=== PATIENT | female | born 1945 | race Caucasian/White ===

== ENCOUNTER 2016-09-03 15:02 | Inpatient (IN) | payer OTHER, MEDICARE ==
[~2016-09-03 15:02] MED LIST: ASCO10003 PO; ATOR1TAB18 PO; ATOR20TA15 PO; BUME1TAB PO; CEFT2INJ2 IV; DOCU100C PO; GABA600T PO; GLUC1CHW PO; GNP5TAB6 PO; IPRASOL NEB; LANTUS2P SQ; LISI2.5T3 PO; LUTE20CA PO; MAGN400T PO; METF1000 PO; METO25TA3 PO; MORP1TAB24 PO; MULT1TAB84 PO; NOVOLOGP2 SQ; NOVOLOGSS SQ; OXYC-392 PO; PANT40P IV PUSH; PANT40TA3 PO; RIFA300C2 PO; SPIR25 PO; VITA10002 SL
[2016-09-03] MEDS: PANTOPRAZOLE 80 MG/100 ML NS IV SCH ×2 (15:59)
[2016-09-03 16:00] VITALS: BP 150/66; PULSE 96; RESP 23; TEMP 98.8; O2SAT 95
[2016-09-03] MEDS: SODIUM BICARBONATE 8.4% INJ 150 MEQ in DEXTROSE 5% IN WATE 1000ML INJ 1,000 ML IV SCH ×2 (16:00)
[2016-09-03 16:05] LABS: ALT (GPT) 12 U/L (10-53); ANION GAP 15 MEQ/L (5-15); AST (GOT) 25 U/L (15-37); BICARBONATE 14.8 MEQ/L (21.0-32.0); BLOOD UREA NITROGEN 30 MG/DL (7-18); CHLORIDE 103 MEQ/L (98-107); GLOMERULAR FILTRATION RATE 54 ML/MIN (>89); POTASSIUM 5.3 MEQ/L (3.5-5.1); SODIUM (NA) 133 MEQ/L (136-145)
[2016-09-03 16:08] LABS: ALKALINE PHOSPHATASE 247 U/L (45-117); TOTAL BILIRUBIN ADULT 1.1 MG/DL (0.2-1.0)
[2016-09-03] MEDS: cefTRIAXone INJ 2,000 MG in SODIUM CHLORIDE 0.9% INJ 100 ML IV SCH (16:09)
[2016-09-03] MEDS: RIFAMPIN INJ 300 MG in SODIUM CHLORIDE 0.9% INJ 100 ML IV SCH (16:10)
--- NOTE | 2016-09-03 17:10 | PD.CONS ---
[facility] Service Critical Care Medicine Consult Requested By Primary Care Physician Unknown History of Present Illness 70 year old female with past medical history of PAFIB, HTN, CHF, S/P AVR 2006, Breast cancer s/p mastectomy, colon cancer s/p partial ascending colon resection with resultant chronic diarrhea who was admitted to [facility] on 07/28/16 with GI bleeding from rectum and was found to be supratherapeutic with INR 5.8 (was on Coumadin). Her hemoglobin dropped and she underwent an EGD and colonoscopy for further evaluation but no clear source of bleeding was identified. She was started on PPI. On 08/06/16, she complained of diplopia and CT of the brain showed a right frontal ischemic CVA . She was anticoagulated with heparin and became supratherapeutic with PTT > 100. She again developed neurological changes and CT showed conversion to hemorrhagic CVA. CTA suspicious for mycotic aneurysm. She became septic with temp 104 and required intubation and shakila drip. She was transferred to [place] on 08/12/16 and underwent coiling. 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 However, RADHA did not show this. She developed respiratory failure/ HCAP and required intubation and mechanical ventilation. ID started her on ceftriaxone 2 gm IV q12 and rifampin 300 mg po bid through 09/29/16. Patient was admitted to [facility] for comprehensive rehabilitation evaluation and treatment 08/27/16. Review of Systems Except as stated in HPI Past Family Social History Allergies: Coded Allergies: Codeine (Verified Allergy, Unknown, 08/27/16) Haldol (Verified Allergy, Unknown, 08/27/16) Past Medical History Recent GI bleed status post EGD and colonoscopy without a clear source of bleeding Right frontal ischemic CVA with conversion to hemorrhagic CVA following anticoagulation with Heparin MSSA bacteremia thought to be related to late onset prosthetic valve endocarditis but with negative RADHA H/O Septic shock during recent hospitalization HCAP requiring intubation Mycotic Aneurysm s/p coiling Paroxysmal atrial fibrillation CHF Hypertension Dyslipidemia Status post MAVR 2006 Breast cancer status post mastectomy Colon cancer status post partial ascending colon resection with subsequent chronic diarrhea Recent fall with resultant L1 compression fracture Past Surgical History s/p AVR 2006 Appendectomy Breast cancer s/p mastectomy colon cancer s/p partial ascending colon resection Reported Medications Acetaminophen (Tylenol) 650 mg Q4H PRN PO; Start 08/27/16 at 16:15 Ascorbic Acid (Vitamin C) 1,000 mg DAILY PO; Start 08/28/16 at 09:00 Atorvastatin Calcium (Lipitor) 80 mg HS PO; Start 08/27/16 at 21:00 Ceftriaxone Sodium/Sodium Chloride (Rocephin Inj/NS Inj) 100 ml @ 200 mls/hr Q12H IV; Start 08/27/16 at 20:00; Stop 09/29/16 at 23:55 Cyanocobalamin (Vitamin B12) 1,000 mcg DAILY PO; Start 08/28/16 at 09:00 Dextrose (D50w (Vial) Inj) 50 ml UNSCH PRN IV; Start 08/27/16 at 16:15 Docusate Sodium (Colace) 100 mg BID PO; Start 08/27/16 at 21:00 Gabapentin (Neurontin) 600 mg HS PO; Start 08/27/16 at 21:00 Glucagon (Glucagon Inj) 1 mg UNSCH PRN OTHER; Start 08/27/16 at 16:15 Heparin Sodium (Porcine) (Heparin Central Flush) DAILY IV FLUSH; Start at 09:00 Heparin Sodium (Porcine) (Heparin Central Flush) UNSCH PRN IV FLUSH; Start at 16:15 Insulin Detemir (Levemir Inj) 10 units HS SQ; Start 08/27/16 at 21:00 Lisinopril (Prinivil) 2.5 mg HS PO; Start 08/27/16 at 21:00 Magnesium Hydroxide (Milk Of Magnesia Liq) 30 ml DAILY PRN PO; Start 08/27/16 at 16:15 Magnesium Oxide (Mag-Ox) 400 mg DAILY PO; Start 08/28/16 at 09:00 Metformin HCl (Glucophage) 1,000 mg BIDPC PO; Start 08/27/16 at 18:00 Miscellaneous (Pill Splitter) 1 ea UNSCH PRN OTHER; Start 08/27/16 at 16:30 Multivitamins (Theragran) 1 tab DAILY PO; Start 08/28/16 at 09:00 Oxycodone HCl (Roxicodone) 5 mg Q4H PRN PO; Start 08/27/16 at 16:15 Oxycodone HCl 10 mg 10 mg Q4H PRN PO; Start 08/27/16 at 16:15 Pantoprazole Sodium (Protonix) 40 mg Q12HR PO; Start 08/27/16 at 21:00 Rifampin (Rifampin) 300 mg Q12HR PO; Start 08/27/16 at 21:00; Stop 09/29/16 at 23:55 Physical Exam Vital Signs Afebrile HR 115/min RR 20s O2sat 94% on 2 lit NC Laboratory Laboratory Tests Test 09/03/16 15:19 Sodium Level 133 Potassium Level 5.3 Chloride Level 103 Carbon Dioxide Level 14.8 Anion Gap 15 Blood Urea Nitrogen 30 Creatinine 1.01 Estimat Glomerular Filtration 54 Rate Random Glucose 152 Calcium Level 7.7 Total Bilirubin 1.1 Aspartate Amino Transf 25 (AST/SGOT) Alanine Aminotransferase 12 (ALT/SGPT) Alkaline Phosphatase 247 Total Protein 5.5 Albumin 1.9 Result Diagram: 09/03/[address] abdomen and pelvis with oral and IV contrast 09/03: Distended stomach and segments of small bowel. Status post partial colectomy. No obvious pattern to suggest mechanical obstruction. Probable ileus. Moderate bilateral pleural effusions, small amount of free fluid in the peritoneal cavity. Assessment and Plan Assessment and Plan 70-year-old female with: Hematemesis Metabolic acidosis Bilateral pleural effusions PAFIB HTN CHF DM S/P Mechanical AVR 13 yrs ago, h/o Breast cancer s/p mastectomy H/o colon cancer s/p partial ascending colon resection h/o Rectal bleeding but negative EGD and colonoscopy 07/28/16 H/o Right frontal ischemic CVA with conversion to hemorrhagic CVA following heparin anticoagulation and supratherapeutic INR H/o Mycotic aneurysm s/p coiling H/o sepsis with MSSA bacteremia (suspected prosthetic valve endocarditis) and respiratory failure/HCAP Plan: Neuro: Follow neuro status. Avoid sedatives. Cardiovascular: Diurese with Bumex. Watch for hypotension. Will schedule for right sided therapeutic thoracentesis by IR for tomorrow. Obtain 2-D echo to further assess prosthetic aortic valve and LV EF. Cardiology consult as patient appears to be in CHF and has a mechanical aortic valve.. Check BNP. Pulm: Maintaining sats on NC. Bumex 1 mg IV every 12 hourly to mobilize fluid in view of bilateral pleural effusions. GI/liver: Nothing by mouth for now. GI consult requested by hospitalist service. CT abdomen and pelvis suggestive of ileus, did not suggest ischemic bowel. Further recommendations per GI. EGD planned for a.m. Protonix gtt Renal/: Strict intake output, monitor and replete elect lites, follow BUN/ creatinine. Bicarbonate drip being initiated for metabolic acidosis which may possibly be related to metformin. Lactic acid normal. Check UA, urine for ketones. ID: Continue ceftriaxone and rifampin Endocrine: SSI for glycemic control. Recommend holding metformin and other oral hypoglycemic agents at this time. Prophylaxis: PPI/SCDs. No heparin or Lovenox in view of hematemesis till cleared by GI. Further medical management per hospitalist service. Discussed with Dr. Luna. Critical care will be available as needed. Patient will remain on hospitalist service at this time. Rajendra Ellsworth MD September 03, 2016 17:10
--- NOTE | 2016-09-03 17:44 | HHI.HP ---
HPI Service [facility] Hospitalists Primary Care Physician Unknown Admission Diagnosis Diagnoses: Chief Complaint: Hematemesis Travel History International Travel<30 Days: No Contact w/Intl Traveler <30 Da: No Traveled to Known Affected Are: No History of Present Illness This is a 70-year-old female with past medical history of paroxysmal atrial fibrillation not on anti-correlation secondary to GI bleed, hypertension, CHF, status post aVR 2005, breast cancer status post mastectomy, colon cancer status post partial ascending colon resection with resultant chronic diarrhea who is being admitted to the intensive care unit as to being transferred from [facility]. The patient was admitted to [facility] on July 28 with GI bleeding from the rectum and he was found to have a supratherapeutic INR 5.8, at that time he was, at that time she was on Coumadin. The patient underwent an EGD and colonoscopy for further evaluation after her hemoglobin dropped however no clear source of bleeding was identified. She was started then on a PPI. On 08/06/16, she complained of diplopia and CT of the brain showed right frontal ischemic CVA. She was anticoagulated with heparin and had a hemorrhagic conversion. Patient had a CTA which was suspicious for mycotic aneurysm. The patient then became septic with a temperature of 104 and at the time requiring intubation and Henrry-Synephrine drip. The patient was transferred to [facility] on 08/12/16 and underwent coiling. As per review of medical records her stay was complicated by sepsis and MSSA bacteremia thought to be related to prosthetic valve endocarditis. However a RADHA was done and it failed to show this. The patient then developed respiratory failure/H And required intubation and mechanical ventilation after which the patient was treated on Rocephin 2 g IV every 12 verified then 300 mg by mouth twice a day with an end date on 09/29/16. The patient was admitted to [facility] for comprehensive rehabilitation evaluation and treatment on 08/27/16. Today the patient had an episode of coffee-ground emesis. The patient is currently complaining of abdominal pain. Has been noted that the patient desats into the high 70s when off oxygen. As per the report of the Leopoldo Means the patient complained of chest pain. The patient states that she does not remember what happened, or vomiting earlier. The patient however does state that she was feeling very nauseous yesterday. Currently denies any shortness of breath, chest pain, fevers, chills, denies any nausea. CT of the abdomen and pelvis was ordered and this showed a relatively diffuse intention of the small bowel and colon, possible representing ileus. There are a few decompressed segments of small bowel. Pattern is present to indicate small bowel obstruction. There is a small amount free fluid in the abdomen and pelvis. Moderate size bilateral pleural effusions with atelectasis and consolidation in the lower lobes as well as anasarca. Review of Systems As per history of present illness, other systems reviewed by me and negative Past Family Social History Past Medical History Recent fall with resultant L1 compression fracture Colon cancer status post partial ascending colon resection with subsequent chronic diarrhea Breast cancer status post mastectomy Status post MVR in 2005 Hypertension Dyslipidemia CHF Paroxysmal insufflation Mycotic aneurysm status post coiling HCAP requiring intubation History of septic shock during recent hospitalization MSSA bacteremia thought to be related to late onset prostatic valve endocarditis but with negative RADHA 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 Past Surgical History Status post aVR in 2005 Appendectomy Breast cancer status post mastectomy Colon cancer status post partial colon resection Reported Medications Reported Meds & Active Scripts Active Aldactone (Spironolactone) 25 Mg Tab 25 Mg PO DAILY Gnp Melatonin Maximum Str (Melatonin) 5 Mg Tab 5 Mg PO HS PRN Novolog Inj (Insulin Aspart) 100 Unit/Ml Inj 1 Unit SQ ACHS SLIDING SCALE PRN 30 Days Duoneb (Ipratropium-Albuterol Neb) 0.5-2.5 Mg/3 Ml Neb 1 Ampule NEB TID NEB 30 Days Bumetanide 1 Mg Tab 2 Mg PO BID@09,18 Protonix Inj (Pantoprazole Sodium) 40 Mg Inj 40 Mg IV PUSH Q12H Metoprolol Tartrate 25 Mg Tab 12.5 Mg PO Q12HR Morphine ER (Morphine Sulfate) 15 Mg Tab 15 Mg PO Q12HR Oxycodone (Oxycodone HCl) 5 Mg Tab 7.5 Mg PO Q4H PRN Atorvastatin (Atorvastatin Calcium) 20 Mg Tab 20 Mg PO DAILY Reported Rifampin 300 Mg Cap 300 Mg PO BID NEB end date 09/29/2016 Ceftriaxone Inj (Ceftriaxone Sodium/Dextrose) 2 Gm/50 Ml Bagp 2 Gm IV Q12H end date 09/29/2016 Multivitamin Adults (Multiple Vitamins W/ Minerals) 1 Tab 1 Tab PO DAILY Magnesium Oxide 400 Mg Tab 400 Mg PO DAILY Lisinopril 2.5 Mg Tab 2.5 Mg PO DAILY Gabapentin 600 Mg Tab 600 Mg PO HS Docusate Sodium 100 Mg Cap 100 Mg PO DAILY Vitamin B-12 (Cyanocobalamin) 1,000 Mcg Tab 1,000 Mcg SL DAILY Ascorbic Acid 1,000 Mg Tab 1,000 Mg PO DAILY Allergies: Coded Allergies: Codeine (Verified Allergy, Unknown, 08/27/16) Haldol (Verified Allergy, Unknown, 08/27/16) Active Ordered Medications Current Medications Medications (Trade) Dose Ordered Sig/Randy Route Start Time Stop Time Status Last Admin Pantoprazole Sodium 80 mg/ Sodium Chloride 100 ml @ 10 mls/hr Q10H IV 09/03/16 16:00 09/03/16 15:59 Sodium Bicarbonate 150 meq/Dextrose 1,150 ml @ 42 mls/hr Q24H IV 09/03/16 17:00 09/03/16 16:00 Ceftriaxone Sodium 2000 mg/ Sodium Chloride 100 ml @ 200 mls/hr Q12H IV 09/03/16 16:00 09/03/16 16:09 (Rifampin Inj/NS Inj) 100 ml @ 100 mls/hr Q12H IV 09/03/16 18:00 09/03/16 16:10 (Bumex Inj) 1 mg BID@,18 IV PUSH 09/03/16 18:00 Family History Father, [place]/CVA Mother, CVA Social History Patient admits to previous history of tobacco use. Denies any alcohol consumption or illicit drug use. Physical Exam Vital Signs Vital Signs Date Time Temp Pulse Resp B/P Pulse Ox O2 Delivery O2 Flow Rate FiO2 09/03/16 16:00 98.8 96 23 150/66 95 Physical Exam GENERAL: This is a well-nourished, well-developed patient, in moderate respiratory distress. SKIN: No rashes, ecchymoses or lesions. Cool and dry. HEAD: Atraumatic. Normocephalic. No temporal or scalp tenderness. EYES: Pupils equal round and reactive. Extraocular motions intact. No scleral icterus. No injection or drainage. ENT: Nose without bleeding, purulent drainage or septal hematoma. Throat without erythema, tonsillar hypertrophy or exudate. Uvula midline. Airway patent. NECK: Trachea midline. No JVD or lymphadenopathy. Supple, nontender, no meningeal signs. CARDIOVASCULAR: Regular rate and rhythm without murmurs, gallops, or rubs. RESPIRATORY: Clear to auscultation. Breath sounds equal bilaterally but decreased at the bases. No wheezes, rales, or rhonchi. GASTROINTESTINAL: Abdomen soft, non-tender, nondistended. No hepato-splenomegaly , or palpable masses. No guarding. MUSCULOSKELETAL: Extremities without clubbing, cyanosis, or edema. No joint tenderness, effusion, or edema noted. No calf tenderness. Negative Homans sign bilaterally. NEUROLOGICAL: Awake and alert. Cranial nerves II through XII intact. Motor and sensory grossly within normal limits. moves all extremities Normal speech. Laboratory Laboratory Tests Test 09/03/16 15:19 Sodium Level 133 Potassium Level 5.3 Chloride Level 103 Carbon Dioxide Level 14.8 Anion Gap 15 Blood Urea Nitrogen 30 Creatinine 1.01 Estimat Glomerular Filtration 54 Rate Random Glucose 152 Calcium Level 7.7 Total Bilirubin 1.1 Aspartate Amino Transf 25 (AST/SGOT) Alanine Aminotransferase 12 (ALT/SGPT) Alkaline Phosphatase 247 Total Protein 5.5 Albumin 1.9 Result Diagram: 09/03/16 1519 Imaging Chest x-ray obtained on 09/03/16 shows bibasilar opacities likely representing airspace consolidation with possible pleural effusions. Abdomen x-ray obtained on 09/03/16 shows a normal bowel gas pattern with mild diffuse distention of the small bowel and colon. No transition point is appreciated suggesting ileus as potential cause. CT abdomen and pelvis shows relatively diffuse distention of the small bowel and colon, possibly representing ileus. Moderate sized bilateral pleural effusions with atelectasis and consolidation in the lower lobes. Anasarca. Assessment and Plan Problem List: (1) Hematemesis ICD Code: K92.0 Status: Acute Plan: Admit the patient to the intensive care unit. CT abdomen and pelvis is suggestive of ileus, GI consulted. EGD planned in a.m. (2) Metabolic acidosis ICD Code: E87.2 Status: Acute Plan: Present on bicarbonate drip. Monitor BMP. (3) Bilateral pleural effusion ICD Code: J90 Status: Acute Plan: IR consulted for right-sided the therapeutic thoracentesis. 2-D echocardiogram to assess pleural effusions. Diuresis with Bumex 1 mg IV twice a day (4) Paroxysmal a-fib ICD Code: I48.0 Status: Chronic Plan: Continue metoprolol 12.5 mg by mouth twice a day for rate control. (5) Mycotic aneurysm ICD Code: I72.9 Status: Resolved Plan: Sp coiling (6) HTN (hypertension) ICD Code: I10 Status: Chronic Plan: I will hold lisinopril given acute worsening creatinine. We'll continue metoprolol. (7) HLD (hyperlipidemia) ICD Code: E78.5 Status: Chronic Plan: not currently on a statin. Check lipid profile. (8) MSSA (methicillin susceptible Staphylococcus aureus) septicemia ICD Code: A41.01 Status: Chronic Plan: Will continue IV Rocephin and IV rifampin. (9) NANCY (acute kidney injury) ICD Code: N17.9 Status: Acute Plan: Patient's creatinine seems to be worsening. Creatinine today 1.01, baseline seems to be 0.8-0.9. Monitor BUN/creatinine, strict I's and O's (10) HCAP (healthcare-associated pneumonia) ICD Code: J18.9 Status: Acute Plan: Antibiotics as above. (11) S/P AVR ICD Code: Z95.2 Status: Chronic Plan: Check 2-D echocardiogram. Mechanical aVR 13 years ago. (12) Anasarca ICD Code: R60.1 Status: Acute Plan: Monitor on telemetry, diurese IV Bumex 1 mg 2 times a day. Follow-up strict input and output. Insert Ruiz catheter to follow up strict I's and O's. (13) Acute hypoxemic respiratory failure ICD Code: J96.01 Status: Acute Plan: Patient currently on 50% Ventimask, descending into the high 70s when off oxygen. Patient is at risk for DVT and pulmonary emboli. Will order a CTA of the chest to rule out PE. (14) Lower extremity pain, bilateral ICD Code: M79.604 Status: Acute Plan: Bilateral lower extremity pain on exam. Check venous Dopplers to rule out DVT. (15) Diabetes ICD Code: E11.9 Status: Acute Plan: Hold metformin. We'll place on SSI with insulin NovoLog and monitor Accu -Cheks. Assessment and Plan GI prophylaxis: Patient on Protonix drip. DVT Prophylaxis: SCDs, chemoprophylaxis contraindicated secondary to recent hematemesis. 45 minutes of critical care time spent with patient. Code Status Full code Discussed Condition With Patient, manager rn case, Dr. Mayfield, [employer] Physician Certification 2 Midnight Certification Type: Admission for Inpatient Services Order for Inpatient Services The services are ordered in accordance with Medicare regulations or non- Medicare payer requirements, as applicable. In the case of services not specified as inpatient-only, they are appropriately provided as inpatient services in accordance with the 2-midnight benchmark. Estimated LOS (days): 2 days is the estimated time the patient will need to remain in the hospital, assuming treatment plan goals are met and no additional complications. Post-Hospital Plan: Home Problem Qualifiers (1) Hematemesis: Qualified Code: K92.0 - Hematemesis without nausea (2) HTN (hypertension): Qualified Code: I10 - Essential hypertension (3) Diabetes: Qualified Code: E11.9 - Type 2 diabetes mellitus without complication, unspecified termination clerk insulin use status Raleigh Casas MD September 03, 2016 17:44
[2016-09-03 18:00] VITALS: PULSE 90
[2016-09-03] MEDS: BUMETANIDE INJ 1 MG/4 ML VIAL IV PUSH SCH (18:37)
[2016-09-03] MEDS ORDERED: PILL SPLITTER OTHER PRN (19:00)
[2016-09-03] MEDS ORDERED: GLUCAGON 1 MG/ML VIAL OTHER PRN (19:30)
[2016-09-03] MEDS ORDERED: DEXTROSE 50% IN WATER 50 ML VIAL(D50) IV PRN (19:30)
[2016-09-03 19:37] VITALS: O2SAT 94
[2016-09-03 20:00] VITALS: BP 136/63; PULSE 90; RESP 17; TEMP 99; O2SAT 98
[2016-09-03] MEDS: INSULIN ASPART SUPPLEMENTAL SCALE SQ SCH (20:17)
[2016-09-03] MEDS: METOPROLOL TARTRATE 25 MG TAB PO SCH (20:17)
[2016-09-03] MEDS ORDERED: MORPHINE SULFATE 4 MG/ML INJ IV PUSH ONE (21:15)
[2016-09-03 22:00] VITALS: PULSE 88
--- NOTE | 2016-09-03 22:31 | RADRPT ---
EXAM DATE/TIME: 09/03/2016 22:02 [facility] COMPARISON: No previous studies available for comparison. INDICATIONS : Chest pain and elevated d-dimer. DOSE: 8.1 mCi Tc99m MAA IV 0.6 mCi Tc99m DTPA aerosol MEDICAL HISTORY : Carcinoma, breast. Carcinoma, colon. Myocardial infarction. SURGICAL HISTORY : Mastectomy, right. Appendectomy. Colon resection. ENCOUNTER: Initial ACUITY: 1 day PAIN SCALE: 3/10 LOCATION: Bilateral chest TECHNIQUE: Following five minutes of tidal breathing of DTPA aerosol, planar images of the lungs were performed in eight projections. The patient was then injected with MAA, and eight-view perfusion scan was perf ormed. FINDINGS: There is a homogeneous pattern of aerosol delivery to the periphery of both lungs. No focal ventilat ory defects are seen. Bilateral air trapping is noted. The perfusion lung scan demonstrates a homogenous pattern of uptake in both lungs. No segmental or s ubsegmental defects are seen. CONCLUSION: Low probability for pulmonary embolism. Mikel Ross MD on September 03, 2016 at 22:28 Board Certified Radiologist. This report was verified electronically.
[2016-09-03 22:55] LABS: BACTERIA, URINE MOD /hpf; BLOOD, URINE NEG (NEG); GLUCOSE,URINE NEG (NEG); KETONE, URINE TRACE mg/dL (NEG); MUCUS URINE FEW /lpf (OCC); NITRITE,URINE NEG (NEG); SQUAMOUS EPITHELIAL CELL URINE <1 /hpf (0-5); URINE COLOR DARK-YELLOW (YELLW/STRAW)
[2016-09-03 22:58] LABS: COMMENT (UR) CATH-CULTURE IND; CULTURE IF INDICATED CATH CULTURE IND
[2016-09-04] VITALS (21 sets, daily range): BP systolic 89–124; BP diastolic 46–61; PULSE 79–86; RESP 15–36; TEMP 98.5–100.3; O2SAT 95–100
[2016-09-04] MEDS: PANTOPRAZOLE 80 MG/100 ML NS IV SCH ×6 (01:31→20:29)
[2016-09-04 04:50] LABS: AUTOMATED NEUTROPHIL # 7.4 TH/MM3 (1.8-7.7); BASOPHIL # 0.1 TH/MM3 (0-0.2); BASOPHIL % 0.6 % (0.0-2.0); EOSINOPHIL # 0.2 TH/MM3 (0-0.4); EOSINOPHIL % 1.9 % (0.0-4.0); HEMATOCRIT 25.6 % (35.0-46.0); HEMO FLAGS DIFF FINAL; MEAN CELL VOLUME 90.7 FL (80.0-100.0); MEAN CORPUSCULAR HEMOGLOBIN 29.9 PG (27.0-34.0); MONO % 8.2 % (0.0-8.0); NEUT % 78.3 % (16.0-70.0); PLATELET COUNT 166 TH/MM3 (150-450); RED BLOOD COUNT 2.83 MIL/MM3 (4.00-5.30); RED CELL DISTRIBUTION WIDTH 21.2 % (11.6-17.2); WHITE BLOOD COUNT 9.4 TH/MM3 (4.0-11.0)
[2016-09-04] MEDS: cefTRIAXone INJ 2,000 MG in SODIUM CHLORIDE 0.9% INJ 100 ML IV SCH (06:11)
[2016-09-04] MEDS: RIFAMPIN INJ 300 MG in SODIUM CHLORIDE 0.9% INJ 100 ML IV SCH ×2 (06:11→18:10)
[2016-09-04] MEDS: INSULIN ASPART SUPPLEMENTAL SCALE SQ SCH ×4 (06:11→20:30)
--- NOTE | 2016-09-04 08:14 | EKG ---
Date Performed: 09/03/2016 Time Performed: 21:16:34 PTAGE: 70 years EKG: ATRIAL FIBRILLATION LOW QRS VOLTAGE IN EXTREMITY LEADS NONSPECIFIC T-WAVE ABNORMALITY ABNOR MAL ECG NO PREVIOUS TRACING DOCTOR: [place] Daniel Interpretating Date/Time 09/04/2016 08:13:15
[2016-09-04] MEDS: METOPROLOL TARTRATE 25 MG TAB PO SCH ×2 (08:22→20:30)
[2016-09-04] MEDS: BUMETANIDE INJ 1 MG/4 ML VIAL IV PUSH SCH (08:22)
--- NOTE | 2016-09-04 08:35 | EKG ---
Date Performed: 09/04/2016 Time Performed: 08:13:42 PTAGE: 70 years EKG: ATRIAL FIBRILLATION LOW QRS VOLTAGE IN EXTREMITY LEADS NONSPECIFIC T-WAVE ABNORMALITY ABNOR MAL ECG PREVIOUS TRACING : 09/03/2016 21.16 No significant change from previous tracing noted. DOCTOR: Cuba Daniel Interpretating Date/Time 09/04/2016 08:33:33
--- NOTE | 2016-09-04 11:07 | RADRPT ---
EXAM DATE/TIME: 09/04/2016 09:34 [facility] COMPARISON: No previous studies available for comparison. INDICATIONS : Bilateral leg pain. MEDICAL HISTORY : Myocardial infarction. Headache. Hypertension. Dyspnea. Diabetes. Breast cancer. Chemotherapy. Radi ation therapy. A.FIB. GI bleed. CVA. Mycotic aneurysm. MRSA. SURGICAL HISTORY : Appendectomy. Mastecotomy. Colon resection. EGD. Colonscopy. Mycotic aneurysm coiling. [place] valve re placment. Intabation. ENCOUNTER: Initial ACUITY: 1 day PAIN SCORE: Non-responsive LOCATION: Bilateral legs. TECHNOLOGIST IMPRESSION: DVT: NO DVT SUPERFICIAL THROMBUS: NO SUPERFICIAL THROMBUS TECHNIQUE: Venous ultrasound of the left and right leg was performed from the inguinal ligament to the proximal calf. Real-time, color Doppler and spectral tracing, compression and augmentation techniques were us ed. FINDINGS: RIGHT LEG: There is normal compressibility of the deep venous system from the inguinal region to the proximal ca lf. No echogenic clot is seen in the lumen of the common femoral, femoral, popliteal, and posterior tibial veins. There is a normal response of the venous system to proximal and distal augmentation an d respiration. LEFT LEG: There is normal compressibility of the deep venous system from the inguinal region to the proximal ca lf. No echogenic clot is seen in the lumen of the common femoral, femoral, popliteal, and posterior tibial veins. There is a normal response of the venous system to proximal and distal augmentation an d respiration. CONCLUSION: No evidence of DVT. Rohith Gibson MD on September 04, 2016 at 11:05 Board Certified Radiologist. This report was verified electronically.
[2016-09-04] MEDS ORDERED: Vancomycin Consult Pharmacy 1 EA OTHER SCH (11:15)
[2016-09-04] MEDS ORDERED: VANCOMYCIN INJ 1,000 MG in SODIUM CHLOR 0.9% 250 ML INJ 250 ML IV SCH (11:15)
--- NOTE | 2016-09-04 12:00 | MB ---
cc: JACKY BLACK DO DATE OF CONSULTATION: 09/04/2016 REASON FOR CONSULTATION: Congestive heart failure. HISTORY OF PRESENT ILLNESS 70-year-old female who originally presented to a rehab at [place] on August 27, 2016. The patient has had a long complicated course of multiple hospitals and appears that she was originally admitted to [facility] on July 28, 2016 with a GI bleed and was found have a super therapeutic INR 5.8. At that time she was on Coumadin for her atrial fibrillation with a history of atrial fibrillation with a history of AVR. She will underwent EGD and colonoscopy, however no clear source of bleeding was identified. On August 06, 2016 she complained of diplopia and CT the brain showed a right frontal ischemic CVA. She was anticoagulated with heparin and then had a hemorrhagic conversion of her CVA. The patient had a CTA which would showed suspicion for a mycotic aneurysm. At the time the patient was septic and had a temperature of 104 degrees Fahrenheit and was intubated and started on a Henrry-Synephrine drip. The patient was transferred to [facility] and on August 12, 2016 underwent coiling of her mycotic aneurysm. During her stay she had other complications including sepsis and MSSA bacteremia. A transesophageal echocardiogram was done and failed to show prosthetic valve endocarditis. While there the patient developed respiratory failure and required intubation. The patient was then he eventually transferred to [place] rehab on August 27, 2016. On September 03, 2016 the patient had an episode of coffee-ground emesis. The patient was also complaining of abdominal pain at that time. She was also noted to desaturate into the high 70s when off oxygen. Hemoglobin was checked this morning and she had a drop of 3 grams. She was also noted to have moderate size bilateral pleural effusions with atelectasis. In seeing her today she is currently lethargic and unable to answer questions. PAST MEDICAL HISTORY 1. Recent GI bleed. 2. 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 Following anticoagulation with heparin. 3. MSSA bacteremia. 4. History of septic shock. 5. HCAP requiring intubation. 6. Mycotic aneurysm. 7. Paroxysmal atrial fibrillation previously on anticoagulation which has since been stopped due to due to hemorrhagic CVA. 8. History of congestive heart failure. 9. Dyslipidemia. 10. Hypertension 11. Breast cancer 12. Colon cancer PAST SURGICAL HISTORY 1. AVR (2005) no true documentation of bioprosthetic vs metal 2. Esophagogastroduodenoscopy and colonoscopy (July 2016) with unclear source of bleeding. 3. Coiling of mycotic aneurysm (August 2016) 4. Mastectomy due to breast cancer. 5. Partial ascending colon resection secondary to colon cancer. 6. Appendectomy. ALLERGIES 1. CODEINE 2. HALDOL MEDICATIONS: 1. Lisinopril 2.5 mg daily 2. Magnesium oxide 400 mg daily. 3. Gabapentin 600 mg every bedtime 4. DuoNeb t.i.d. 5. Rifampin 300 mg b.i.d. 6. Metoprolol tartrate 12.5 mg q 12. 7. Dolacet 100 mg daily 8. Rocephin 2 grams every 12 hours. 9. Lipitor 20 mg daily 10. Insulin sliding scale. 11. T-max 2 mg b.i.d. 12. Aldactone 25 mg daily 13. Morphine ER 15 mg q. 12. 14. Oxycodone 7.5 mg every 4 hours needed. 15. Protonix 40 mg IV q. 12. FAMILY HISTORY Father had a history of MT and CVA. Mother had a history of CVA. SOCIAL HISTORY The patient had a previous history of tobacco abuse. Denies alcohol or drug abuse. REVIEW OF SYSTEMS Unable to obtain at this time secondary to the patient's current state. PHYSICAL EXAMINATION VITAL SIGNS: Temperature 99.8, heart rate 80, blood pressure 122/58, respirations 22, pulse ox 96% on 4 liters. IN GENERAL: The patient is currently lethargic, per previous records. She was oriented x3. Pupils are equal and round bilaterally. Mucous membranes moist. NECK: Supple. No JVD at 45 degrees. No carotid bruits heard bilaterally. Carotid upstroke is brisk in nature. It is irregularly irregular. Positive first and second heart sounds with a 1/6 crescendo-decrescendo murmur to the right sternal border. LUNGS: Lungs have decreased breath sounds at bilateral bases but no overt wheezes, rales or rhonchi. ABDOMEN: The abdomen is soft, nontender, nondistended, no organomegaly noted. EXTREMITIES: Show trace edema bilaterally but no erythema clubbing or cyanosis. NEUROLOGICALLY: Unable to assess due to the patient's current lethargic state. LABORATORY FINDINGS Hemoglobin 8.5, hematocrit 25.6, platelets 166. Potassium 5.3, BUN 30, creatinine 1.01. Troponin 0.06 x3. BNP 958, albumin 1.9. Gastric occult blood positive. Electrocardiogram (September 04, 2016 at 0813) atrial fibrillation with controlled ventricular response, low QRS voltage in extremity leads, nonspecific ST-T wave changes. IMPRESSION 1. Hematemesis. 2. Metabolic acidosis. 3. Bilateral pleural effusions with a history of congestive heart failure. 4. Paroxysmal atrial fibrillation not currently on anticoagulation due to hemorrhagic CVA. 5. Myocardial aneurysm status post coiling (August 2016) 6. History of hypertension 7. History of hyperlipidemia 8. Recent MSSA bacteremia with sepsis. 9. Acute kidney injury. 10. Healthcare associated pneumonia. 11. History of aortic valve replacement, unsure at this time if bioprosthetic or metal 12. Acute hypoxemic respiratory failure. 13. Right frontal ischemic cerebrovascular accident (August 06, 2016) with hemorrhagic conversion after receiving heparin. RECOMMENDATIONS 1. The patient currently has bilateral pleural effusions which may be due to congestive heart failure. We will get an echocardiogram to assess her overall left ventricular function and to evaluate her aortic valve replacement. She had a Transesophageal echocardiogram done recently which showed no endocarditis but this may need to be repeated if there is concern for a subacute endocarditis. This will depend on her clinical course. 2. Agree with thoracentesis by interventional radiology. 3. She does have a minimally elevated troponin and there is question of chest pain yesterday but she does not currently appear to be in acute coronary syndrome. Overall she would not be a candidate for cardiac catheterization, so would not go through with an ischemic evaluation. 4. As far as her atrial fibrillation goes, it is currently controlled. She does not appear to be an anticoagulation candidate secondary to her recent hemorrhagic cerebrovascular accident. 5. We will attempt to diurese her, but we will have to watch her for overall renal function. 6. She may have bilateral pleural effusions as well as anasarca due to hypoalbuminemia. 7. Final concern would be if her valve is metallic, as she does not appear to be an anticoagulation candidate due to her recent hemorrhagic CVA and possible GI Bleed off anticoagulation. 8. Further recommendations will be made based on the hospital course. Thank you for allowing me to see Pamella Patel, if there are any questions please do not hesitate to call. Jacky Dan /10:12 AM /11:16 AM [facility]ERSepide[facility]
[2016-09-04] MEDS: SODIUM CHLOR 0.9% 1000 ML INJ 1,000 ML IV SCH ×2 (12:11→20:30)
[2016-09-04] MEDS: PIPERACIL-TAZO 4.5 GM PREMIX 100 ML IV SCH ×2 (12:11→20:30)
[2016-09-04 12:17] LABS: ALT (GPT) 11 U/L (10-53); ANION GAP 10 MEQ/L (5-15); AST (GOT) 23 U/L (15-37); BICARBONATE 19.8 MEQ/L (21.0-32.0); BLOOD UREA NITROGEN 32 MG/DL (7-18); CHLORIDE 104 MEQ/L (98-107); GLOMERULAR FILTRATION RATE 36 ML/MIN (>89); POTASSIUM 5.3 MEQ/L (3.5-5.1); SODIUM (NA) 134 MEQ/L (136-145)
[2016-09-04 12:19] LABS: ALKALINE PHOSPHATASE 202 U/L (45-117)
[2016-09-04 12:37] LABS: BLOOD GAS BASE EXCESS -8.8 mmol/L (-2-2); BLOOD GAS CARBOXYHEMOGLOBIN 2.9 % (0-4); BLOOD GAS HCO3 17 mmol/L (22-26); BLOOD GAS METHEMOGLOBIN 1.1 % (0-2); BLOOD GAS O2 HGB SATURATION 91 % (90-100); BLOOD GAS PCO2 37 mmHg (38-42); BLOOD GAS PO2 74 mmHg (61-120); BLOOD GAS TOTAL HGB 8.5 G/DL (12.0-16.0); TEMP CORR TO 98.6
[2016-09-04 12:42] LABS: CRITICAL VALUE YES; DRAW SITE LT RADIAL; LITER FLOW 4 L/M; NUMBER OF ARTERIAL PUNCTURES 2; OXYGEN DEVICE NASAL CANNULA; STAT YES; ULNAR PULSE Y
[2016-09-04] MEDS: VANCOMYCIN INJ 1,750 MG in SODIUM CHLORID 0.9% 500 ML INJ 500 ML IV SCH (14:27)
[2016-09-04] MEDS ORDERED: SODIUM CHLORID 0.9% 500 ML INJ 500 ML IV ONE ×2 (15:00→20:00)
--- NOTE | 2016-09-04 15:31 | HHI.PR ---
Subjective Remarks Deferred entry - patient seen at 11:30 am As per RN patient very lethargic Patient wakes up for a few seconds and then goes back to sleep Patient had a low grade fever with a Tmax of 100.3 tachypneic Objective Vitals Vital Signs Date Time Temp Pulse Resp B/P Pulse Ox O2 Delivery O2 Flow Rate FiO2 09/04/16 13:05 Nasal Cannula 4.00 09/04/16 13:00 81 09/04/16 13:00 81 19 96/46 98 09/04/16 12:00 83 09/04/16 12:00 99.7 83 17 98/48 96 09/04/16 11:01 84 09/04/16 11:01 84 17 104/47 96 09/04/16 11:00 83 09/04/16 11:00 83 17 95 09/04/16 10:00 84 09/04/16 10:00 84 18 122/58 95 09/04/16 09:00 81 09/04/16 09:00 81 32 122/58 97 09/04/16 08:00 79 09/04/16 08:00 100.3 79 18 117/52 97 09/04/16 06:00 81 09/04/16 04:00 84 09/04/16 04:00 99.8 84 36 96/49 96 09/04/16 02:00 84 09/04/16 00:00 84 09/04/16 00:00 99.3 84 17 106/51 97 09/03/16 22:00 88 09/03/16 20:00 90 09/03/16 20:00 99.0 90 17 136/63 98 09/03/16 19:37 94 Nasal Cannula 5.00 09/03/16 18:00 90 09/03/16 16:00 98.8 96 23 150/66 95 09/03/16 16:00 96 I/O 09/03/16 09/03/16 09/03/16 09/04/16 09/04/16 09/04/16 07:00 15:00 23:00 07:00 15:00 23:00 Intake Total 644 ml 284 ml Output Total 225 ml 75 ml Balance 419 ml 209 ml Intake Oral 0 ml 0 ml IV Total 644 ml 284 ml Output Urine Total 225 ml 75 ml # Bowel Movements 0 0 Result Diagram: 09/04/16 0400 09/04/16 1130 Imaging Last Impressions Lower Extremity Ultrasound 09/04/16 0000 Signed Impressions: Service Date/Time: Sunday, September 04, 2016 09:34 - CONCLUSION: No evidence of DVT. Rohith Gibson MD Lung Scan-VQ Nuclear Medicine 09/03/16 0000 Signed Impressions: Service Date/Time: Saturday, September 03, 2016 22:02 - CONCLUSION: Low probability for pulmonary embolism. Mikel Ross MD Objective Remarks GENERAL: This is a well-nourished, well-developed patient, nad. SKIN: No rashes, ecchymoses or lesions. Cool and dry. HEAD: Atraumatic. Normocephalic. No temporal or scalp tenderness. EYES: Pupils equal round and reactive. Extraocular motions intact. No scleral icterus. No injection or drainage. ENT: Nose without bleeding, purulent drainage or septal hematoma. Throat without erythema, tonsillar hypertrophy or exudate. Uvula midline. Airway patent. NECK: Trachea midline. No JVD or lymphadenopathy. Supple, nontender, no meningeal signs. CARDIOVASCULAR: Regular rate and rhythm without murmurs, gallops, or rubs. RESPIRATORY: Clear to auscultation. Breath sounds equal bilaterally but decreased at the bases. No wheezes, rales, or rhonchi. GASTROINTESTINAL: Abdomen soft, non-tender, nondistended. No hepato-splenomegaly , or palpable masses. No guarding. MUSCULOSKELETAL: Extremities without clubbing, cyanosis, or edema. No joint tenderness, effusion, or edema noted. No calf tenderness. Negative Homans sign bilaterally. NEUROLOGICAL: Lethargic. Difficult to asses rest of neurologic exam at this time. moves all extremities. Medications and IVs Current Medications Medications (Trade) Dose Ordered Sig/Randy Route Start Time Stop Time Status Last Admin Pantoprazole Sodium 80 mg/ Sodium Chloride 100 ml @ 10 mls/hr Q10H IV 09/03/16 16:00 09/04/16 12:15 Sodium Bicarbonate 150 meq/Dextrose 1,150 ml @ 42 mls/hr Q24H IV 09/03/16 17:00 09/03/16 16:00 Ceftriaxone Sodium 2000 mg/ Sodium Chloride 100 ml @ 200 mls/hr Q12H IV 09/03/16 16:00 Hold 09/04/16 06:11 (Rifampin Inj/NS Inj) 100 ml @ 100 mls/hr Q12H IV 09/03/16 18:00 09/04/16 06:11 (Bumex Inj) 1 mg BID@09,18 IV PUSH 09/03/16 18:00 Hold 09/04/16 08:22 (Lopressor) 12.5 mg Q12HR PO 09/03/16 21:00 09/04/16 08:22 (Pill Splitter) 1 ea UNSCH PRN OTHER 09/03/16 19:00 (D50w (Vial) Inj) 50 ml UNSCH PRN IV 09/03/16 19:30 Glucagon 1 mg 1 mg UNSCH PRN OTHER 09/03/16 19:30 Pharmacy Profile Note 0 ml @ 0 mls/hr UNSCH OTHER 09/04/16 11:15 Piperacillin Sod/ Tazobactam Sod 100 ml @ 200 mls/hr Q8H IV 09/04/16 12:00 09/04/16 12:11 Sodium Chloride 1,000 ml @ 100 mls/hr Q10H IV 09/04/16 12:00 09/04/16 12:11 (Vancomycin Inj/ NS 500 ml Inj) 517.5 ml @ 250 mls/hr Q18H IV 09/04/16 14:00 09/04/16 14:27 Miscellaneous Information SPECIFIC LAB TO BE DRAWN:VANCOMYCIN TROUGH DATE TO... ONCE ONCE .XX 09/06/16 19:45 09/06/16 19:46 (NS 500 ml Inj) 500 ml @ 500 mls/hr BOLUS ONCE IV 09/04/16 15:00 09/04/16 15:59 UNV Urinary Catheter: Yes Assessment to: Continue Ruiz insert reason: Measure Accurate Output Vascular Central Line Catheter: No A/P Problem List: (1) Sepsis ICD Code: A41.9 Status: Acute Plan: Present on admission - patient with hr > 93 and RR > 20, now has elevated temp 100.3 F Patient previously on Rocephin and Azithromycin for treatment of HCAP. Will broaden antibiotic therapy and DC previous antibiotics and start IV vancomycin and Zosyn. Consult infectious disease. (2) Encephalopathy ICD Code: G93.40 Status: Acute Plan: Likely metabolic encephalopathy from sepsis. Will check CT brain due to recent history of MCV. (3) Hematemesis ICD Code: K92.0 Status: Acute Plan: Admit the patient to the intensive care unit. CT abdomen and pelvis is suggestive of ileus, GI consulted. EGD planned today fu Gi recommendations Hemoglobin dropped down to 8.5. Continue to monitor H&H. Transfuse for hemoglobin less than 7, or less than 8 if the patient is actively bleeding. Goal hemoglobin more than 9. (4) Metabolic acidosis ICD Code: E87.2 Status: Acute Plan: Metacarpal BMP is trending up. Continue bicarbonate drip. (5) Bilateral pleural effusion ICD Code: J90 Status: Acute Plan: IR consulted for right-sided the therapeutic thoracentesis. 2-D echocardiogram to assess pleural effusions. Diuresis with Bumex 1 mg IV twice a day (6) Paroxysmal a-fib ICD Code: I48.0 Status: Chronic Plan: Continue metoprolol 12.5 mg by mouth twice a day for rate control. Will add holding parameters since patient slightly hypotensive. (7) Mycotic aneurysm ICD Code: I72.9 Status: Resolved Plan: Sp coiling (8) HTN (hypertension) ICD Code: I10 Status: Chronic Plan: Patient hypotensive. will hold beta monse for now due to hypotension. (9) HLD (hyperlipidemia) ICD Code: E78.5 Status: Chronic Plan: not currently on a statin. Check lipid profile. (10) MSSA (methicillin susceptible Staphylococcus aureus) septicemia ICD Code: A41.01 Status: Chronic Plan: Will place on Iv Vancomycin and zosym, Previously on Rocephin and Azithromycin. check blood cultures consult infectious disease. (11) NANCY (acute kidney injury) ICD Code: N17.9 Status: Acute Plan: Patient's creatinine seems to be worsening. Creatinine today 1.4, baseline seems to be 0.8-0.9. Will hols diuretics and start on Iv fluids. Monitor BUN/creatinine, strict I's and O's (12) HCAP (healthcare-associated pneumonia) ICD Code: J18.9 Status: Acute Plan: Antibiotics as above. CTA chest ordered and pending. (13) S/P AVR ICD Code: Z95.2 Status: Chronic Plan: Check 2-D echocardiogram. Mechanical aVR 13 years ago. (14) Anasarca ICD Code: R60.1 Status: Acute Plan: Follow-up strict input and output. Patient is oliguric today - will hold diuretics. (15) Acute hypoxemic respiratory failure ICD Code: J96.01 Status: Acute Plan: Likely due to PNA and HCAP. Patient on ventimask 09/03 down to 4 liters nasal canula. VQ scan low probability for PE. (16) Lower extremity pain, bilateral ICD Code: M79.604 Status: Acute Plan: Bilateral lower extremity pain on exam. DVT ruled out with bilat venous doppler. (17) Diabetes ICD Code: E11.9 Status: Acute Plan: Continue to hold metformin. Blood sugars seem to be stable. Continue SSI with insulin novolog, continue to monitor accuchecks. Assessment and Plan GI prophylaxis - continue protonix drip dvt prophylaxis - SCD's Discharge Planning Continue to monitor in the intensive care unit. 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
--- NOTE | 2016-09-04 16:10 | RADRPT ---
EXAM DATE/TIME: 09/04/2016 15:22 [facility] COMPARISON: No previous studies available for comparison. INDICATIONS : Altered mental status. RADIATION DOSE: 65.23 CTDIvol (mGy) MEDICAL HISTORY : Hypertension. Carcinoma, breast. SURGICAL HISTORY : Appendectomy. ENCOUNTER: Initial ACUITY: 1 day PAIN SCALE: Non-responsive LOCATION: cranial TECHNIQUE: Multiple contiguous axial images were obtained of the head. Using automated exposure control and adj ustment of the mA and/or kV according to patient size, radiation dose was kept as low as reasonably a chievable to obtain optimal diagnostic quality images. FINDINGS: CEREBRUM: The ventricles are normal for age. There is bilateral cortical atrophy. There appears to be a possibl e mass high along the right posterior cerebral vertex measuring 1.3 cm round by edema. There are some calcifications also seen high along the right cerebral vertex. No significant mass effect or midline shift is demonstrated.. POSTERIOR FOSSA: The cerebellum and brainstem are intact. The 4th ventricle is midline. The cerebellopontine angle i s unremarkable. EXTRACRANIAL: The visualized portion of the orbits is intact. Chronic sinus disease in the sphenoid sinuses. SKULL: The calvaria is intact. No evidence of skull fracture. CONCLUSION: 1. There appears to be an intracranial mass measuring 1.3 cm surrounded by vasogenic edema high along the right cerebral vertex. In a patient with a previous history of breast cancer, metastatic disease is the primary consideration. Recommend MRI of the brain with and without contrast further evaluatio naty Gibson MD on September 04, 2016 at 16:04 Board Certified Radiologist. This report was verified electronically.
--- NOTE | 2016-09-04 16:43 | PD.CONS ---
History of Present Illness Service Infectious disease Consult Requested By Dr Luna Reason for Consult Evaluate patient with UTI, sepsis, HCAP, mental status change Primary Care Physician Unknown Diagnoses: History of Present Illness Patient seen and examined. Records reviewed. Patient is a 70-year-old female, [facility] after she had coffee ground emesis, and hypoxemia. Patient was initially at [facility] with an acute GI bleed back in July 2016. She had a very high pro-time, and she had been on Coumadin for her atrial fibrillation and aVR. GI workup at that time did not reveal any active source of bleeding. 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 She was started on anticoagulation, and had hemorrhagic conversion of her stroke. She underwent CTA and finding showed suggestion of mycotic aneurysm. She apparently developed sepsis at that time and required pressors for shock, she was intubated. She was subsequently transferred to the [facility] on August 12, and underwent coiling. 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 RADHA however did not show any vegetation in any of her valves. She subsequently improved and got extubated. She was transferred to [facility] for comprehensive rehabilitation on August 28, 2016. Infectious disease recommendation at that time is for her to complete Rocephin and rifampin September. While at [place], she was doing rehabilitation. She's had some problem with lethargy. On the day of admission she apparently had nausea and vomiting and had some abdominal pain and some chest pain. She had coffee ground emesis. Her O2 saturation at that time was in the 70s, and she appeared dyspneic. She was therefore admitted to the [facility] for closer monitoring and further evaluation and treatment. While at [place] she had 2 units of packed RBC that was transfused. Her hemoglobin was staying around 10, and on the day of admission it was down to 8. She's had some low-grade temps. According to the nurse she's been very lethargic this morning. Patient just came back from the radiology department for she had thoracenteses as well as CT of the head. Patient currently is on nasal O2. She is not on any pressors. Monitor shows atrial fibrillation. CT of the abdomen and pelvis showed possible ileus, and she had evidence of bilateral pleural effusion and consolidation. She also had a urinalysis which showed some pyuria. Patient's urine output has been low, and her creatinine had gone up to 1.44. It was 0.8 previously. Infectious disease consultation has been requested to evaluate patient with multiple problems including sepsis, UTI, possible pneumonia. Review of Systems ROS Limitations: Clinical Condition, Altered Mental Status Past Family Social History Allergies: Coded Allergies: Codeine (Verified Allergy, Unknown, 08/27/16) Haldol (Verified Allergy, Unknown, 08/27/16) Past Medical History Recent fall with resultant L1 compression fracture Colon cancer status post partial ascending colon resection with subsequent chronic diarrhea Breast cancer status post mastectomy Status post MVR in 2005 Hypertension Dyslipidemia CHF Paroxysmal insufflation Mycotic aneurysm status post coiling HCAP requiring intubation History of septic shock during recent hospitalization MSSA bacteremia thought to be related to late onset prostatic valve endocarditis but with negative RADHA 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 Past Surgical History Status post aVR in 2005 Appendectomy Breast cancer status post mastectomy Colon cancer status post partial colon resection Active Ordered Medications Insulin Protonix Zosyn Rifampin Sodium bicarbonate Vanco Social History Patient admits to previous history of tobacco use. Denies any alcohol consumption or illicit drug use. Physical Exam Vital Signs Vital Signs Date Time Temp Pulse Resp B/P Pulse Ox O2 Delivery O2 Flow Rate FiO2 09/04/16 14:00 83 09/04/16 13:05 Nasal Cannula 4.00 09/04/16 13:00 81 09/04/16 13:00 81 19 96/46 98 09/04/16 12:00 83 09/04/16 12:00 99.7 83 17 98/48 96 09/04/16 11:01 84 09/04/16 11:01 84 17 104/47 96 09/04/16 11:00 83 09/04/16 11:00 83 17 95 09/04/16 10:00 84 09/04/16 10:00 84 18 122/58 95 09/04/16 09:00 81 09/04/16 09:00 81 32 122/58 97 09/04/16 08:00 79 09/04/16 08:00 100.3 79 18 117/52 97 09/04/16 06:00 81 09/04/16 04:00 84 09/04/16 04:00 99.8 84 36 96/49 96 09/04/16 02:00 84 09/04/16 00:00 84 09/04/16 00:00 99.3 84 17 106/51 97 09/03/16 22:00 88 09/03/16 20:00 90 09/03/16 20:00 99.0 90 17 136/63 98 09/03/16 19:37 94 Nasal Cannula 5.00 09/03/16 18:00 90 Physical Exam GENERAL: Patient is an obese, well-developed patient, awake and alert, not in respiratory distress. SKIN: Warm and dry. No generalized rash, no ecchymoses and no evidence of embolic lesions. HEAD: Atraumatic. Normocephalic. No temporal wasting, or tenderness. EYES: [place] conjunctiva. Has scleral hemorrhage on R, and has scleral edema. Pupils equal, round and reactive to light. Extraocular movements full and intact. EARS, NOSE AND THROAT: Nose without bleeding or purulent nasal discharge. No sinus tenderness. Very dry oral mucosa. NECK: Trachea midline. Supple and not tender, no meningeal signs CARDIOVASCULAR: Irregular rate and rhythm. No rubs heard. Harsh systolic murmur at base of the heart RESPIRATORY: Coarse breath sounds bilaterally. No rales, wheezing or rhonchi. Decreased at bases ABDOMEN: Globular and distended, has a large incisional/ventral hernia, has diffuse tenderness, no guarding or rebound, bowel sounds present and hypoactive. EXTREMITIES: No clubbing, cyanosis. Both feet cool to touch, no mottling. , Skin tight both LE. No calf tenderness. NEUROLOGICAL: Answered my questions, no facial asymmetry. Equal hand surveillance agent, moves toes, no Babinski. PSYCHIATRIC: Awakens and answered my questions and cooperative. LINE: No evidence of infection : Ruiz in place, mow UO, clear yellow urine Laboratory Laboratory Tests Test 09/03/16 09/03/16 09/03/16 09/04/16 19:55 20:40 21:20 04:00 B-Type Natriuretic Peptide 958 Urine Color DARK-YELLOW Urine Turbidity HAZY Urine pH 5.0 Urine Specific [place] 1.024 Urine Protein 30 Urine Glucose (UA) NEG Urine Ketones TRACE Urine Occult Blood NEG Urine Nitrite NEG Urine Bilirubin NEG Urine Urobilinogen LESS THAN 2.0 Urine Leukocyte Esterase SMALL Urine RBC 10 Urine WBC 22 Urine Squamous Epithelial <1 Cells Urine Bacteria MOD Urine Mucus FEW Urine Yeast (Budding) MOD Microscopic Urinalysis Comment CATH-CULTURE IND Troponin I 0.06 White Blood Count 9.4 Red Blood Count 2.83 Hemoglobin 8.5 Hematocrit 25.6 Mean Corpuscular Volume 90.7 Mean Corpuscular Hemoglobin 29.9 Mean Corpuscular Hemoglobin 33.0 Concent Red Cell Distribution Width 21.2 Platelet Count 166 Mean Platelet Volume 8.1 Neutrophils (%) (Auto) 78.3 Lymphocytes (%) (Auto) 11.0 Monocytes (%) (Auto) 8.2 Eosinophils (%) (Auto) 1.9 Basophils (%) (Auto) 0.6 Neutrophils # (Auto) 7.4 Lymphocytes # (Auto) 1.0 Monocytes # (Auto) 0.8 Eosinophils # (Auto) 0.2 Basophils # (Auto) 0.1 CBC Comment DIFF FINAL Differential Comment Test 09/04/16 09/04/16 09/04/16 05:50 11:30 12:33 Troponin I 0.06 Sodium Level 134 Potassium Level 5.3 Chloride Level 104 Carbon Dioxide Level 19.8 Anion Gap 10 Blood Urea Nitrogen 32 Creatinine 1.44 Estimat Glomerular Filtration 36 Rate Random Glucose 123 Lactic Acid Level 1.2 Calcium Level 7.6 Total Bilirubin 1.0 Aspartate Amino Transf 23 (AST/SGOT) Alanine Aminotransferase 11 (ALT/SGPT) Alkaline Phosphatase 202 Total Protein 5.2 Albumin 1.7 Blood Gas Puncture Site LT RADIAL Blood Gas Patient Temperature 98.6 Blood Gas HCO3 17 Blood Gas Base Excess -8.8 Blood Gas Oxygen Saturation 91 Arterial Blood pH 7.28 Arterial Blood Partial 37 Pressure CO2 Arterial Blood Partial 74 Pressure O2 Arterial Blood Oxygen Content 11.0 Arterial Blood 2.9 Carboxyhemoglobin Arterial Blood Methemoglobin 1.1 Blood Gas Hemoglobin 8.5 Oxygen Delivery Device NASAL CANNULA Blood Gas Liter Flow 4 Date/Time Procedure Status Source Growth 09/04/16 11:57 Aerobic Blood Culture Received Blood Peripheral Pending 09/04/16 11:57 Anaerobic Blood Culture Received Blood Peripheral Pending 09/04/16 05:50 MRSA Surveillance Culture Received Nasopharyngeal Pending 09/03/16 20:40 Urine Culture - Preliminary Resulted Urine Catheterized Urine IMMATURE GROWTH - REINCUBATE Result Diagram: 09/04/16 0400 09/04/16 1130 Imaging RADIOLOGY STUDIES/FILMS REVIEWED Lower Extremity Ultrasound 09/04/16 0000 Signed Impressions: Service Date/Time: Sunday, September 04, 2016 09:34 - CONCLUSION: No evidence of DVT. Rohith Gibson MD Lung Scan-VQ Nuclear Medicine 09/03/16 0000 Signed Impressions: Service Date/Time: Saturday, September 03, 2016 22:02 - CONCLUSION: Low probability for pulmonary embolism. Mikel Ross MD Assessment and Plan Assessment and Plan IMPRESSION Sepsis, source? - has UTI - ?new PNA, ?aspiration - on Rx for MSSA sepsis, and presumed PVE, AVR, RADHA negative - has ileus Recurrent GIB CVA, S/P coiling of aneurysm Chronic atrial fib S/P AVR 2006 Renal insufficiency, ?due to sepsis RECOMMENDATION Continue Vanco Contnue Zosyn Add Diflucan Follow C/S Monitor progress I will determine course of Rx once work-up completed I will follow along with you Thank you for this consultation Discussed Condition With D/W Mary Kelley MD September 04, 2016 16:43
--- NOTE | 2016-09-04 16:54 | HHI.GIFU ---
Subjective Remarks Pt not alert today. Per RN no hematemesis. Pt has been disoriented and lethargic all day. No BM, no urine output all day. From Consult 09-03-16 This is a 70 year old [lady] who began having coffeeground emesis 3 days ago and pos hemoccult. She says she has had this before but "not this bad". she is unable to elaborate further. She admits abdominal pain, cannot qualify further. Her last BM was 2 d ago and it is not known if it was tarry or had red blood. She says she had EGD/colonoscopy last week, per EMR that was done at [place] [facility] 07/28 and no source of bleeding was found, pt was also found to have supratherapeutic INR. Denies frequent NSAID use. Denies heavy drinking. pt is poor historian. (Shanthi Mckoy) Objective Vitals I&O Vital Signs Date Time Temp Pulse Resp B/P Pulse Ox O2 Delivery O2 Flow Rate FiO2 09/04/16 14:00 83 09/04/16 13:05 Nasal Cannula 4.00 09/04/16 13:00 81 09/04/16 13:00 81 19 96/46 98 09/04/16 12:00 83 09/04/16 12:00 99.7 83 17 98/48 96 09/04/16 11:01 84 09/04/16 11:01 84 17 104/47 96 09/04/16 11:00 83 09/04/16 11:00 83 17 95 09/04/16 10:00 84 09/04/16 10:00 84 18 122/58 95 09/04/16 09:00 81 09/04/16 09:00 81 32 122/58 97 09/04/16 08:00 79 09/04/16 08:00 100.3 79 18 117/52 97 09/04/16 06:00 81 09/04/16 04:00 84 09/04/16 04:00 99.8 84 36 96/49 96 09/04/16 02:00 84 09/04/16 00:00 84 09/04/16 00:00 99.3 84 17 106/51 97 09/03/16 22:00 88 09/03/16 20:00 90 09/03/16 20:00 99.0 90 17 136/63 98 09/03/16 19:37 94 Nasal Cannula 5.00 09/03/16 18:00 90 I/O 09/03/16 09/03/16 09/03/16 09/04/16 09/04/16 09/04/16 07:00 15:00 23:00 07:00 15:00 23:00 Intake Total 644 ml 284 ml 902 ml Output Total 225 ml 75 ml 10 ml Balance 419 ml 209 ml 892 ml Intake Oral 0 ml 0 ml 0 ml IV Total 644 ml 284 ml 902 ml Output Urine Total 225 ml 75 ml 10 ml # Bowel Movements 0 0 0 Laboratory Laboratory Tests Test 09/03/16 09/03/16 09/03/16 09/04/16 19:55 20:40 21:20 04:00 B-Type Natriuretic Peptide 958 Urine Color DARK-YELLOW Urine Turbidity HAZY Urine pH 5.0 Urine Specific [place] 1.024 Urine Protein 30 Urine Glucose (UA) NEG Urine Ketones TRACE Urine Occult Blood NEG Urine Nitrite NEG Urine Bilirubin NEG Urine Urobilinogen LESS THAN 2.0 Urine Leukocyte Esterase SMALL Urine RBC 10 Urine WBC 22 Urine Squamous Epithelial <1 Cells Urine Bacteria MOD Urine Mucus FEW Urine Yeast (Budding) MOD Microscopic Urinalysis Comment CATH-CULTURE IND Troponin I 0.06 White Blood Count 9.4 Red Blood Count 2.83 Hemoglobin 8.5 Hematocrit 25.6 Mean Corpuscular Volume 90.7 Mean Corpuscular Hemoglobin 29.9 Mean Corpuscular Hemoglobin 33.0 Concent Red Cell Distribution Width 21.2 Platelet Count 166 Mean Platelet Volume 8.1 Neutrophils (%) (Auto) 78.3 Lymphocytes (%) (Auto) 11.0 Monocytes (%) (Auto) 8.2 Eosinophils (%) (Auto) 1.9 Basophils (%) (Auto) 0.6 Neutrophils # (Auto) 7.4 Lymphocytes # (Auto) 1.0 Monocytes # (Auto) 0.8 Eosinophils # (Auto) 0.2 Basophils # (Auto) 0.1 CBC Comment DIFF FINAL Differential Comment Test 09/04/16 09/04/16 09/04/16 05:50 11:30 12:33 Troponin I 0.06 Sodium Level 134 Potassium Level 5.3 Chloride Level 104 Carbon Dioxide Level 19.8 Anion Gap 10 Blood Urea Nitrogen 32 Creatinine 1.44 Estimat Glomerular Filtration 36 Rate Random Glucose 123 Lactic Acid Level 1.2 Calcium Level 7.6 Total Bilirubin 1.0 Aspartate Amino Transf 23 (AST/SGOT) Alanine Aminotransferase 11 (ALT/SGPT) Alkaline Phosphatase 202 Total Protein 5.2 Albumin 1.7 Blood Gas Puncture Site LT RADIAL Blood Gas Patient Temperature 98.6 Blood Gas HCO3 17 Blood Gas Base Excess -8.8 Blood Gas Oxygen Saturation 91 Arterial Blood pH 7.28 Arterial Blood Partial 37 Pressure CO2 Arterial Blood Partial 74 Pressure O2 Arterial Blood Oxygen Content 11.0 Arterial Blood 2.9 Carboxyhemoglobin Arterial Blood Methemoglobin 1.1 Blood Gas Hemoglobin 8.5 Oxygen Delivery Device NASAL CANNULA Blood Gas Liter Flow 4 Date/Time Procedure Status Source Growth 09/04/16 16:00 Gram Stain Received Fluid Pleural Fluid Pending 09/04/16 16:00 Body Fluid Culture Received Fluid Pleural Fluid Pending 09/04/16 11:57 Aerobic Blood Culture Received Blood Peripheral Pending 09/04/16 11:57 Anaerobic Blood Culture Received Blood Peripheral Pending 09/04/16 05:50 MRSA Surveillance Culture Received Nasopharyngeal Pending 09/03/16 20:40 Urine Culture - Preliminary Resulted Urine Catheterized Urine IMMATURE GROWTH - REINCUBATE Imaging Last Impressions Lower Extremity Ultrasound 09/04/16 0000 Signed Impressions: Service Date/Time: Sunday, September 04, 2016 09:34 - CONCLUSION: No evidence of DVT. Rohith Gibson MD Head CT 09/04/16 0000 Signed Impressions: Service Date/Time: Sunday, September 04, 2016 15:22 - CONCLUSION: 1. There appears to be an intracranial mass measuring 1.3 cm surrounded by vasogenic edema high along the right cerebral vertex. In a patient with a previous history of breast cancer, metastatic disease is the primary consideration. Recommend MRI of the brain with and without contrast further evaluation. Rohith Gibson MD Lung Scan- Nuclear Medicine 09/03/16 0000 Signed Impressions: Service Date/Time: Saturday, September 03, 2016 22:02 - CONCLUSION: Low probability for pulmonary embolism. Mikel Ross MD Physical Exam HEENT: right eye with blood in sclera; normocephalic; atraumatic; no jaundice. CHEST: rhonchi CARDIAC: Regular rate and rhythm with click ABDOMEN: Soft, distended, extreme TTP diffusely; no hepatosplenomegaly; bowel sounds hypoactive in all four quadrants. EXTREMITIES: No clubbing, cyanosis, + pitting edema BUE BLE. SKIN: Normal; no rash; no jaundice. PROJECT MANAGER/DESIGN MANAGER: lethargic. (Shanthi Mckoy) Assessment and Plan Plan ASSESSMENT - abdominal pain - on exam, pt unable to contribute history ? ileus CT 09-03-16 --> relatively diffuse distention small bowel and colon, poss representing ileus. there are few decompressed segments of small bowel but no clear pattern is present to indicate small bowel obstruction, small volume free fluid abd and pelvis KUB 09-03-16 --> abnormal bowel gas pattern with mild diffuse distentio of small bowel and colon, no transition point appreciated suggesting ileus as potential cause - hematemesis - none currently. Started 3 days ago for 2d, with coffee ground appearance. pos hemoccult. HH 8.5, 25.6 Has hx GIB and had EGD/colonoscopy last month? and no source bleeding found per EMR. - abnormal CT head- intracranial mass PLAN - SSE x 2 - EGD when stable - continue protonix - monitor HH - transfuse if necessary - supportive care - further recommendations to follow results above This pt seen by myself and Dr Eduardo and this note is written on his behalf. ( Shanthi Mckoy) Physician Comments Seen and examined with brenda Maki as above. (Ingrid Eduardo MD) Shanthi Mckoy September 04, 2016 16:54 Ingrid Eduardo MD September 05, 2016 06:56
[2016-09-04 16:57] LABS: HDL CHOLESTEROL 15.9 MG/DL (40.0-60.0)
--- NOTE | 2016-09-04 17:15 | RADRPT ---
EXAM DATE/TIME: 09/04/2016 15:34 INDICATIONS : Pleural effusion. DEVICE(S): 1.) 6 Fr [id number] FLUID: Total volume of 600 cc of clear, yellow fluid was removed. Fluid was sent for laboratory ordered studies. MEDICAL HISTORY : Carcinoma, breast. Hypertension. SURGICAL HISTORY : Appendectomy. ENCOUNTER: Initial ACUITY: 1 day PAIN SCORE: Non-responsive LOCATION: chest PROCEDURE: 1. CT guided right thoracentesis. The site was prepped in sterile fashion. Full sterile technique was used, including cap, mask, steri le gloves and gown and a large sterile sheet. Hand hygiene and 2% chlorhexidine and/or betadine/alco hol prep was utilized per protocol for cutaneous antisepsis. The skin and subcutaneous tissues were infiltrated with local anesthetic solution. Using automated exposure control and adjustment of the mA and/or kV according to patient size, radiation dose was kept as low as reasonably achievable to obta in optimal diagnostic quality images. With the patient oblique on the CT table, steam finisher images were obtained through the chest demonstrating the right sided pleural effusion. Dermatotomy was made and the prescribed catheter was advanced into the pleural fluid. The pleural fluid as above was removed from the hemithorax. Post procedural sca n demonstrated near complete resolution of the right pleural fluid with no pneumothorax. There is res piratory motion artifact on the post procedure imaging but there is some mild patchy consolidation bi laterally as well as mild atelectasis in both lower lobes. No pneumothorax is present. There is a lef t upper extremity PICC present. Patient is post median sternotomy and aortic valve replacement. [facility] aorta is aneurysmal measuring up to 4.8 cm. There is a small left pleural effusion. The patient tolerated the procedure well and there were no complications. EKG and oximetry remained s table throughout the procedure. The patient was sent to recovery in stable condition. CONCLUSION: 1. Uncomplicated right thoracentesis with removal of 600 mL of clear yellow fluid. There is only a mi nimal amount of right pleural fluid remaining. 2. Small left pleural effusion. There is also bilateral lower lobe atelectasis and patchy consolidati on in the lungs bilaterally. Julian Lua MD on September 04, 2016 at 17:09 Board Certified Radiologist. This report was verified electronically.
--- NOTE | 2016-09-04 17:57 | EC ---
Study Study Date:09/04/2016 STUDY CONCLUSIONS SUMMARY - Left ventricle: The cavity size was normal. Wall thickness was increased in a pattern of mild LVH. There was concentric hypertrophy. Systolic function was normal. The estimated ejection fraction was in the range of 55% to 60%. Although no diagnostic regional wall motion abnormality was identified, this possibility cannot be completely excluded on the basis of this study. - Aortic valve: A bileaflet prosthesis was present. Overall no real aortic regurgitation is noted. Gradient is mildly elevated, which depending on the size of the overall valve placed may be mild aortic stenosis at the most. Valve area: 1.4cm^2(VTI). Valve area: 1.39cm^2 (Vmax). - Right ventricle: The cavity size was mildly dilated. - Tricuspid valve: Moderate regurgitation. - Pulmonary arteries: PA peak pressure: 64mm Hg (S). If LV function is below 40, please consider prescribing an ACEI or ARB or document rationale for non-use. PROCEDURE DATA STUDY STATUS: Elective. Procedure: Transthoracic echocardiography. Image quality was good. Scanning was performed from the parasternal, apical, and subcostal acoustic windows. Study completion: The patient tolerated the procedure well. Transthoracic echocardiography. M-mode, complete 2D, complete spectral Doppler, and color Doppler. Patient status: Inpatient. CARDIAC ANATOMY LEFT VENTRICLE: The cavity size was normal. Wall thickness was increased in a pattern of mild LVH. There was concentric hypertrophy. Systolic function was normal. The estimated ejection fraction was in the range of 55% to 60%. Although no diagnostic regional wall motion abnormality was identified, this possibility cannot be completely excluded on the basis of this study. AORTIC VALVE: A bileaflet prosthesis was present. Overall no real aortic regurgitation is noted. Gradient is mildly elevated, which depending on the size of the overall valve placed may be mild aortic stenosis at the most. Doppler: Valve area: 1.4cm^2(VTI). Valve area: 1.39cm^2 (Vmax). Mean gradient: 17mm Hg (S). Peak gradient: 30mm Hg (S). MITRAL VALVE: The valve appears to be grossly normal. No evidence of vegetation. Doppler: There was no evidence for stenosis. Trace regurgitation. LEFT ATRIUM: The atrium was normal in size. RIGHT VENTRICLE: The cavity size was mildly dilated. PULMONIC VALVE: Not visualized. Doppler: There was no evidence for stenosis. No significant regurgitation. TRICUSPID VALVE: The valve appears to be grossly normal. Doppler: There was no evidence for stenosis. Moderate regurgitation. PERICARDIUM: There was no pericardial effusion. BASIC MEASUREMENTS ADULT Normal Left ventricle LV internal dimension, ED, chordal level, *55.3 mm 43-52 PLAX LV internal dimension, ES, chordal level, *43 mm 23-38 PLAX Fractional shortening, chordal level, PLAX *22 % >29 LV posterior wall thickness, ED 12 mm IVS/LVPW ratio, ED *1.33 <1.3 Ventricular septum Septal thickness, ED 16 mm Right ventricle RV internal dimension, ED, PLAX 30.9 mm 19-38 BASIC MEASUREMENTS ADULT Normal Aorta Root diameter, ED *38 mm 20-37 Left atrium Anterior-posterior dimension, ES 34 mm 19-40 LA/aortic root ratio 0.89 DOPPLER MEASUREMENTS ADULT Normal Main pulmonary artery Pressure, S *64 mm Hg =30 Aortic valve Peak velocity, S 274 cm/s Mean velocity, S 192 cm/s VTI, S 52.3 cm Mean gradient, S 17 mm Hg Peak gradient, S 30 mm Hg Valve area, VTI 1.4 cm^2 Valve area, Vmax 1.39 cm^2 Tricuspid valve Regurgitant peak velocity 354 cm/s Peak RV-RA gradient, S 50 mm Hg Maximal regurgitant velocity 354 cm/s Systemic veins Estimated CVP 10 mm Hg Right ventricle RV pressure, S *64 mm Hg <30 LEGEND: Mean values are shown as u=mean value. Asterisk (*) farmer values outside specified normal range. Prepared and signed by Jacky Reyes [id number]
[2016-09-04] MEDS: DEXAMETHASONE SOD PHOS 4 MG/ML VIAL IV PUSH SCH (18:13)
[2016-09-04 18:19] LABS: PLEURAL FLUID LYMPHS 6 %
[2016-09-04] MEDS: SODIUM BICARBONATE 8.4% INJ 150 MEQ in DEXTROSE 5% IN WATE 1000ML INJ 1,000 ML IV SCH ×2 (18:41)
--- NOTE | 2016-09-04 18:52 | PD.CONS ---
[facility] Service Neurosurgery Consult Requested By Dr Ellsworth Reason for Consult Intracranial mass Primary Care Physician Unknown History of Present Illness This is a 70 year old female with past medical history of PAFIB, HTN, CHF, S/P AVR 2006, Breast cancer s/p mastectomy, colon cancer s/p partial ascending colon resection with resultant chronic diarrhea who was admitted to [facility] on 07/28/16 with GI bleeding from rectum and was found to be supratherapeutic with INR 5.8 (was on Coumadin). Her hemoglobin dropped and she underwent an EGD and colonoscopy for further evaluation but no clear source of bleeding was identified. She was started on PPI. On 08/06/16, she complained of diplopia and CT of the brain showed a right frontal ischemic CVA . She was anticoagulated with heparin and became supratherapeutic with PTT > 100. She again developed neurological changes and CT showed conversion to hemorrhagic CVA. CTA suspicious for mycotic aneurysm. She became septic with temp 104 and required intubation and shakila drip. She was transferred to [facility] on 08/12/16 and underwent coiling of the aneurysm. 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 However, RADHA did not show this. She developed respiratory failure and required intubation and mechanical ventilation. She has history of metastatic breast CA and has undergone a mastectomy. CT showed a reported mass. Neurosurgical consultation was requested Review of Systems Constitutional: DENIES: Diaphoretic episodes, Fatigue, Fever, Weight gain, Weight loss, Chills, Dizziness, Change in appetite, Night Sweats Endocrine: DENIES: Abnorml menstrual pattern, Heat/cold intolerance, Polydipsia , Polyuria, Polyphagia Eyes: COMPLAINS OF: Blurred vision, DENIES: Diplopia, Eye inflammation, Eye pain, Vision loss, Photosensitivity, Double Vision Ears, nose, mouth, throat: DENIES: Tinnitus, Hearing loss, Vertigo, Nasal discharge, Oral lesions, Throat pain, Hoarseness, Ear Pain, Running Nose, Epistaxis, Sinus Pain, Toothache, Odynophagia Respiratory: DENIES: Apneas, Cough, Snoring, Wheezing, Hemoptysis, Sputum production, Shortness of breath Cardiovascular: DENIES: Chest pain, Palpitations, Syncope, Dyspnea on Exertion , PND, Lower Extremity Edema, Orthopnea, Claudication Gastrointestinal: DENIES: Abdominal pain, Black stools, Bloody stools, Constipation, Diarrhea, Nausea, Vomiting, Difficulty Swallowing, Anorexia Genitourinary: DENIES: Abnormal vaginal bleeding, Dysmenorrhea, Dyspareunia, Sexual dysfunction, Urinary frequency, Urinary incontinence, Urgency, Hematuria , Dysuria, Nocturia, Vaginal discharge Musculoskeletal: DENIES: Joint pain, Muscle aches, Stiffness, Joint Swelling, Back pain, Neck pain Integumentary: DENIES: Abnormal pigmentation, Pruritus, Rash, Nail changes, Breast masses, Breast skin changes, Nipple discharge Hematologic/lymphatic: DENIES: Bruising, Lymphadenopathy Immunologic/allergic: DENIES: Eczema, Urticaria Past Family Social History Allergies: Coded Allergies: Codeine (Verified Allergy, Unknown, 08/27/16) Haldol (Verified Allergy, Unknown, 08/27/16) Past Medical History Recent GI bleed status post EGD and colonoscopy without a clear source of bleeding Right frontal ischemic CVA with conversion to hemorrhagic CVA following anticoagulation with Heparin MSSA bacteremia thought to be related to late onset prosthetic valve endocarditis but with negative RADHA H/O Septic shock during recent hospitalization HCAP requiring intubation Mycotic Aneurysm s/p coiling Paroxysmal atrial fibrillation CHF Hypertension Dyslipidemia Status post MAVR 2006 Breast cancer status post mastectomy Colon cancer status post partial ascending colon resection with subsequent chronic diarrhea L1 compression fracture Past Surgical History s/p AVR 2006 Appendectomy Breast cancer s/p mastectomy colon cancer s/p partial ascending colon resection Reported Medications Acetaminophen (Tylenol) 650 mg Q4H PRN PO; Start 08/27/16 at 16:15 Ascorbic Acid (Vitamin C) 1,000 mg DAILY PO; Start 08/28/16 at 09:00 Atorvastatin Calcium (Lipitor) 80 mg HS PO; Start 08/27/16 at 21:00 Ceftriaxone Sodium/Sodium Chloride (Rocephin Inj/NS Inj) 100 ml @ 200 mls/hr Q12H IV; Start 08/27/16 at 20:00; Stop 09/29/16 at 23:55 Cyanocobalamin (Vitamin B12) 1,000 mcg DAILY PO; Start 08/28/16 at 09:00 Dextrose (D50w (Vial) Inj) 50 ml UNSCH PRN IV; Start 08/27/16 at 16:15 Docusate Sodium (Colace) 100 mg BID PO; Start 08/27/16 at 21:00 Gabapentin (Neurontin) 600 mg HS PO; Start 08/27/16 at 21:00 Glucagon (Glucagon Inj) 1 mg UNSCH PRN OTHER; Start 08/27/16 at 16:15 Heparin Sodium (Porcine) (Heparin Central Flush) DAILY IV FLUSH; Start at 09:00 Heparin Sodium (Porcine) (Heparin Central Flush) UNSCH PRN IV FLUSH; Start at 16:15 Insulin Detemir (Levemir Inj) 10 units HS SQ; Start 08/27/16 at 21:00 Lisinopril (Prinivil) 2.5 mg HS PO; Start 08/27/16 at 21:00 Magnesium Hydroxide (Milk Of Magnesia Liq) 30 ml DAILY PRN PO; Start 08/27/16 at 16:15 Magnesium Oxide (Mag-Ox) 400 mg DAILY PO; Start 08/28/16 at 09:00 Metformin HCl (Glucophage) 1,000 mg BIDPC PO; Start 08/27/16 at 18:00 Miscellaneous (Pill Splitter) 1 ea UNSCH PRN OTHER; Start 08/27/16 at 16:30 Multivitamins (Theragran) 1 tab DAILY PO; Start 08/28/16 at 09:00 Oxycodone HCl (Roxicodone) 5 mg Q4H PRN PO; Start 08/27/16 at 16:15 Oxycodone HCl 10 mg 10 mg Q4H PRN PO; Start 08/27/16 at 16:15 Pantoprazole Sodium (Protonix) 40 mg Q12HR PO; Start 08/27/16 at 21:00 Rifampin (Rifampin) 300 mg Q12HR PO; Start 08/27/16 at 21:00; Stop 09/29/16 at 23:55 Active Ordered Medications Current Medications Pantoprazole Sodium 80 mg/ Sodium Chloride 100 ml @ 10 mls/hr Q10H IV Last administered on 09/04/16t 12:15; Start 09/03/16 at 16:00 Sodium Bicarbonate 150 meq/Dextrose 1,150 ml @ 42 mls/hr Q24H IV Last administered on 09/04/16 18:41; Start 09/03/16 at 17:00 Ceftriaxone Sodium 2000 mg/ Sodium Chloride 100 ml @ 200 mls/hr Q12H IV Last administered on 09/04/16 06:11; Start 09/03/16 at 16:00; Status Hold Rifampin/Sodium Chloride (Rifampin Inj/NS Inj) 100 ml @ 100 mls/hr Q12H IV Last administered on 09/04/16 18:10; Start 09/03/16 at 18:00 Bumetanide (Bumex Inj) 1 mg BID@09,18 IV PUSH Last administered on 09/04/16 08 :22; Start 09/03/16 at 18:00; Status Hold Metoprolol Tartrate (Lopressor) 12.5 mg Q12HR PO Last administered on 08:22; Start 09/03/16 at 21:00 Miscellaneous (Pill Splitter) 1 ea UNSCH PRN OTHER SEE LABEL COMMENTS; Start at 19:00 Dextrose (D50w (Vial) Inj) 50 ml UNSCH PRN IV HYPOGLYCEMIA-SEE COMMENTS; Start 09/03/16 at 19:30 Glucagon (Glucagon Inj) 1 mg UNSCH PRN OTHER HYPOGLYCEMIA-SEE COMMENTS; Start 09/03/16 at 19:30 Insulin Aspart (NovoLOG SUPPLEMENTAL SCALE) 1 ACHS SLIDING SCALE SQ ; Start at 21:00 Morphine Sulfate 2 mg 2 mg ONCE ONCE IV PUSH Last administered on 09/03/16 21 :19; Start 09/03/16 at 21:15; Stop 09/03/16 at 21:16; Status DC Vancomycin HCl 1000 mg/Sodium Chloride 250 ml @ 250 mls/hr Q12H IV ; Start at 11:15; Status UNV Pharmacy Profile Note 0 ml @ 0 mls/hr UNSCH OTHER ; Start 09/04/16 at 11:15 Piperacillin Sod/ Tazobactam Sod 100 ml @ 200 mls/hr Q8H IV Last administered on 09/04/16 12:11; Start 09/04/16 at 12:00 Sodium Chloride 1,000 ml @ 100 mls/hr Q10H IV Last administered on 09/04/16 12:11; Start 09/04/16 at 12:00 Vancomycin HCl/ Sodium Chloride (Vancomycin Inj/ NS 500 ml Inj) 517.5 ml @ 250 mls/hr Q18H IV Last administered on 09/04/16 14:27; Start 09/04/16 at 14:00 Miscellaneous Information SPECIFIC LAB TO BE DRAWN:VANCOMYCIN TROUGH DATE TO... ONCE ONCE .XX ; Start 09/06/16 at 19:45; Stop 09/06/16 at 19:46 Sodium Chloride (NS 500 ml Inj) 500 ml @ 500 mls/hr BOLUS ONCE IV Last administered on 09/04/16 15:00; Start 09/04/16 at 15:00; Stop 09/04/16 at 15:59 ; Status DC Dexamethasone Sodium Phosphate (Decadron Inj) 4 mg Q6HR IV PUSH Last administered on 09/04/16 18:13; Start 09/04/16 at 18:00 Family History Father, HI/CVA Mother, CVA Social History Previous history of tobacco use. Denies any alcohol consumption or illicit drug use. Physical Exam Vital Signs Vital Signs Date Time Temp Pulse Resp B/P Pulse Ox O2 Delivery O2 Flow Rate FiO2 09/04/16 18:00 85 15 89/54 99 09/04/16 18:00 85 09/04/16 17:00 85 16 110/53 96 09/04/16 17:00 85 09/04/16 16:18 83 19 108/54 97 09/04/16 16:18 83 09/04/16 16:00 86 09/04/16 16:00 98.9 86 26 124/60 95 09/04/16 15:00 84 30 106/61 100 09/04/16 14:56 83 33 100/55 99 09/04/16 14:00 83 09/04/16 14:00 83 16 107/50 99 09/04/16 13:05 Nasal Cannula 4.00 09/04/16 13:00 81 09/04/16 13:00 81 19 96/46 98 09/04/16 12:00 83 09/04/16 12:00 99.7 83 17 98/48 96 09/04/16 11:01 84 09/04/16 11:01 84 17 104/47 96 09/04/16 11:00 83 09/04/16 11:00 83 17 95 09/04/16 10:00 84 09/04/16 10:00 84 18 122/58 95 09/04/16 09:00 81 09/04/16 09:00 81 32 122/58 97 09/04/16 08:00 79 09/04/16 08:00 100.3 79 18 117/52 97 09/04/16 06:00 81 09/04/16 04:00 84 09/04/16 04:00 99.8 84 36 96/49 96 09/04/16 02:00 84 09/04/16 00:00 84 09/04/16 00:00 99.3 84 17 106/51 97 09/03/16 22:00 88 09/03/16 20:00 90 09/03/16 20:00 99.0 90 17 136/63 98 09/03/16 19:37 94 Nasal Cannula 5.00 Physical Exam Ms. Patel is awake and oriented to time, place and person. Speech is fluent. Follows commands. Cranial nerve examination: pupils equal, round, and reactive to light. Extra- ocular movements are intact. Facial motor and sensory function are normal and symmetrical. Neck is soft and supple. Motor: moves all four extremities Sensory examination is intact to light touch in both the upper and lower extremities, symmetrically. Bilateral plantar flexion response. Laboratory Laboratory Tests Test 09/03/16 09/03/16 09/03/16 09/04/16 19:55 20:40 21:20 04:00 B-Type Natriuretic Peptide 958 Urine Color DARK-YELLOW Urine Turbidity HAZY Urine pH 5.0 Urine Specific [place] 1.024 Urine Protein 30 Urine Glucose (UA) NEG Urine Ketones TRACE Urine Occult Blood NEG Urine Nitrite NEG Urine Bilirubin NEG Urine Urobilinogen LESS THAN 2.0 Urine Leukocyte Esterase SMALL Urine RBC 10 Urine WBC 22 Urine Squamous Epithelial <1 Cells Urine Bacteria MOD Urine Mucus FEW Urine Yeast (Budding) MOD Microscopic Urinalysis Comment CATH-CULTURE IND Troponin I 0.06 White Blood Count 9.4 Red Blood Count 2.83 Hemoglobin 8.5 Hematocrit 25.6 Mean Corpuscular Volume 90.7 Mean Corpuscular Hemoglobin 29.9 Mean Corpuscular Hemoglobin 33.0 Concent Red Cell Distribution Width 21.2 Platelet Count 166 Mean Platelet Volume 8.1 Neutrophils (%) (Auto) 78.3 Lymphocytes (%) (Auto) 11.0 Monocytes (%) (Auto) 8.2 Eosinophils (%) (Auto) 1.9 Basophils (%) (Auto) 0.6 Neutrophils # (Auto) 7.4 Lymphocytes # (Auto) 1.0 Monocytes # (Auto) 0.8 Eosinophils # (Auto) 0.2 Basophils # (Auto) 0.1 CBC Comment DIFF FINAL Differential Comment Test 09/04/16 09/04/16 09/04/16 09/04/16 05:50 11:30 12:33 16:00 Troponin I 0.06 Sodium Level 134 Potassium Level 5.3 Chloride Level 104 Carbon Dioxide Level 19.8 Anion Gap 10 Blood Urea Nitrogen 32 Creatinine 1.44 Estimat Glomerular Filtration 36 Rate Random Glucose 123 Lactic Acid Level 1.2 Calcium Level 7.6 Total Bilirubin 1.0 Aspartate Amino Transf 23 (AST/SGOT) Alanine Aminotransferase 11 (ALT/SGPT) Alkaline Phosphatase 202 Total Protein 5.2 Albumin 1.7 Triglycerides Level 130 Cholesterol Level 68 LDL Cholesterol 26 HDL Cholesterol 15.9 Cholesterol/HDL Ratio 4.27 Blood Gas Puncture Site LT RADIAL Blood Gas Patient Temperature 98.6 Blood Gas HCO3 17 Blood Gas Base Excess -8.8 Blood Gas Oxygen Saturation 91 Arterial Blood pH 7.28 Arterial Blood Partial 37 Pressure CO2 Arterial Blood Partial 74 Pressure O2 Arterial Blood Oxygen Content 11.0 Arterial Blood 2.9 Carboxyhemoglobin Arterial Blood Methemoglobin 1.1 Blood Gas Hemoglobin 8.5 Oxygen Delivery Device NASAL CANNULA Blood Gas Liter Flow 4 Pleural Fluid pH 8.0 Pleural Fluid WBC 1265 Pleural Fluid RBC 0 Pleural Fluid Neutrophils 71 Pleural Fluid Lymphocytes 6 Pleural Fluid Monocytes 13 Pleural Fluid Histiocytes 5 Pleural Fluid Mesothelial 5 Cells Date/Time Procedure Status Source Growth 09/04/16 16:00 Gram Stain Received Fluid Pleural Fluid Pending 09/04/16 16:00 Body Fluid Culture Received Fluid Pleural Fluid Pending 09/04/16 11:57 Aerobic Blood Culture Received Blood Peripheral Pending 09/04/16 11:57 Anaerobic Blood Culture Received Blood Peripheral Pending 09/04/16 05:50 MRSA Surveillance Culture Received Nasopharyngeal Pending 09/03/16 20:40 Urine Culture - Preliminary Resulted Urine Catheterized Urine IMMATURE GROWTH - REINCUBATE Result Diagram: 09/04/16 0400 09/04/16 1130 Imaging Last Impressions Thoracentesis 09/04/16 1540 Signed Impressions: Service Date/Time: Sunday, September 04, 2016 15:34 - CONCLUSION: 1. Uncomplicated right thoracentesis with removal of 600 mL of clear yellow fluid. There is only a minimal amount of right pleural fluid remaining. 2. Small left pleural effusion. There is also bilateral lower lobe atelectasis and patchy consolidation in the lungs bilaterally. Julian Lua MD Lower Extremity Ultrasound 09/04/16 0000 Signed Impressions: Service Date/Time: Sunday, September 04, 2016 09:34 - CONCLUSION: No evidence of DVT. Rohith Gibson MD Head CT 09/04/16 0000 Signed Impressions: Service Date/Time: Sunday, September 04, 2016 15:22 - CONCLUSION: 1. There appears to be an intracranial mass measuring 1.3 cm surrounded by vasogenic edema high along the right cerebral vertex. In a patient with a previous history of breast cancer, metastatic disease is the primary consideration. Recommend MRI of the brain with and without contrast further evaluation. Rohith Gibson MD Lung Scan-V Nuclear Medicine 09/03/16 0000 Signed Impressions: Service Date/Time: Saturday, September 03, 2016 22:02 - CONCLUSION: Low probability for pulmonary embolism. Mikel Ross MD Assessment and Plan Assessment and Plan 70-year-old female with: Hematemesis Metabolic acidosis Bilateral pleural effusions PAFIB HTN CHF DM H/o Right frontal ischemic CVA with conversion to hemorrhagic CVA following heparin anticoagulation and supratherapeutic INR H/o Mycotic aneurysm s/p coiling H/o sepsis with MSSA bacteremia Attending Statement neuro checks in a serial fashion. Recommend MRI of the brain to rule out mets , She has history of metastatic breast Ca. . She is a very high risk surgical for any type of operation.. Cardiovascular: Diurese with Bumex. Right sided therapeutic S/P thoracentesis. 2 -D echo to further assess prosthetic aortic valve and LV EF. Cardiology consult as patient appears to be in CHF and has a mechanical aortic valve.. ID: Continue ceftriaxone and rifampin PT and OT evaluation Nutrition. diet Renal. monitor closely urine output, BUN and creatinine Endocrine. Monitor serial Acu checks and SSI as needed in detail ID monitor for signs of infection Protonix for stress ulcer prophylaxis Jai hose and SCD's for DVT prophylaxis Her family request transfer to [facility] to her neurosurgeon, which I agree Isaias Briceno MD September 04, 2016 18:51
[2016-09-04 19:49] LABS: HEMATOCRIT 25.6 % (35.0-46.0); MEAN CELL VOLUME 91.5 FL (80.0-100.0); MEAN CORPUSCULAR HEMOGLOBIN 29.4 PG (27.0-34.0); MEAN CORPUSCULAR HGB CONC 32.1 % (32.0-36.0); PLATELET COUNT 149 TH/MM3 (150-450); REVIEW FLAG FINAL; WHITE BLOOD COUNT 7.6 TH/MM3 (4.0-11.0)
[2016-09-04 20:16] LABS: BICARBONATE 18.4 MEQ/L (21.0-32.0); CALCIUM-PROTEIN CORRECTED 8.5 MG/DL (8.5-10.1); POTASSIUM 5.1 MEQ/L (3.5-5.1); TOTAL BILIRUBIN ADULT 1.1 MG/DL (0.2-1.0)
[2016-09-05] VITALS (12 sets, daily range): BP systolic 86–106; BP diastolic 45–52; PULSE 80–88; RESP 7–22; TEMP 97.3–98.9; O2SAT 95–100
[2016-09-05] MEDS: DEXAMETHASONE SOD PHOS 4 MG/ML VIAL IV PUSH SCH ×5 (00:25→23:13)
[2016-09-05] MEDS: PIPERACIL-TAZO 4.5 GM PREMIX 100 ML IV SCH ×3 (04:51→21:51)
[2016-09-05 04:57] LABS: AUTOMATED NEUTROPHIL # 4.8 TH/MM3 (1.8-7.7); BASOPHIL % 0.6 % (0.0-2.0); EOSINOPHIL % 0.1 % (0.0-4.0); HEMO FLAGS DIFF FINAL; LYMPH % 12.4 % (9.0-44.0); LYMPHOCYTE # 0.7 TH/MM3 (1.0-4.8); MEAN CELL VOLUME 92.8 FL (80.0-100.0); MEAN CORPUSCULAR HEMOGLOBIN 28.8 PG (27.0-34.0); MONO % 2.4 % (0.0-8.0); NEUT % 84.5 % (16.0-70.0); PLATELET COUNT 133 TH/MM3 (150-450); RED CELL DISTRIBUTION WIDTH 21.4 % (11.6-17.2); WHITE BLOOD COUNT 5.7 TH/MM3 (4.0-11.0)
[2016-09-05 05:37] LABS: CALCIUM-PROTEIN CORRECTED 8.6 MG/DL (8.5-10.1); MAGNESIUM 1.6 MG/DL (1.5-2.5); POTASSIUM 5.4 MEQ/L (3.5-5.1); TOTAL BILIRUBIN ADULT 0.9 MG/DL (0.2-1.0)
[2016-09-05] MEDS: RIFAMPIN INJ 300 MG in SODIUM CHLORIDE 0.9% INJ 100 ML IV SCH ×2 (06:00→19:38)
[2016-09-05] MEDS: INSULIN ASPART SUPPLEMENTAL SCALE SQ SCH ×4 (06:04→21:50)
[2016-09-05] MEDS: METOPROLOL TARTRATE 25 MG TAB PO SCH (08:20)
[2016-09-05] MEDS: VANCOMYCIN INJ 1,750 MG in SODIUM CHLORID 0.9% 500 ML INJ 500 ML IV SCH (08:20)
[2016-09-05] MEDS: PANTOPRAZOLE 80 MG/100 ML NS IV SCH ×4 (08:20→19:38)
[2016-09-05] MEDS: SODIUM CHLOR 0.9% 1000 ML INJ 1,000 ML IV SCH (08:20)
--- NOTE | 2016-09-05 09:25 | PD.CARD.PN ---
Subjective Subjective Remarks More awake today but confused, unwilling to answer questions Objective Medications Current Medications Medications (Trade) Dose Ordered Sig/Randy Route Start Time Stop Time Status Last Admin Pantoprazole Sodium 80 mg/ Sodium Chloride 100 ml @ 10 mls/hr Q10H IV 09/03/16 16:00 09/05/16 08:20 Sodium Bicarbonate 150 meq/Dextrose 1,150 ml @ 42 mls/hr Q24H IV 09/03/16 17:00 09/04/16 18:41 Ceftriaxone Sodium 2000 mg/ Sodium Chloride 100 ml @ 200 mls/hr Q12H IV 09/03/16 16:00 Hold 09/04/16 06:11 (Rifampin Inj/NS Inj) 100 ml @ 100 mls/hr Q12H IV 09/03/16 18:00 09/05/16 06:00 (Bumex Inj) 1 mg BID@09,18 IV PUSH 09/03/16 18:00 Hold 09/04/16 08:22 (Lopressor) 12.5 mg Q12HR PO 09/03/16 21:00 09/04/16 08:22 (Pill Splitter) 1 ea UNSCH PRN OTHER 09/03/16 19:00 (D50w (Vial) Inj) 50 ml UNSCH PRN IV 09/03/16 19:30 Glucagon 1 mg 1 mg UNSCH PRN OTHER 09/03/16 19:30 Pharmacy Profile Note 0 ml @ 0 mls/hr UNSCH OTHER 09/04/16 11:15 Piperacillin Sod/ Tazobactam Sod 100 ml @ 200 mls/hr Q8H IV 09/04/16 12:00 09/05/16 04:51 Sodium Chloride 1,000 ml @ 100 mls/hr Q10H IV 09/04/16 12:00 09/05/16 08:20 (Vancomycin Inj/ NS 500 ml Inj) 517.5 ml @ 250 mls/hr Q18H IV 09/04/16 14:00 09/05/16 08:20 Miscellaneous Information SPECIFIC LAB TO BE DRAWN:VANCOMYCIN TROUGH DATE TO... ONCE ONCE .XX 09/06/16 19:45 09/06/16 19:46 (Decadron Inj) 4 mg Q6HR IV PUSH 09/04/16 18:00 09/05/16 06:04 Vital Signs / I&O Vital Signs Date Time Temp Pulse Resp B/P Pulse Ox O2 Delivery O2 Flow Rate FiO2 09/05/16 06:00 80 09/05/16 04:00 87 09/05/16 04:00 98.9 87 22 104/49 96 09/05/16 02:00 80 09/05/16 00:00 80 09/05/16 00:00 98.7 80 17 97/45 100 09/04/16 22:00 82 09/04/16 20:00 98.5 82 15 107/50 98 09/04/16 20:00 82 09/04/16 19:56 97 Nasal Cannula 4.00 09/04/16 18:00 85 15 89/54 99 09/04/16 18:00 85 09/04/16 17:00 85 16 110/53 96 09/04/16 17:00 85 09/04/16 16:18 83 19 108/54 97 09/04/16 16:18 83 09/04/16 16:00 86 09/04/16 16:00 98.9 86 26 124/60 95 09/04/16 15:00 84 30 106/61 100 09/04/16 14:56 83 33 100/55 99 09/04/16 14:00 83 09/04/16 14:00 83 16 107/50 99 09/04/16 13:05 Nasal Cannula 4.00 09/04/16 13:00 81 09/04/16 13:00 81 19 96/46 98 09/04/16 12:00 83 09/04/16 12:00 99.7 83 17 98/48 96 09/04/16 11:01 84 09/04/16 11:01 84 17 104/47 96 09/04/16 11:00 83 09/04/16 11:00 83 17 95 09/04/16 10:00 84 09/04/16 10:00 84 18 122/58 95 I/O 09/04/16 09/04/16 09/04/16 09/05/16 09/05/16 09/05/16 07:00 15:00 23:00 07:00 15:00 23:00 Intake Total 284 ml 902 ml 2423 ml 1105 ml Output Total 75 ml 10 ml 25 ml 50 ml Balance 209 ml 892 ml 2398 ml 1055 ml Intake Oral 0 ml 0 ml IV Total 284 ml 902 ml 2423 ml 1105 ml Output Urine Total 75 ml 10 ml 25 ml 50 ml # Bowel Movements 0 0 0 0 Physical Exam GENERAL: NAD, confused SKIN: Warm and dry. HEAD: Atraumatic. Normocephalic. EYES: Pupils equal and round. No scleral icterus. No injection or drainage. ENT: No nasal bleeding or discharge. Mucous membranes pink and moist. NECK: Trachea midline. No JVD. CARDIOVASCULAR: Irregularly irregular RESPIRATORY: No accessory muscle use. Decreased breath sounds bilaterally GASTROINTESTINAL: Abdomen soft, non-tender, nondistended. Hepatic and splenic margins not palpable. MUSCULOSKELETAL: Extremities without clubbing, cyanosis, or edema. No obvious deformities. NEUROLOGICAL: Awake and alert, confused. Appears to move extremities Laboratory Laboratory Tests Test 09/04/16 09/04/16 09/04/16 09/04/16 11:30 12:33 16:00 19:10 Sodium Level 134 MEQ/L 133 MEQ/L Potassium Level 5.3 MEQ/L 5.1 MEQ/L Chloride Level 104 MEQ/L 104 MEQ/L Carbon Dioxide Level 19.8 MEQ/L 18.4 MEQ/L Anion Gap 10 MEQ/L 11 MEQ/L Blood Urea Nitrogen 32 MG/DL 34 MG/DL Creatinine 1.44 MG/DL 1.53 MG/DL Estimat Glomerular Filtration 36 ML/MIN 33 ML/MIN Rate Random Glucose 123 MG/DL 113 MG/DL Lactic Acid Level 1.2 mmol/L Calcium Level 7.6 MG/DL 7.2 MG/DL Total Bilirubin 1.0 MG/DL 1.1 MG/DL Aspartate Amino Transf 23 U/L 18 U/L (AST/SGOT) Alanine Aminotransferase 11 U/L 10 U/L (ALT/SGPT) Alkaline Phosphatase 202 U/L 187 U/L Total Protein 5.2 GM/DL 4.8 GM/DL Albumin 1.7 GM/DL 1.6 GM/DL Triglycerides Level 130 MG/DL Cholesterol Level 68 MG/DL LDL Cholesterol 26 MG/DL HDL Cholesterol 15.9 MG/DL Cholesterol/HDL Ratio 4.27 RATIO Blood Gas Puncture Site LT RADIAL Blood Gas Patient Temperature 98.6 Blood Gas HCO3 17 mmol/L Blood Gas Base Excess -8.8 mmol/L Blood Gas Oxygen Saturation 91 % Arterial Blood pH 7.28 Arterial Blood Partial 37 mmHg Pressure CO2 Arterial Blood Partial 74 mmHg Pressure O2 Arterial Blood Oxygen Content 11.0 Vol % Arterial Blood 2.9 % Carboxyhemoglobin Arterial Blood Methemoglobin 1.1 % Blood Gas Hemoglobin 8.5 G/DL Oxygen Delivery Device NASAL CANNULA Blood Gas Liter Flow 4 L/M Pleural Fluid pH 8.0 Pleural Fluid WBC 1265 /MM3 Pleural Fluid RBC 0 /MM3 Pleural Fluid Neutrophils 71 % Pleural Fluid Lymphocytes 6 % Pleural Fluid Monocytes 13 % Pleural Fluid Histiocytes 5 % Pleural Fluid Mesothelial 5 % Cells Pleural Fluid Total Protein 2.0 GM/DL Pleural Fluid LDH 185 U/L Pleural Fluid Glucose 117 MG/DL White Blood Count 7.6 TH/MM3 Red Blood Count 2.80 MIL/MM3 Hemoglobin 8.2 GM/DL Hematocrit 25.6 % Mean Corpuscular Volume 91.5 FL Mean Corpuscular Hemoglobin 29.4 PG Mean Corpuscular Hemoglobin 32.1 % Concent Red Cell Distribution Width 21.0 % Platelet Count 149 TH/MM3 Mean Platelet Volume 7.9 FL Protein Corrected Calcium 8.5 MG/DL Troponin I 0.05 NG/ML Test 09/05/16 04:30 White Blood Count 5.7 TH/MM3 Red Blood Count 2.70 MIL/MM3 Hemoglobin 7.8 GM/DL Hematocrit 25.0 % Mean Corpuscular Volume 92.8 FL Mean Corpuscular Hemoglobin 28.8 PG Mean Corpuscular Hemoglobin 31.0 % Concent Red Cell Distribution Width 21.4 % Platelet Count 133 TH/MM3 Mean Platelet Volume 8.1 FL Neutrophils (%) (Auto) 84.5 % Lymphocytes (%) (Auto) 12.4 % Monocytes (%) (Auto) 2.4 % Eosinophils (%) (Auto) 0.1 % Basophils (%) (Auto) 0.6 % Neutrophils # (Auto) 4.8 TH/MM3 Lymphocytes # (Auto) 0.7 TH/MM3 Monocytes # (Auto) 0.1 TH/MM3 Eosinophils # (Auto) 0.0 TH/MM3 Basophils # (Auto) 0.0 TH/MM3 CBC Comment DIFF FINAL Differential Comment Sodium Level 135 MEQ/L Potassium Level 5.4 MEQ/L Chloride Level 104 MEQ/L Carbon Dioxide Level 19.0 MEQ/L Anion Gap 12 MEQ/L Blood Urea Nitrogen 35 MG/DL Creatinine 1.66 MG/DL Estimat Glomerular Filtration 30 ML/MIN Rate Random Glucose 133 MG/DL Calcium Level 7.3 MG/DL Protein Corrected Calcium 8.6 MG/DL Phosphorus Level 4.0 MG/DL Magnesium Level 1.6 MG/DL Total Bilirubin 0.9 MG/DL Aspartate Amino Transf 18 U/L (AST/SGOT) Alanine Aminotransferase 10 U/L (ALT/SGPT) Alkaline Phosphatase 177 U/L Total Protein 4.8 GM/DL Albumin 1.6 GM/DL Assessment and Plan Problem List: (1) Sepsis (2) Encephalopathy (3) Metabolic acidosis (4) Mycotic aneurysm (5) Hemorrhagic cerebrovascular accident (CVA) (6) Ischemic stroke of frontal lobe (7) S/P AVR (8) Diabetes (9) Acute hypoxemic respiratory failure (10) HCAP (healthcare-associated pneumonia) (11) Paroxysmal a-fib (12) NANCY (acute kidney injury) (13) Bilateral pleural effusion (14) MSSA (methicillin susceptible Staphylococcus aureus) septicemia (15) HLD (hyperlipidemia) (16) HTN (hypertension) (17) Anasarca (18) Hematemesis Assessment and Plan 1) History of mechanical aortic valve replacement, previously on Coumadin Had GI bleed with INR 5.8 CVA off Coumadin with hemorrhagic conversion once placed on heparin Hematemesis off anticoagulation with drop in Hgb of 3g Not an anticoagulation candidate, would consider ASA 81mg once ok with neurosurgery/GI 2) Acute confusion, discussed with primary team 3) CHF, will continue diuresis s/p right sided thoracentesis 4) Not a cardiac catheterization candidate, so would not plan on ischemic evaluation 5) Discussed with the family (2 sons and daughter) extensively about not being an anticoagulation candidate and my overall concern for her health with long hospitalization. They understand and agree. 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
[2016-09-05] MEDS ORDERED: INSULIN HUMAN REGULAR 1,000 UNITS/10 ML VIAL IV PUSH ONE (09:30)
[2016-09-05] MEDS ORDERED: DEXTROSE 50% IN WATER 50 ML VIAL(D50) IV PUSH ONE (09:30)
--- NOTE | 2016-09-05 10:07 | HHI.PR ---
Subjective Remarks As per RN patient this am very confused, however she states this has resolved Patient denies cp/sob Patient seem to be awake and alert BP borderline hypotensive no fevers sp thoracentesis 09/04 Objective Vitals Vital Signs Date Time Temp Pulse Resp B/P Pulse Ox O2 Delivery O2 Flow Rate FiO2 09/05/16 08:00 81 09/05/16 08:00 97.3 81 7 88/52 99 09/05/16 06:00 80 09/05/16 04:00 87 09/05/16 04:00 98.9 87 22 104/49 96 09/05/16 02:00 80 09/05/16 00:00 80 09/05/16 00:00 98.7 80 17 97/45 100 09/04/16 22:00 82 09/04/16 20:00 98.5 82 15 107/50 98 09/04/16 20:00 82 09/04/16 19:56 97 Nasal Cannula 4.00 09/04/16 18:00 85 15 89/54 99 09/04/16 18:00 85 09/04/16 17:00 85 16 110/53 96 09/04/16 17:00 85 09/04/16 16:18 83 19 108/54 97 09/04/16 16:18 83 09/04/16 16:00 86 09/04/16 16:00 98.9 86 26 124/60 95 09/04/16 15:00 84 30 106/61 100 09/04/16 14:56 83 33 100/55 99 09/04/16 14:00 83 09/04/16 14:00 83 16 107/50 99 09/04/16 13:05 Nasal Cannula 4.00 09/04/16 13:00 81 09/04/16 13:00 81 19 96/46 98 09/04/16 12:00 83 09/04/16 12:00 99.7 83 17 98/48 96 09/04/16 11:01 84 09/04/16 11:01 84 17 104/47 96 09/04/16 11:00 83 09/04/16 11:00 83 17 95 I/O 09/04/16 09/04/16 09/04/16 09/05/16 09/05/16 09/05/16 07:00 15:00 23:00 07:00 15:00 23:00 Intake Total 284 ml 902 ml 2423 ml 1105 ml Output Total 75 ml 10 ml 25 ml 50 ml Balance 209 ml 892 ml 2398 ml 1055 ml Intake Oral 0 ml 0 ml IV Total 284 ml 902 ml 2423 ml 1105 ml Output Urine Total 75 ml 10 ml 25 ml 50 ml # Bowel Movements 0 0 0 0 Result Diagram: 09/05/16 0430 09/05/16 0430 Imaging Last Impressions Thoracentesis 09/04/16 1540 Signed Impressions: Service Date/Time: Sunday, September 04, 2016 15:34 - CONCLUSION: 1. Uncomplicated right thoracentesis with removal of 600 mL of clear yellow fluid. There is only a minimal amount of right pleural fluid remaining. 2. Small left pleural effusion. There is also bilateral lower lobe atelectasis and patchy consolidation in the lungs bilaterally. Julian Lua MD Lower Extremity Ultrasound 09/04/16 0000 Signed Impressions: Service Date/Time: Sunday, September 04, 2016 09:34 - CONCLUSION: No evidence of DVT. Rohith Gibson MD Head CT 09/04/16 0000 Signed Impressions: Service Date/Time: Sunday, September 04, 2016 15:22 - CONCLUSION: 1. There appears to be an intracranial mass measuring 1.3 cm surrounded by vasogenic edema high along the right cerebral vertex. In a patient with a previous history of breast cancer, metastatic disease is the primary consideration. Recommend MRI of the brain with and without contrast further evaluation. Rohith Gibson MD Lung Scan- Nuclear Medicine 09/03/16 0000 Signed Impressions: Service Date/Time: Saturday, September 03, 2016 22:02 - CONCLUSION: Low probability for pulmonary embolism. Mikel Ross MD Objective Remarks GENERAL: This is a well-nourished, well-developed patient, nad. SKIN: No rashes, ecchymoses or lesions. Cool and dry. HEAD: Atraumatic. Normocephalic. No temporal or scalp tenderness. EYES: Pupils equal round and reactive. Extraocular motions intact. No scleral icterus. No injection or drainage. ENT: Nose without bleeding, purulent drainage or septal hematoma. Throat without erythema, tonsillar hypertrophy or exudate. Uvula midline. Airway patent. NECK: Trachea midline. No JVD or lymphadenopathy. Supple, nontender, no meningeal signs. CARDIOVASCULAR: Regular rate and rhythm without murmurs, gallops, or rubs. RESPIRATORY: Clear to auscultation. Breath sounds equal bilaterally but decreased at the bases. No wheezes, rales, or rhonchi. GASTROINTESTINAL: Abdomen soft, non-tender, nondistended. No hepato-splenomegaly , or palpable masses. No guarding. MUSCULOSKELETAL: Extremities without clubbing, cyanosis, or edema. No joint tenderness, effusion, or edema noted. No calf tenderness. Negative Homans sign bilaterally. NEUROLOGICAL: Lethargic. Difficult to asses rest of neurologic exam at this time. moves all extremities. Medications and IVs Current Medications Medications (Trade) Dose Ordered Sig/Randy Route Start Time Stop Time Status Last Admin Pantoprazole Sodium 80 mg/ Sodium Chloride 100 ml @ 10 mls/hr Q10H IV 09/03/16 16:00 09/05/16 08:20 Sodium Bicarbonate 150 meq/Dextrose 1,150 ml @ 84 mls/hr [id number] IV 09/03/16 17:00 09/04/16 18:41 Ceftriaxone Sodium 2000 mg/ Sodium Chloride 100 ml @ 200 mls/hr Q12H IV 09/03/16 16:00 Hold 09/04/16 06:11 (Rifampin Inj/NS Inj) 100 ml @ 100 mls/hr Q12H IV 09/03/16 18:00 09/05/16 06:00 (Bumex Inj) 1 mg BID@09,18 IV PUSH 09/03/16 18:00 Hold 09/04/16 08:22 (Lopressor) 12.5 mg Q12HR PO 09/03/16 21:00 Hold 09/04/16 08:22 (Pill Splitter) 1 ea UNSCH PRN OTHER 09/03/16 19:00 (D50w (Vial) Inj) 50 ml UNSCH PRN IV 09/03/16 19:30 Glucagon 1 mg 1 mg UNSCH PRN OTHER 09/03/16 19:30 Pharmacy Profile Note 0 ml @ 0 mls/hr UNSCH OTHER 09/04/16 11:15 Piperacillin Sod/ Tazobactam Sod 100 ml @ 200 mls/hr Q8H IV 09/04/16 12:00 09/05/16 12:01 (Vancomycin Inj/ NS 500 ml Inj) 517.5 ml @ 250 mls/hr Q18H IV 09/04/16 14:00 Hold 09/05/16 08:20 (Decadron Inj) 4 mg Q6HR IV PUSH 09/04/16 18:00 09/05/16 12:00 (Diflucan) 100 mg DAILY PO 09/05/16 15:00 09/12/16 14:59 Urinary Catheter: No Vascular Central Line Catheter: No A/P Problem List: (1) Sepsis ICD Code: A41.9 Status: Acute Plan: Present on admission - patient with hr > 93 and RR > 20, now has elevated temp 100.3 F Patient previously on Rocephin and Azithromycin for treatment of HCAP. Continue IV Vancomycin and IV Zosyn, diflucan UA (+), Urine culture - yeast species. ID Consult pending Blood culture negative x1 (2) Encephalopathy ICD Code: G93.40 Status: Acute Plan: Likely metabolic encephalopathy from sepsis. 09/05 CT showed possible mass. Neurosurgery consulted, recommended MRI of the brain. MRI of the brain was ordered, however radiology states due to recent coiling and and no materials of the coils cannot proceed with test. Will try to obtain records to provide to radiology. Patient is much more awake and alert today, encephalopathy seems to be resolving. (3) Hematemesis ICD Code: K92.0 Status: Acute Plan: Patient was admitted to intensive care unit CT abdomen and pelvis is suggestive of ileus, GI consulted. EGD to be done by GI. fu Gi recommendations Hemoglobin continues to trend down, however there is no active bleeding noticed. Continue to monitor H&H. Transfuse for hemoglobin less than 7, or less than 8 if the patient is actively bleeding. Goal hemoglobin more than 9. (4) Metabolic acidosis ICD Code: E87.2 Status: Acute Plan: Bicarbonate was very low on admission. Continue bicarbonate drip. (5) Bilateral pleural effusion ICD Code: J90 Status: Acute Plan: IR consulted for right-sided the therapeutic thoracentesis. 2-D echo shows mild LVH. Estimated ejection fractions in the range of 55-60%. There is no regional wall motion abnormality. Bileaflet aortic valve prosthesis present. Hold diuretics given worsening creatinine. (6) Paroxysmal a-fib ICD Code: I48.0 Status: Chronic Plan: Hold metoprolol for now given borderline hypotension. May be resumed as soon as the BP is more stable. 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 (8) HTN (hypertension) ICD Code: I10 Status: Chronic Plan: Patient hypotensive. will hold beta monse for now due to hypotension. (9) HLD (hyperlipidemia) ICD Code: E78.5 Status: Chronic Plan: not currently on a statin. Lipid profile shows a cholesterol of 68 and LDL cholesterol 26, while under control. Continue statin. (10) MSSA (methicillin susceptible Staphylococcus aureus) septicemia ICD Code: A41.01 Status: Chronic Plan: Previously on Rocephin and Azithromycin. Continue IV antibiotics as per ID, now on vancomycin and IV Zosyn fu blood cultures - negative so far fu infectious disease recommendations (11) NANCY (acute kidney injury) ICD Code: N17.9 Status: Acute Plan: Patient's creatinine seems to be worsening. Up to 1.6 Continue IV fluids renal consult placed Monitor BUN/creatinine, strict I's and O's, avoid nephrotoxins will check urine eosinophils ct abd and pelvis done on 09/03 did not show hydronephrosis. (12) HCAP (healthcare-associated pneumonia) ICD Code: J18.9 Status: Acute Plan: Antibiotics as above. fu Id recommendations (13) S/P AVR ICD Code: Z95.2 Status: Chronic Plan: To the echocardiogram as mentioned above. Mechanical aVR 13 years ago. Discussed the case with Dr. Reyes from cardiology.He think the patient is not a good anti-correlation candidate and this makes his long-term prognosis very poor. (14) Anasarca ICD Code: R60.1 Status: Acute Plan: Follow-up strict input and output. Continue to hold diuretics (15) Acute hypoxemic respiratory failure ICD Code: J96.01 Status: Acute Plan: Likely due to PNA and HCAP. Patient on ventimask 09/03 down to 4 liters nasal canula. VQ scan low probability for PE. 09/05 Improving respiratory failure - Patient now on 4 liters nasal canula. (16) Lower extremity pain, bilateral ICD Code: M79.604 Status: Acute Plan: Bilateral lower extremity pain on exam. DVT ruled out with bilat venous doppler. (17) Diabetes ICD Code: E11.9 Status: Acute Plan: Continue to hold metformin. Blood sugars seem to be stable. Continue SSI with insulin novolog, continue to monitor accuchecks. (18) Ileus ICD Code: K56.7 Status: Acute Plan: As shown on CT described above. GI following. Placed on liquid diet Patient is passing gas but still has abdominal pain Assessment and Plan GI prophylaxis - continue protonix drip dvt prophylaxis - SCD's Discharge Planning Continue to monitor in the intensive care unit. 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
--- NOTE | 2016-09-05 14:02 | HHI.IDPN ---
Subjective Subjective Remarks Patient is a 70-year-old female, transferred from [facility] to the [facility] after she had coffee ground emesis, and hypoxemia. Patient was initially at [facility] with an acute GI bleed back in July 2016. She had a very high pro-time, and she had been on Coumadin for her atrial fibrillation and aVR. GI workup at that time did not reveal any active source of bleeding. 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 She was started on anticoagulation, and had hemorrhagic conversion of her stroke. She underwent CTA and finding showed suggestion of mycotic aneurysm. She apparently developed sepsis at that time and required pressors for shock, she was intubated. She was subsequently transferred to the [facility] on August 12, and underwent coiling. 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 RADHA however did not show any vegetation in any of her valves. She subsequently improved and got extubated. She was transferred to [facility] for comprehensive rehabilitation on August 28, 2016. Infectious disease recommendation at that time is for her to complete Rocephin and rifampin September. While at [facility], she was doing rehabilitation. She's had some problem with lethargy. On the day of admission she apparently had nausea and vomiting and had some abdominal pain and some chest pain. She had coffee ground emesis. Her O2 saturation at that time was in the 70s, and she appeared dyspneic. She was therefore admitted to the [facility] for closer monitoring and further evaluation and treatment. While at [facility] she had 2 units of packed RBC that was transfused. Her hemoglobin was staying around 10, and on the day of admission it was down to 8. She's had some low-grade temps. According to the nurse she's been very lethargic this morning. Patient just came back from the radiology department for she had thoracenteses as well as CT of the head. Patient currently is on nasal O2. She is not on any pressors. Monitor shows atrial fibrillation. CT of the abdomen and pelvis showed possible ileus, and she had evidence of bilateral pleural effusion and consolidation. She also had a urinalysis which showed some pyuria. Patient's urine output has been low, and her creatinine had gone up to 1.44. It was 0.8 previously. Infectious disease consultation has been requested to evaluate patient with multiple problems including sepsis, UTI, possible pneumonia. Notes reviewed Temps ok She is awake and alert UO low Neurosurgery notes reviewed - CT head with ?mass UC with yeast BC negative Pleural fluid C/S negative Antibiotics Vanco - on hold Zosyn Rifampin Past Medical History Reviewed Allergies: Coded Allergies: Codeine (Verified Allergy, Unknown, 08/27/16) Haldol (Verified Allergy, Unknown, 08/27/16) Objective . Vital Signs Date Time Temp Pulse Resp B/P Pulse Ox O2 Delivery O2 Flow Rate FiO2 09/05/16 12:00 82 09/05/16 12:00 97.5 82 17 104/50 100 09/05/16 10:00 82 09/05/16 08:00 81 09/05/16 08:00 97.3 81 7 88/52 99 09/05/16 06:00 80 09/05/16 04:00 87 09/05/16 04:00 98.9 87 22 104/49 96 09/05/16 02:00 80 09/05/16 00:00 80 09/05/16 00:00 98.7 80 17 97/45 100 09/04/16 22:00 82 09/04/16 20:00 98.5 82 15 107/50 98 09/04/16 20:00 82 09/04/16 19:56 97 Nasal Cannula 4.00 09/04/16 18:00 85 15 89/54 99 09/04/16 18:00 85 09/04/16 17:00 85 16 110/53 96 09/04/16 17:00 85 09/04/16 16:18 83 19 108/54 97 09/04/16 16:18 83 09/04/16 16:00 86 09/04/16 16:00 98.9 86 26 124/60 95 09/04/16 15:00 84 30 106/61 100 09/04/16 14:56 83 33 100/55 99 09/04/16 14:00 83 09/04/16 14:00 83 16 107/50 99 09/04/16 09/04/16 09/05/16 15:00 23:00 07:00 Intake Total 902 ml 2423 ml 1105 ml Output Total 10 ml 25 ml 50 ml Balance 892 ml 2398 ml 1055 ml Intake Oral 0 ml IV Total 902 ml 2423 ml 1105 ml Output Urine Total 10 ml 25 ml 50 ml # Bowel Movements 0 0 0 . Laboratory Tests Test 09/04/16 09/04/16 09/05/16 04:00 19:10 04:30 White Blood Count 9.4 TH/MM3 7.6 TH/MM3 5.7 TH/MM3 Red Blood Count 2.83 MIL/MM3 2.80 MIL/MM3 2.70 MIL/MM3 Hemoglobin 8.5 GM/DL 8.2 GM/DL 7.8 GM/DL Hematocrit 25.6 % 25.6 % 25.0 % Mean Corpuscular Volume 90.7 FL 91.5 FL 92.8 FL Mean Corpuscular Hemoglobin 29.9 PG 29.4 PG 28.8 PG Mean Corpuscular Hemoglobin 33.0 % 32.1 % 31.0 % Concent Red Cell Distribution Width 21.2 % 21.0 % 21.4 % Platelet Count 166 TH/MM3 149 TH/MM3 133 TH/MM3 Mean Platelet Volume 8.1 FL 7.9 FL 8.1 FL Neutrophils (%) (Auto) 78.3 % 84.5 % Lymphocytes (%) (Auto) 11.0 % 12.4 % Monocytes (%) (Auto) 8.2 % 2.4 % Eosinophils (%) (Auto) 1.9 % 0.1 % Basophils (%) (Auto) 0.6 % 0.6 % Neutrophils # (Auto) 7.4 TH/MM3 4.8 TH/MM3 Lymphocytes # (Auto) 1.0 TH/MM3 0.7 TH/MM3 Monocytes # (Auto) 0.8 TH/MM3 0.1 TH/MM3 Eosinophils # (Auto) 0.2 TH/MM3 0.0 TH/MM3 Basophils # (Auto) 0.1 TH/MM3 0.0 TH/MM3 CBC Comment DIFF FINAL DIFF FINAL Differential Comment Laboratory Tests Test 09/03/16 09/03/16 09/03/16 09/04/16 15:19 19:55 21:20 05:50 Sodium Level 133 MEQ/L Potassium Level 5.3 MEQ/L Chloride Level 103 MEQ/L Carbon Dioxide Level 14.8 MEQ/L Anion Gap 15 MEQ/L Blood Urea Nitrogen 30 MG/DL Creatinine 1.01 MG/DL Estimat Glomerular Filtration 54 ML/MIN Rate Random Glucose 152 MG/DL Calcium Level 7.7 MG/DL Total Bilirubin 1.1 MG/DL Aspartate Amino Transf 25 U/L (AST/SGOT) Alanine Aminotransferase 12 U/L (ALT/SGPT) Alkaline Phosphatase 247 U/L Total Protein 5.5 GM/DL Albumin 1.9 GM/DL B-Type Natriuretic Peptide 958 PG/ML Troponin I 0.06 NG/ML 0.06 NG/ML Test 09/04/16 09/04/16 09/05/16 11:30 19:10 04:30 Sodium Level 134 MEQ/L 133 MEQ/L 135 MEQ/L Potassium Level 5.3 MEQ/L 5.1 MEQ/L 5.4 MEQ/L Chloride Level 104 MEQ/L 104 MEQ/L 104 MEQ/L Carbon Dioxide Level 19.8 MEQ/L 18.4 MEQ/L 19.0 MEQ/L Anion Gap 10 MEQ/L 11 MEQ/L 12 MEQ/L Blood Urea Nitrogen 32 MG/DL 34 MG/DL 35 MG/DL Creatinine 1.44 MG/DL 1.53 MG/DL 1.66 MG/DL Estimat Glomerular Filtration 36 ML/MIN 33 ML/MIN 30 ML/MIN Rate Random Glucose 123 MG/DL 113 MG/DL 133 MG/DL Lactic Acid Level 1.2 mmol/L Calcium Level 7.6 MG/DL 7.2 MG/DL 7.3 MG/DL Total Bilirubin 1.0 MG/DL 1.1 MG/DL 0.9 MG/DL Aspartate Amino Transf 23 U/L 18 U/L 18 U/L (AST/SGOT) Alanine Aminotransferase 11 U/L 10 U/L 10 U/L (ALT/SGPT) Alkaline Phosphatase 202 U/L 187 U/L 177 U/L Total Protein 5.2 GM/DL 4.8 GM/DL 4.8 GM/DL Albumin 1.7 GM/DL 1.6 GM/DL 1.6 GM/DL Triglycerides Level 130 MG/DL Cholesterol Level 68 MG/DL LDL Cholesterol 26 MG/DL HDL Cholesterol 15.9 MG/DL Cholesterol/HDL Ratio 4.27 RATIO Protein Corrected Calcium 8.5 MG/DL 8.6 MG/DL Troponin I 0.05 NG/ML Phosphorus Level 4.0 MG/DL Magnesium Level 1.6 MG/DL Microbiology Date/Time Procedure Status Source Growth 09/03/16 16:00 Gram Stain Received Fluid Pleural Fluid Pending 09/03/16 16:00 Body Fluid Culture Received Fluid Pleural Fluid Pending 09/03/16 20:40 Urine Culture - Preliminary Resulted Urine Catheterized Urine Yeast Species 09/04/16 05:50 MRSA Surveillance Culture - Preliminary Resulted Nasopharyngeal No growth. 09/04/16 11:52 Aerobic Blood Culture - Preliminary Resulted Blood Peripheral NO GROWTH IN 1 DAY 09/04/16 11:52 Anaerobic Blood Culture - Preliminary Resulted Blood Peripheral NO GROWTH IN 1 DAY 09/04/16 11:57 Aerobic Blood Culture - Preliminary Resulted Blood Peripheral NO GROWTH IN 1 DAY 09/04/16 11:57 Anaerobic Blood Culture - Preliminary Resulted Blood Peripheral NO GROWTH IN 1 DAY 09/04/16 16:00 Gram Stain - Final Resulted Fluid Pleural Fluid 09/04/16 16:00 Body Fluid Culture - Preliminary Resulted Fluid Pleural Fluid NO GROWTH IN 24 HOURS. Imaging Last Impressions Thoracentesis 09/04/16 1540 Signed Impressions: Service Date/Time: Sunday, September 04, 2016 15:34 - CONCLUSION: 1. Uncomplicated right thoracentesis with removal of 600 mL of clear yellow fluid. There is only a minimal amount of right pleural fluid remaining. 2. Small left pleural effusion. There is also bilateral lower lobe atelectasis and patchy consolidation in the lungs bilaterally. Julian Lua MD Lower Extremity Ultrasound 09/04/16 0000 Signed Impressions: Service Date/Time: Sunday, September 04, 2016 09:34 - CONCLUSION: No evidence of DVT. Rohith Gibson MD Head CT 09/04/16 0000 Signed Impressions: Service Date/Time: Sunday, September 04, 2016 15:22 - CONCLUSION: 1. There appears to be an intracranial mass measuring 1.3 cm surrounded by vasogenic edema high along the right cerebral vertex. In a patient with a previous history of breast cancer, metastatic disease is the primary consideration. Recommend MRI of the brain with and without contrast further evaluation. Rohith Gibson MD Lung Scan- Nuclear Medicine 09/03/16 0000 Signed Impressions: Service Date/Time: Saturday, September 03, 2016 22:02 - CONCLUSION: Low probability for pulmonary embolism. Mikel Ross MD Physical Exam GENERAL: Patient is an obese, well-developed patient, awake and alert, not in respiratory distress. SKIN: Warm and dry. No generalized rash, no ecchymoses and no evidence of embolic lesions. HEAD: Atraumatic. Normocephalic. No temporal wasting, or tenderness. EYES: [place] conjunctiva. Has scleral hemorrhage on R, and has scleral edema. Pupils equal, round and reactive to light. Extraocular movements full and intact. EARS, NOSE AND THROAT: Nose without bleeding or purulent nasal discharge. Moist oral mucosa. NECK: Trachea midline. Supple and not tender, no meningeal signs CARDIOVASCULAR: Irregular rate and rhythm. No rubs. Has a harsh systolic murmur at base of the heart RESPIRATORY: Coarse breath sounds bilaterally. No rales, wheezing or rhonchi. Decreased at bases ABDOMEN: Globular and distended, has a large incisional/ventral hernia, has diffuse tenderness, no guarding or rebound, bowel sounds present and hypoactive. EXTREMITIES: No clubbing, cyanosis. Both feet cool to touch, no mottling. , Skin tight both LE. No calf tenderness. NEUROLOGICAL: No facial asymmetry, full EOM, tongue midline. Equal motor strength PSYCHIATRIC: Calm and cooperative LINE: No evidence of infection : Ruiz in place, clear yellow urine Assessment & Plan Remarks IMPRESSION Sepsis, source? - has UTI - ?new PNA, ?aspiration - on Rx for MSSA sepsis, and presumed PVE, AVR, RADHA negative - has ileus Recurrent GIB CVA, S/P coiling of aneurysm Chronic atrial fib S/P AVR 2006 Renal insufficiency, ?due to sepsis RECOMMENDATION Continue Vanco Contnue Zosyn Continue Diflucan Follow C/S Monitor progress D/W Dr Luna I will follow along with you Mary Valadez MD September 05, 2016 14:02
--- NOTE | 2016-09-05 14:36 | HHI.GIFU ---
Subjective Remarks Pt resting in bed, in no apparent distress. She denies abd pain, nausea. ( Shanthi Mckoy) Objective Vitals I&O Vital Signs Date Time Temp Pulse Resp B/P Pulse Ox O2 Delivery O2 Flow Rate FiO2 09/05/16 12:00 82 09/05/16 12:00 97.5 82 17 104/50 100 09/05/16 10:00 82 09/05/16 08:00 81 09/05/16 08:00 97.3 81 7 88/52 99 09/05/16 06:00 80 09/05/16 04:00 87 09/05/16 04:00 98.9 87 22 104/49 96 09/05/16 02:00 80 09/05/16 00:00 80 09/05/16 00:00 98.7 80 17 97/45 100 09/04/16 22:00 82 09/04/16 20:00 98.5 82 15 107/50 98 09/04/16 20:00 82 09/04/16 19:56 97 Nasal Cannula 4.00 09/04/16 18:00 85 15 89/54 99 09/04/16 18:00 85 09/04/16 17:00 85 16 110/53 96 09/04/16 17:00 85 09/04/16 16:18 83 19 108/54 97 09/04/16 16:18 83 09/04/16 16:00 86 09/04/16 16:00 98.9 86 26 124/60 95 09/04/16 15:00 84 30 106/61 100 09/04/16 14:56 83 33 100/55 99 I/O 09/04/16 09/04/16 09/04/16 09/05/16 09/05/16 09/05/16 07:00 15:00 23:00 07:00 15:00 23:00 Intake Total 284 ml 902 ml 2423 ml 1105 ml Output Total 75 ml 10 ml 25 ml 50 ml Balance 209 ml 892 ml 2398 ml 1055 ml Intake Oral 0 ml 0 ml IV Total 284 ml 902 ml 2423 ml 1105 ml Output Urine Total 75 ml 10 ml 25 ml 50 ml # Bowel Movements 0 0 0 0 Laboratory Laboratory Tests Test 09/04/16 09/04/16 09/05/16 16:00 19:10 04:30 Pleural Fluid pH 8.0 Pleural Fluid WBC 1265 Pleural Fluid RBC 0 Pleural Fluid Neutrophils 71 Pleural Fluid Lymphocytes 6 Pleural Fluid Monocytes 13 Pleural Fluid Histiocytes 5 Pleural Fluid Mesothelial 5 Cells Pleural Fluid Total Protein 2.0 Pleural Fluid LDH 185 Pleural Fluid Glucose 117 White Blood Count 7.6 5.7 Red Blood Count 2.80 2.70 Hemoglobin 8.2 7.8 Hematocrit 25.6 25.0 Mean Corpuscular Volume 91.5 92.8 Mean Corpuscular Hemoglobin 29.4 28.8 Mean Corpuscular Hemoglobin 32.1 31.0 Concent Red Cell Distribution Width 21.0 21.4 Platelet Count 149 133 Mean Platelet Volume 7.9 8.1 Sodium Level 133 135 Potassium Level 5.1 5.4 Chloride Level 104 104 Carbon Dioxide Level 18.4 19.0 Anion Gap 11 12 Blood Urea Nitrogen 34 35 Creatinine 1.53 1.66 Estimat Glomerular Filtration 33 30 Rate Random Glucose 113 133 Calcium Level 7.2 7.3 Protein Corrected Calcium 8.5 8.6 Total Bilirubin 1.1 0.9 Aspartate Amino Transf 18 18 (AST/SGOT) Alanine Aminotransferase 10 10 (ALT/SGPT) Alkaline Phosphatase 187 177 Troponin I 0.05 Total Protein 4.8 4.8 Albumin 1.6 1.6 Neutrophils (%) (Auto) 84.5 Lymphocytes (%) (Auto) 12.4 Monocytes (%) (Auto) 2.4 Eosinophils (%) (Auto) 0.1 Basophils (%) (Auto) 0.6 Neutrophils # (Auto) 4.8 Lymphocytes # (Auto) 0.7 Monocytes # (Auto) 0.1 Eosinophils # (Auto) 0.0 Basophils # (Auto) 0.0 CBC Comment DIFF FINAL Differential Comment Phosphorus Level 4.0 Magnesium Level 1.6 Date/Time Procedure Status Source Growth 09/04/16 16:00 Gram Stain - Final Resulted Fluid Pleural Fluid 09/04/16 16:00 Body Fluid Culture - Preliminary Resulted Fluid Pleural Fluid NO GROWTH IN 24 HOURS. 09/04/16 11:57 Aerobic Blood Culture - Preliminary Resulted Blood Peripheral NO GROWTH IN 1 DAY 09/04/16 11:57 Anaerobic Blood Culture - Preliminary Resulted Blood Peripheral NO GROWTH IN 1 DAY 09/04/16 05:50 MRSA Surveillance Culture - Preliminary Resulted Nasopharyngeal No growth. 09/03/16 20:40 Urine Culture - Preliminary Resulted Urine Catheterized Urine Yeast Species 09/03/16 16:00 Gram Stain Received Fluid Pleural Fluid Pending 09/03/16 16:00 Body Fluid Culture Received Fluid Pleural Fluid Pending Imaging Last Impressions Thoracentesis 09/04/16 1540 Signed Impressions: Service Date/Time: Sunday, September 04, 2016 15:34 - CONCLUSION: 1. Uncomplicated right thoracentesis with removal of 600 mL of clear yellow fluid. There is only a minimal amount of right pleural fluid remaining. 2. Small left pleural effusion. There is also bilateral lower lobe atelectasis and patchy consolidation in the lungs bilaterally. Julian Lua MD Lower Extremity Ultrasound 09/04/16 0000 Signed Impressions: Service Date/Time: Sunday, September 04, 2016 09:34 - CONCLUSION: No evidence of DVT. Rohith Gibson MD Head CT 09/04/16 0000 Signed Impressions: Service Date/Time: Sunday, September 04, 2016 15:22 - CONCLUSION: 1. There appears to be an intracranial mass measuring 1.3 cm surrounded by vasogenic edema high along the right cerebral vertex. In a patient with a previous history of breast cancer, metastatic disease is the primary consideration. Recommend MRI of the brain with and without contrast further evaluation. Rohith Gibson MD Lung Scan- Nuclear Medicine 09/03/16 0000 Signed Impressions: Service Date/Time: Saturday, September 03, 2016 22:02 - CONCLUSION: Low probability for pulmonary embolism. Mikel Ross MD Physical Exam HEENT: right eye with blood in sclera; normocephalic; atraumatic; no jaundice. CHEST: rhonchi CARDIAC: Regular rate and rhythm with click ABDOMEN: Soft, distended, TTP diffusely; no hepatosplenomegaly; bowel sounds hypoactive in all four quadrants. EXTREMITIES: No clubbing, cyanosis, generalized edema. SKIN: Normal; no rash; no jaundice. GEAR TECHNICIAN: lethargic. (Shanthi Mckoy) Assessment and Plan Plan ASSESSMENT - abdominal pain - on exam, pt unable to contribute history ? ileus CT 09-03-16 --> relatively diffuse distention small bowel and colon, poss representing ileus. there are few decompressed segments of small bowel but no clear pattern is present to indicate small bowel obstruction, small volume free fluid abd and pelvis KUB 5-29-17 --> abnormal bowel gas pattern with mild diffuse distention of small bowel and colon, no transition point appreciated suggesting ileus as potential cause - hematemesis - none currently. Started 3 days ago for 2d, with coffee ground appearance. pos hemoccult. HH 8.5, 25.6 Has hx GIB and had EGD/colonoscopy last month? and no source bleeding found per EMR. - abnormal CT head- intracranial mass PLAN - SSE x 2 - EGD when stable - full liquid diet if tolerated - continue protonix - monitor HH - transfuse if necessary - supportive care - further recommendations to follow results above This pt seen by myself and Dr Eduardo and this note is written on his behalf. ( Shanthi Mckoy) Physician Comments Seen and examined, plan as above, recent Panendoscopy done, will follow up with you and further recommendations to follow. (Ingrid Eduardo MD) Shanthi Mckoy September 05, 2016 14:36 Ingrid Eduardo MD Sep 06, 2016 06:55
--- NOTE | 2016-09-05 15:10 | HHI.NSPN ---
(Giana Craft) Note Status Status: Progress Note (Giana Craft) Interval History Interval History This is a 70 year old female with past medical history of PAFIB, HTN, CHF, S/P AVR 2006, Breast cancer s/p mastectomy, colon cancer s/p partial ascending colon resection with resultant chronic diarrhea who was admitted to [facility] on 07/28/16 with GI bleeding from rectum and was found to be supratherapeutic with INR 5.8 (was on Coumadin). Her hemoglobin dropped and she underwent an EGD and colonoscopy for further evaluation but no clear source of bleeding was identified. She was started on PPI. On 08/06/16, she complained of diplopia and CT of the brain showed a right frontal ischemic CVA . She was anticoagulated with heparin and became supratherapeutic with PTT > 100. She again developed neurological changes and CT showed conversion to hemorrhagic CVA. CTA suspicious for mycotic aneurysm. She became septic with temp 104 and required intubation and shakila drip. She was transferred to [facility] on 08/12/16 and underwent coiling of the aneurysm. 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 However, RADHA did not show this. She developed respiratory failure and required intubation and mechanical ventilation. She has history of metastatic breast CA and has undergone a mastectomy. CT showed a reported mass. Neurosurgical consultation was requested 09/05: MRI Brain still pending, radiology needing type of coil used from [facility]. patient reports does not feel well today, daughter at bedside would like patient transferred back to [facility]. (Giana Craft) Labs, Micro, & Vital Signs Results Date Time Temp Pulse Resp B/P Pulse Ox O2 Delivery O2 Flow Rate FiO2 09/05/16 12:00 82 09/05/16 12:00 97.5 82 17 104/50 100 09/05/16 10:00 82 09/05/16 08:00 81 09/05/16 08:00 97.3 81 7 88/52 99 09/05/16 06:00 80 09/05/16 04:00 87 09/05/16 04:00 98.9 87 22 104/49 96 09/05/16 02:00 80 09/05/16 00:00 80 09/05/16 00:00 98.7 80 17 97/45 100 09/04/16 22:00 82 09/04/16 20:00 98.5 82 15 107/50 98 09/04/16 20:00 82 09/04/16 19:56 97 Nasal Cannula 4.00 09/04/16 18:00 85 15 89/54 99 09/04/16 18:00 85 09/04/16 17:00 85 16 110/53 96 09/04/16 17:00 85 09/04/16 16:18 83 19 108/54 97 09/04/16 16:18 83 09/04/16 16:00 86 09/04/16 16:00 98.9 86 26 124/60 95 09/05/16 07:00 Intake Total 4430 ml Output Total 85 ml Balance 4345 ml Constitutional Vital Signs Date Time Temp Pulse Resp B/P Pulse Ox O2 Delivery O2 Flow Rate FiO2 09/05/16 12:00 82 09/05/16 12:00 97.5 82 17 104/50 100 09/05/16 10:00 82 09/05/16 08:00 81 09/05/16 08:00 97.3 81 7 88/52 99 09/05/16 06:00 80 09/05/16 04:00 87 09/05/16 04:00 98.9 87 22 104/49 96 09/05/16 02:00 80 09/05/16 00:00 80 09/05/16 00:00 98.7 80 17 97/45 100 09/04/16 22:00 82 09/04/16 20:00 98.5 82 15 107/50 98 09/04/16 20:00 82 09/04/16 19:56 97 Nasal Cannula 4.00 09/04/16 18:00 85 15 89/54 99 09/04/16 18:00 85 09/04/16 17:00 85 16 110/53 96 09/04/16 17:00 85 09/04/16 16:18 83 19 108/54 97 09/04/16 16:18 83 09/04/16 16:00 86 09/04/16 16:00 98.9 86 26 124/60 95 09/05/16 07:00 Intake Total 4430 ml Output Total 85 ml Balance 4345 ml (Giana Craft) Review of Systems/Exam Exam Ms. Patel is awake and oriented to time, place and person. Speech is slow but fluent. Follows commands. Cranial nerve examination: pupils equal, round, and reactive to light. Extra- ocular movements are intact. Facial motor and sensory function are normal and symmetrical. Neck is soft and supple. Motor: moves all four extremities Sensory examination is intact to light touch in both the upper and lower extremities, symmetrically. Bilateral plantar flexion response. (Giana Craft) Medications Current Medications Current Medications Medications (Trade) Dose Ordered Sig/Randy Route PRN Reason Start Time Stop Time Status Last Admin Dose Admin Pantoprazole Sodium 80 mg/ Sodium Chloride 100 ml @ 10 mls/hr Q10H IV 09/03/16 16:00 09/05/16 08:20 Sodium Bicarbonate 150 meq/Dextrose 1,150 ml @ 84 mls/hr [id number] IV 09/03/16 17:00 09/04/16 18:41 Ceftriaxone Sodium 2000 mg/ Sodium Chloride 100 ml @ 200 mls/hr Q12H IV 09/03/16 16:00 Hold 09/04/16 06:11 Rifampin/Sodium Chloride (Rifampin Inj/NS Inj) 100 ml @ 100 mls/hr Q12H IV 09/03/16 18:00 09/05/16 06:00 Bumetanide (Bumex Inj) 1 mg BID@09,18 IV PUSH 09/03/16 18:00 Hold 09/04/16 08:22 Metoprolol Tartrate (Lopressor) 12.5 mg Q12HR PO 09/03/16 21:00 Hold 09/04/16 08:22 Miscellaneous (Pill Splitter) 1 ea UNSCH PRN OTHER SEE LABEL COMMENTS 09/03/16 19:00 Dextrose (D50w (Vial) Inj) 50 ml UNSCH PRN IV HYPOGLYCEMIA-SEE COMMENTS 09/03/16 19:30 Glucagon 1 mg 1 mg UNSCH PRN OTHER HYPOGLYCEMIA-SEE COMMENTS 09/03/16 19:30 Pharmacy Profile Note 0 ml @ 0 mls/hr UNSCH OTHER 09/04/16 11:15 Piperacillin Sod/ Tazobactam Sod 100 ml @ 200 mls/hr Q8H IV 09/04/16 12:00 09/05/16 12:01 Vancomycin HCl/ Sodium Chloride (Vancomycin Inj/ NS 500 ml Inj) 517.5 ml @ 250 mls/hr Q18H IV 09/04/16 14:00 Hold 09/05/16 08:20 Dexamethasone Sodium Phosphate (Decadron Inj) 4 mg Q6HR IV PUSH 09/04/16 18:00 09/05/16 12:00 Fluconazole (Diflucan) 100 mg DAILY PO 09/05/16 15:00 09/12/16 14:59 (Giana Craft) Medical Decision Making MDM Remarks 70 y/o female s/p recent aneurysm coiling 2 weeks ago at [facility], now with Sepsis. CT Head 09/04 shows mass lesion with vasogenic edema, r/o metastatic disease ( Giana Craft) Plan Plan Remarks awaiting MRI Brain w/wo contrast to assess mass lesion request obtain report of aneurysm coil from [facility] by nursing however daughter requesting patient be transferred back to [facility] (Giana Craft) Attending Statement The exam, history, and the medical decision-making described in the above note were completed with the assistance of the mid-level provider. I reviewed and agree with the findings presented. I attest that I had a [id number] encounter with the patient on the same day, and personally performed and documented my assessment and findings in the medical record. (Isaias Briceno MD) Giana Craft September 05, 2016 15:10 Isaias Briceno MD Sep 08, 2016 14:53
[2016-09-05] MEDS: FLUCONAZOLE 100 MG TAB PO SCH (15:55)
[2016-09-05] MEDS ORDERED: GADOBENATE DIM PF 529 MG/ML 20ML VIAL (for RAD MRI) IV ONE (17:11)
[2016-09-05] MEDS: SODIUM BICARBONATE 8.4% INJ 150 MEQ in DEXTROSE 5% IN WATE 1000ML INJ 1,000 ML IV SCH ×2 (17:38)
--- NOTE | 2016-09-05 18:05 | RADRPT ---
EXAM DATE/TIME: 09/05/2016 16:39 [place] COMPARISON: No previous studies available for comparison. INDICATIONS : Mass. CONTRAST: 20 cc MultiHance (gadobenate) IV MEDICAL HISTORY : Cerebrovascular disease. Carcinoma, breast. Carcinoma, colon. Diabetes. CHF. Hypertension. SURGICAL HISTORY : Mastectomy, right. Colon resection. Appendectomy. Mitral valve repair. Brain coiling. ENCOUNTER: Subsequent ACUITY: 3 day PAIN SCORE: 0/10 LOCATION: Head. TECHNIQUE: Multiplanar, multisequence MRI of the brain was performed both prior to and following the administration of paramagnetic contrast. FINDINGS: There is a 1.6 cm enhancing mass in the right occipital region with vasogenic edema wit h some minimal hemorrhage within the mass. This would be consistent with breast cancer metastasis. A second focal area of contrast enhancement is seen in the right cerebellar hemisphere. A third area of abnormal enhancement is seen in the deep periventricular white matter on the left. This measures less than 1 cm. There are minimal scattered areas of dural enhancement that could be evidence for carcinomatosis. There are no extra-axial fluid collections appreciated. There are punctate scattered areas of restricted diffusion in both hemispheres that are suspicious fo r minimal ischemic change. Ventricular size is appropriate. There are no extra-axial fluid collections appreciated. CONCLUSION: At least three small areas of abnormal contrast enhancement as described above that w ould be consistent with metastatic disease. Findings are also suspicious for scattered dural enhance ment that could be indicative of leptomeningeal disease. Lumbar puncture could be used to confirm. Demetrio Lowery MD FACR on September 05, 2016 at 17:40 Board Certified Radiologist. This report was verified electronically.
[2016-09-05] MEDS: BUMETANIDE INJ 100 ML IV SCH (21:56)
[2016-09-05 22:16] LABS: CALCIUM-PROTEIN CORRECTED 8.5 MG/DL (8.5-10.1)
--- NOTE | 2016-09-05 22:28 | MB ---
cc: DUNIA CARCAMO MD DATE OF CONSULTATION: 09/05/2016 REASON FOR CONSULTATION Acute [id number] injury with elevated BUN and creatinine and decreased urine output. HISTORY OF PRESENT ILLNESS This is a 70-year-old female with a past medical history of atrial fibrillation, history of GI bleeding, hypertension, ischemic heart disease, congestive heart failure, history of breast cancer with post mastectomy, colon cancer, was transferred here from [facility]. The patient was at [facility] after she had multiple hospitalizations which shows that she has a right frontal ischemic CVA and then she developed a hemorrhagic stroke after anticoagulation. Because of suspicion of mycotic aneurysm on the CTA, and at that time the patient was septic and also had fever, the patient was transferred to [facility]. The patient was treated for sepsis and bacteremia with MSSA, although the RADHA was negative for endocarditis. The patient has a prolonged course but throughout the hospitalization seems like her kidney function was stable and her creatinine was 0.98 to 0.8 two days ago and started going up from yesterday went up to 1.4 and now is 1.6. The patient transferred here from [facility] because she has hypotension and started having GI bleeding with coffee-ground emesis. The patient is quite confused, not able to give history, most of the history was taken from the patient's chart and some from her [id number] who is sitting at the bedside. PAST MEDICAL HISTORY 1. Hypertension. 2. Hyperlipidemia. 3. Ischemic heart disease. 4. Congestive heart failure. 5. History of recent septic shock. 6. Cerebrovascular accident. 7. Colon cancer. 8. Breast cancer. 9. GI bleeding. PAST SURGICAL HISTORY 1. Post aortic valve replacement in 2005. 2. Appendicectomy. 3. Breast cancer with post mastectomy. 4. Colon resection for colon cancer. REVIEW OF SYSTEMS Review of systems is very limited since she is confused. She denies any shortness of breath, no chest pain. She has no abdominal pain. Has nausea and generalized weakness. SOCIAL HISTORY The patient has a previous history of smoking. There is no history of heavy alcoholism. FAMILY HISTORY Noncontributory. ALLERGIES SHE IS ALLERGIC TO CODEINE AND HALDOL. MEDICATIONS Currently she is on following medications - 1. IV fluid with sodium bicarbonate at 84/hr. 2. Diflucan 100 mg once a day. 3. Protonix infusion. 4. Rifampin 300 mg q.12 hours. 5. Dexamethasone 4 mg q.6 hours. 6. Zosyn 4.5 gram IV q.8 hours. 7. NovoLog sliding scale. PHYSICAL EXAMINATION GENERAL: The patient is awake, alert, she is not fully oriented, not in acute distress. VITAL SIGNS: Her last blood pressure is 104/50, temperature is 97.5, oxygen saturation 99-100%. HEAD, EYES, EARS, NOSE AND THROAT: Pupils equally reacting to light. Nonicteric sclerae. Conjunctivae pale. NECK: Supple. JVD is not elevated. LUNGS: The patient has bilateral decreased air entry with scattered wheezing. HEART: S1, S2. Regular rhythm. ABDOMEN: Abdomen is distended, soft, lax. There is mild epigastric tenderness. There is no rebound or rigidity. Bowel sounds positive. EXTREMITIES: She has 1+ leg edema. INVESTIGATION White blood cell count is 5.7, hemoglobin 7.8, platelet count of 133. Sodium 135, potassium 5.4, chloride 104, bicarb 19, BUN 35, creatinine 1.6, calcium is 7.3, AST/ALT normal, alkaline phosphatase is 177, total protein is 4.8, albumin is 1.6. INR is 1.3. D-dimer 7.4. Urinalysis showing protein of 30. Cultures all negative except the urine culture showing Yeast species. IMAGING STUDIES The patient just had an MRI done, the result is not available. She had thoracentesis done yesterday and 600 mL fluid removed from the right side. CT scan of the brain was done which shows an intracranial mass measuring 1.3 cm surrounded with vasogenic edema. Recommend MRI. CT scan of the abdomen and pelvis done on 09/03 and it shows kidneys are normal size. There is no mass or hydronephrosis. Moderate-sized bilateral pleural effusion. Distension of small bowel, anasarca. ASSESSMENT and PLAN 1. Hypotension and shock status. 2. Acute kidney injury. 3. Metabolic acidosis. 4. GI bleeding with hematemesis. 5. Encephalopathy and confusion. 6. Pleural effusion and pneumonia. 7. Recent history of sepsis. 8. Cerebrovascular accident. The patient has hypotension and most likely the acute kidney injury is related to acute tubular necrosis. I will check the urine sodium osmolality and urine for eosinophils. She is getting IV fluid with sodium bicarbonate. I will also start her on Bumex infusion and follow the urine output. If there is no improvement in the urine output and renal function, then the patient possibly will need dialysis. Thank you for the consultation. I will follow the patient while she is in the hospital. MD RIA Guzman/BJF /5:56 PM /9:51 PM
[2016-09-06] VITALS (15 sets, daily range): BP systolic 110–156; BP diastolic 53–67; PULSE 82–101; RESP 15–26; TEMP 97.3–98.9; O2SAT 92–100
[2016-09-06] MEDS: PIPERACIL-TAZO 4.5 GM PREMIX 100 ML IV SCH ×3 (02:54→21:03)
[2016-09-06] MEDS: PANTOPRAZOLE 80 MG/100 ML NS IV SCH ×2 (02:54)
[2016-09-06 04:58] LABS: AUTOMATED NEUTROPHIL # 5.4 TH/MM3 (1.8-7.7); BASOPHIL % 0.6 % (0.0-2.0); EOSINOPHIL % 0.1 % (0.0-4.0); HEMATOCRIT 27.8 % (35.0-46.0); HEMO FLAGS DIFF FINAL; LYMPH % 13.3 % (9.0-44.0); LYMPHOCYTE # 0.9 TH/MM3 (1.0-4.8); MEAN CELL VOLUME 92.9 FL (80.0-100.0); MEAN CORPUSCULAR HEMOGLOBIN 30.3 PG (27.0-34.0); MEAN CORPUSCULAR HGB CONC 32.6 % (32.0-36.0); MONO % 3.6 % (0.0-8.0); NEUT % 82.4 % (16.0-70.0); PLATELET COUNT 158 TH/MM3 (150-450); RED CELL DISTRIBUTION WIDTH 21.8 % (11.6-17.2); WHITE BLOOD COUNT 6.5 TH/MM3 (4.0-11.0)
[2016-09-06] MEDS: DEXAMETHASONE SOD PHOS 4 MG/ML VIAL IV PUSH SCH ×3 (05:18→16:45)
[2016-09-06 05:28] LABS: ANION GAP 12 MEQ/L (5-15); AST (GOT) 19 U/L (15-37); BICARBONATE 19.2 MEQ/L (21.0-32.0); BLOOD UREA NITROGEN 36 MG/DL (7-18); CHLORIDE 102 MEQ/L (98-107); GLOMERULAR FILTRATION RATE 24 ML/MIN (>89); POTASSIUM 5.1 MEQ/L (3.5-5.1); SODIUM (NA) 133 MEQ/L (136-145)
[2016-09-06 05:30] LABS: ALT (GPT) 11 U/L (10-53)
[2016-09-06 05:32] LABS: ALKALINE PHOSPHATASE 179 U/L (45-117)
[2016-09-06] MEDS: RIFAMPIN INJ 300 MG in SODIUM CHLORIDE 0.9% INJ 100 ML IV SCH ×2 (05:38→16:45)
[2016-09-06] MEDS: SODIUM BICARBONATE 8.4% INJ 150 MEQ in DEXTROSE 5% IN WATE 1000ML INJ 1,000 ML IV SCH ×2 (06:34)
[2016-09-06] MEDS: INSULIN ASPART SUPPLEMENTAL SCALE SQ SCH ×4 (06:49→21:02)
[2016-09-06] MEDS: FLUCONAZOLE 100 MG TAB PO SCH (08:01)
--- NOTE | 2016-09-06 08:55 | PD.CARD.PN ---
Subjective Subjective Remarks Patient awake, somewhat confused Denies chest pain Oriented to place and person, but believes it is 1926 and that she was born in [birth year] Objective Medications Current Medications Medications (Trade) Dose Ordered Sig/Randy Route Start Time Stop Time Status Last Admin Pantoprazole Sodium 80 mg/ Sodium Chloride 100 ml @ 10 mls/hr Q10H IV 09/03/16 16:00 09/06/16 02:54 Sodium Bicarbonate 150 meq/Dextrose 1,150 ml @ 84 mls/hr [id number] IV 09/03/16 17:00 09/06/16 06:34 Ceftriaxone Sodium 2000 mg/ Sodium Chloride 100 ml @ 200 mls/hr Q12H IV 09/03/16 16:00 Hold 09/04/16 06:11 (Rifampin Inj/NS Inj) 100 ml @ 100 mls/hr Q12H IV 09/03/16 18:00 09/06/16 05:38 (Bumex Inj) 1 mg BID@09,18 IV PUSH 09/03/16 18:00 Hold 09/04/16 08:22 (Lopressor) 12.5 mg Q12HR PO 09/03/16 21:00 Hold 09/04/16 08:22 (Pill Splitter) 1 ea UNSCH PRN OTHER 09/03/16 19:00 (D50w (Vial) Inj) 50 ml UNSCH PRN IV 09/03/16 19:30 Glucagon 1 mg 1 mg UNSCH PRN OTHER 09/03/16 19:30 Pharmacy Profile Note 0 ml @ 0 mls/hr UNSCH OTHER 09/04/16 11:15 Piperacillin Sod/ Tazobactam Sod 100 ml @ 200 mls/hr Q8H IV 09/04/16 12:00 09/06/16 02:54 (Vancomycin Inj/ NS 500 ml Inj) 517.5 ml @ 250 mls/hr Q18H IV 09/04/16 14:00 Hold 09/05/16 08:20 (Decadron Inj) 4 mg Q6HR IV PUSH 09/04/16 18:00 09/06/16 05:18 Fluconazole 100 mg 100 mg DAILY PO 09/05/16 15:00 09/12/16 14:59 09/06/16 08:01 (Bumex Inj) 100 ml @ 2 mls/hr CONTINUOUS IV 09/05/16 20:00 09/05/16 21:56 Vital Signs / I&O Vital Signs Date Time Temp Pulse Resp B/P Pulse Ox O2 Delivery O2 Flow Rate FiO2 09/06/16 06:00 92 09/06/16 04:00 98.0 91 20 119/61 94 09/06/16 04:00 91 09/06/16 02:00 97 09/06/16 00:00 97.9 94 22 156/65 96 09/06/16 00:00 94 09/05/16 22:00 82 09/05/16 20:35 95 Nasal Cannula 4.00 09/05/16 20:00 97.7 84 22 106/51 96 09/05/16 20:00 84 09/05/16 18:00 82 09/05/16 16:00 82 09/05/16 16:00 97.9 88 21 86/47 98 09/05/16 12:00 82 09/05/16 12:00 97.5 82 17 104/50 100 09/05/16 10:00 82 I/O 09/05/16 09/05/16 09/05/16 09/06/16 09/06/16 09/06/16 07:00 15:00 23:00 07:00 15:00 23:00 Intake Total 1105 ml 1530 ml 971 ml 1068 ml Output Total 50 ml 30 ml 75 ml 75 ml Balance 1055 ml 1500 ml 896 ml 993 ml Intake Oral 200 ml 300 ml IV Total 1105 ml 1530 ml 771 ml 768 ml Output Urine Total 50 ml 30 ml 75 ml 75 ml Stool Total 0 ml # Bowel Movements 0 0 Physical Exam GENERAL: NAD, awake and alert, oriented to person and place SKIN: Warm and dry. HEAD: Atraumatic. Normocephalic. EYES: Pupils equal and round. No scleral icterus. No injection or drainage. ENT: No nasal bleeding or discharge. Mucous membranes pink and moist. NECK: Trachea midline. No JVD. CARDIOVASCULAR: Irregularly irregular RESPIRATORY: No accessory muscle use. Decreased breath sounds bilaterally GASTROINTESTINAL: Abdomen soft, non-tender, nondistended. Hepatic and splenic margins not palpable. MUSCULOSKELETAL: Extremities without clubbing, cyanosis, or edema. No obvious deformities. NEUROLOGICAL: Awake and alert, confused. Appears to move extremities Laboratory Laboratory Tests Test 509/05/16 09/06/16 18:50 21:00 04:07 Lactic Acid Level 1.0 mmol/L Sodium Level 134 MEQ/L 133 MEQ/L Potassium Level 5.0 MEQ/L 5.1 MEQ/L Chloride Level 103 MEQ/L 102 MEQ/L Carbon Dioxide Level 20.0 MEQ/L 19.2 MEQ/L Anion Gap 11 MEQ/L 12 MEQ/L Blood Urea Nitrogen 36 MG/DL 36 MG/DL Creatinine 1.92 MG/DL 2.01 MG/DL Estimat Glomerular Filtration 26 ML/MIN 24 ML/MIN Rate Random Glucose 168 MG/DL 179 MG/DL Calcium Level 7.3 MG/DL 7.7 MG/DL Protein Corrected Calcium 8.5 MG/DL Total Protein 4.9 GM/DL 5.2 GM/DL White Blood Count 6.5 TH/MM3 Red Blood Count 3.00 MIL/MM3 Hemoglobin 9.1 GM/DL Hematocrit 27.8 % Mean Corpuscular Volume 92.9 FL Mean Corpuscular Hemoglobin 30.3 PG Mean Corpuscular Hemoglobin 32.6 % Concent Red Cell Distribution Width 21.8 % Platelet Count 158 TH/MM3 Mean Platelet Volume 8.3 FL Neutrophils (%) (Auto) 82.4 % Lymphocytes (%) (Auto) 13.3 % Monocytes (%) (Auto) 3.6 % Eosinophils (%) (Auto) 0.1 % Basophils (%) (Auto) 0.6 % Neutrophils # (Auto) 5.4 TH/MM3 Lymphocytes # (Auto) 0.9 TH/MM3 Monocytes # (Auto) 0.2 TH/MM3 Eosinophils # (Auto) 0.0 TH/MM3 Basophils # (Auto) 0.0 TH/MM3 CBC Comment DIFF FINAL Differential Comment Total Bilirubin 1.0 MG/DL Aspartate Amino Transf 19 U/L (AST/SGOT) Alanine Aminotransferase 11 U/L (ALT/SGPT) Alkaline Phosphatase 179 U/L Albumin 1.7 GM/DL Random Vancomycin Level 23.1 COMMENT Assessment and Plan Problem List: (1) Sepsis (2) Encephalopathy (3) Metabolic acidosis (4) Mycotic aneurysm (5) Hemorrhagic cerebrovascular accident (CVA) (6) Ischemic stroke of frontal lobe (7) S/P AVR (8) Diabetes (9) Acute hypoxemic respiratory failure (10) HCAP (healthcare-associated pneumonia) (11) Paroxysmal a-fib (12) NANCY (acute kidney injury) (13) Bilateral pleural effusion (14) MSSA (methicillin susceptible Staphylococcus aureus) septicemia (15) HLD (hyperlipidemia) (16) HTN (hypertension) (17) Anasarca (18) Hematemesis Assessment and Plan 1) History of mechanical aortic valve replacement, previously on Coumadin Had GI bleed with INR 5.8 CVA off Coumadin with hemorrhagic conversion once placed on heparin Hematemesis off anticoagulation with drop in Hgb of 3g Not an anticoagulation candidate, would consider ASA 81mg once ok with neurosurgery/GI 2) Acute confusion, discussed with primary team 3) CHF, will continue diuresis s/p right sided thoracentesis 4) Not a cardiac catheterization candidate, so would not plan on ischemic evaluation 5) Discussed with the family (2 sons and daughter) extensively about not being an anticoagulation candidate and my overall concern for her health with long hospitalization. They understand and agree. They understand that she has been on a down turn for a long period of time Eventually if not turning around, will need palliative care consult to help with decisions 6) Possible metastatic disease noted on the MRI Problem Qualifiers (1) Diabetes: Qualified Code: E11.9 - Type 2 diabetes mellitus without complication, unspecified care home insulin use status (2) HTN (hypertension): Qualified Code: I10 - Essential hypertension (3) Hematemesis: Qualified Code: K92.0 - Hematemesis without nausea Jacky Reyes DO Sep 06, 2016 08:55
--- NOTE | 2016-09-06 10:38 | HHI.PR ---
Subjective Remarks Pt pleasantly confused, tells me that she went to the park w the babies yesterday and this morning. tells me that she ate gritts, eggs and one piece of toast. complains of being stiff and some back pain. denies any CP/SOB/N/V discussed w RN, Pt doesn't have much of an appetite and tells me that pt didn't eat all that. Discussed w Mery, from , and she has reached out to [facility] regarding transfer. Objective Vitals Vital Signs Date Time Temp Pulse Resp B/P Pulse Ox O2 Delivery O2 Flow Rate FiO2 09/06/16 06:00 92 09/06/16 04:00 98.0 91 20 119/61 94 09/06/16 04:00 91 09/06/16 02:00 97 09/06/16 00:00 97.9 94 22 156/65 96 09/06/16 00:00 94 09/05/16 22:00 82 09/05/16 20:35 95 Nasal Cannula 4.00 09/05/16 20:00 97.7 84 22 106/51 96 09/05/16 20:00 84 09/05/16 18:00 82 09/05/16 16:00 82 09/05/16 16:00 97.9 88 21 86/47 98 09/05/16 12:00 82 09/05/16 12:00 97.5 82 17 104/50 100 I/O 09/05/16 09/05/16 09/05/16 09/06/16 09/06/16 09/06/16 07:00 15:00 23:00 07:00 15:00 23:00 Intake Total 1105 ml 1530 ml 971 ml 1068 ml Output Total 50 ml 30 ml 75 ml 75 ml Balance 1055 ml 1500 ml 896 ml 993 ml Intake Oral 200 ml 300 ml IV Total 1105 ml 1530 ml 771 ml 768 ml Output Urine Total 50 ml 30 ml 75 ml 75 ml Stool Total 0 ml # Bowel Movements 0 0 Result Diagram: 09/06/16 0407 09/06/16 0407 Imaging Last Impressions Thoracentesis 09/04/16 1540 Signed Impressions: Service Date/Time: Sunday, September 04, 2016 15:34 - CONCLUSION: 1. Uncomplicated right thoracentesis with removal of 600 mL of clear yellow fluid. There is only a minimal amount of right pleural fluid remaining. 2. Small left pleural effusion. There is also bilateral lower lobe atelectasis and patchy consolidation in the lungs bilaterally. Julian Lua MD Lower Extremity Ultrasound 09/04/16 0000 Signed Impressions: Service Date/Time: Sunday, September 04, 2016 09:34 - CONCLUSION: No evidence of DVT. Rohith Gibson MD Head CT 09/04/16 0000 Signed Impressions: Service Date/Time: Sunday, September 04, 2016 15:22 - CONCLUSION: 1. There appears to be an intracranial mass measuring 1.3 cm surrounded by vasogenic edema high along the right cerebral vertex. In a patient with a previous history of breast cancer, metastatic disease is the primary consideration. Recommend MRI of the brain with and without contrast further evaluation. Rohith Gibson MD Lung Scan-VQ Nuclear Medicine 09/03/16 0000 Signed Impressions: Service Date/Time: Saturday, September 03, 2016 22:02 - CONCLUSION: Low probability for pulmonary embolism. Mikel Ross MD Objective Remarks GENERAL: This is a well-nourished, well-developed patient, nad. CARDIOVASCULAR: Regular rate and rhythm without murmurs RESPIRATORY: Clear to auscultation. Breath sounds equal bilaterally but decreased at the bases. No wheezes GASTROINTESTINAL: Abdomen soft, non-tender, nondistended. No guarding. MUSCULOSKELETAL: Extremities with 1+ edema. able to move her arms and feet, motion limited on her lower extremities due to protective padded boots. NEUROLOGICAL: awake and alert but confused. follows commands 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 Status: Resolved (8) HTN (hypertension) ICD Code: I10 Status: Chronic (9) HLD (hyperlipidemia) ICD Code: E78.5 Status: Chronic (10) MSSA (methicillin susceptible Staphylococcus aureus) septicemia ICD Code: A41.01 Status: Chronic (11) NANCY (acute kidney injury) ICD Code: N17.9 Status: Acute (12) HCAP (healthcare-associated pneumonia) ICD Code: J18.9 Status: Acute (13) S/P AVR ICD Code: Z95.2 Status: Chronic (14) Anasarca ICD Code: R60.1 Status: Acute (15) Acute hypoxemic respiratory failure ICD Code: J96.01 Status: Acute (16) Lower extremity pain, bilateral ICD Code: M79.604 Status: Acute (17) Diabetes ICD Code: E11.9 Status: Acute (18) Ileus ICD Code: K56.7 Status: Acute Assessment and Plan (1) Sepsis Present on admission - patient with hr > 93 and RR > 20, now has elevated temp 100.3 F Patient previously on Rocephin and Azithromycin for treatment of HCAP. Continue IV Vancomycin and IV Zosyn, diflucan UA (+), Urine culture - yeast species. ID Consult pending Blood culture negative x1 (2) Encephalopathy Likely metabolic encephalopathy from sepsis. 09/05 CT showed possible mass. Neurosurgery consulted, recommended MRI of the brain. MRI of the brain showed at least 3 small areas of abnormal contrast enhancement that would be consistent w metastatic disease. ? leptomeningeal disease. Patient is much more awake and alert today, encephalopathy seems to be resolving although she is still pleasantly confused, i.e thinks she was in a park w children. (3) Hematemesis CT abdomen and pelvis is suggestive of ileus, no BMs recorded. EGD to be done by GI. Hb 9.1 today. Transfuse for hemoglobin less than 7, or less than 8 if the patient is actively bleeding. Goal hemoglobin more than 9. (4) Metabolic acidosis Bicarbonate was very low on admission. Continue bicarbonate drip. (5) Bilateral pleural effusion IR consulted for right-sided the therapeutic thoracentesis. 2-D echo shows mild LVH. Estimated ejection fractions in the range of 55-60%. There is no regional wall motion abnormality. Bileaflet aortic valve prosthesis present. Hold diuretics given worsening creatinine. (6) Paroxysmal a-fib metoprolol placed on hold initially given borderline hypotension. resume with parameters (7) Mycotic aneurysm Sp coiling. (8) HTN (hypertension) monitor. resumed BB (9) HLD (hyperlipidemia) Lipid profile shows a cholesterol of 68 and LDL cholesterol 26, while under control. Continue statin. (10) MSSA (methicillin susceptible Staphylococcus aureus) septicemia Previously on Rocephin and Azithromycin. Continue IV antibiotics as per ID, now on vancomycin and IV Zosyn fu blood cultures - negative so far infectious disease recommendations (11) NANCY (acute kidney injury) Patient's creatinine seems to be worsening. Up to 2.01 Continue IV fluids nephrology followin Monitor BUN/creatinine, strict I's and O's, avoid nephrotoxins ct abd and pelvis done on 09/03 did not show hydronephrosis. (12) HCAP (healthcare-associated pneumonia) Antibiotics as above. fu Id recommendations (13) S/P AVR To the echocardiogram as mentioned above. Mechanical aVR 13 years ago. per cards, pt is not a good anticoagulation candidate and this makes her long- term prognosis very poor. (14) Anasarca Follow-up strict input and output. Continue to hold diuretics (15) Acute hypoxemic respiratory failure Likely due to PNA and HCAP. Patient on ventimask 09/03 down to 4 liters nasal canula. VQ scan low probability for PE. 09/05 Improving respiratory failure - Patient now on 4 liters nasal canula. (16) Lower extremity pain, bilateral DVT ruled out with bilat venous doppler. (17) Diabetes Continue to hold metformin. Blood sugars seem to be stable. Continue SSI with insulin novolog, continue to monitor accuchecks. (18) Ileus As shown on CT described above. GI following. Placed on liquid diet Patient is passing gas but still has abdominal pain Assessment and Plan GI prophylaxis - continue protonix drip dvt prophylaxis - SCD's Discharge Planning CM working on transferring pt back to [facility] Problem Qualifiers (1) Hematemesis: Qualified Code: K92.0 - Hematemesis without nausea (2) HTN (hypertension): Qualified Code: I10 - Essential hypertension (3) Diabetes: Qualified Code: E11.9 - Type 2 diabetes mellitus without complication, unspecified [facility] insulin use status Grisel Thurman MD Sep 06, 2016 10:38 Plan: Likely due to PNA and HCAP. Patient on ventimask 09/03 down to 4 liters nasal canula. VQ scan low probability for PE. 09/05 Improving respiratory failure - Patient now on 4 liters nasal canula. (16) Lower extremity pain, bilateral ICD Code: M79.604 Status: Acute Plan: Bilateral lower extremity pain on exam. DVT ruled out with bilat venous doppler. (17) Diabetes ICD Code: E11.9 Status: Acute Plan: Continue to hold metformin. Blood sugars seem to be stable. Continue SSI with insulin novolog, continue to monitor accuchecks. (18) Ileus ICD Code: K56.7 Status: Acute Plan: As shown on CT described above. GI following. Placed on liquid diet Patient is passing gas but still has abdominal pain Assessment and Plan GI prophylaxis - continue protonix drip dvt prophylaxis - SCD's Discharge Planning Continue to monitor in the intensive care unit. Problem Qualifiers (1) Hematemesis: Qualified Code: K92.0 - Hematemesis without nausea (2) HTN (hypertension): Qualified Code: I10 - Essential hypertension (3) Diabetes: Qualified Code: E11.9 - Type 2 diabetes mellitus without complication, unspecified director long term care insulin use status Grisel Thurman MD Sep 06, 2016 10:38
[2016-09-06] MEDS: PANTOPRAZOLE SODIUM 40 MG VIAL IV PUSH SCH ×2 (11:29→21:03)
--- NOTE | 2016-09-06 12:16 | HHI.NPPN ---
Subjective History of Present Illness 70-year-old female with a past medical history of atrial fibrillation, history of GI bleeding, hypertension, ischemic heart disease, congestive heart failure, history of breast cancer with post mastectomy, colon cancer, was transferred here from [facility]. I was called for elevated BUN/Creatinine and decrease urine out put. Additional Remarks Patient is awake, but confused, with nasal cannula, not in distress. Objective Data Data 09/05/16 09/06/16 19:00 07:00 Intake Total 1530 ml 2039 ml Output Total 30 ml 150 ml Balance 1500 ml 1889 ml Intake Oral 500 ml IV Total 1530 ml 1539 ml Output Urine Total 30 ml 150 ml Stool Total 0 ml # Bowel Movements 0 Vital Signs Date Time Temp Pulse Resp B/P Pulse Ox O2 Delivery O2 Flow Rate FiO2 09/06/16 10:00 90 09/06/16 08:00 89 09/06/16 08:00 97.9 82 26 118/54 09/06/16 06:00 92 09/06/16 04:00 98.0 91 20 119/61 94 09/06/16 04:00 91 09/06/16 02:00 97 09/06/16 00:00 97.9 94 22 156/65 96 09/06/16 00:00 94 09/05/16 22:00 82 09/05/16 20:35 95 Nasal Cannula 4.00 09/05/16 20:00 97.7 84 22 106/51 96 09/05/16 20:00 84 09/05/16 18:00 82 09/05/16 16:00 82 09/05/16 16:00 97.9 88 21 86/47 98 -: 09/06/16 0407 09/06/16 0407 Physical Exam General Appearance: No Acute Distress, Anxious Eyes Eye Exam: Pupils Equal Throat Throat Exam: Oral Mucosa [place] & Moist Neck Neck Exam: Neck Supple Pulmonary Resp Exam: No Distress, Rhonchi, Decreased Bases, Diminished Breath Sounds Cardiology CV Exam: Regular, Normal Sinus Rhythm Gastrointestinal/Abdomen GI Exam: Soft, Non-Tender, Distended Extremeties Extremities Exam: Moderate Edema, Pitting Edema Neurologic Neuro Exam: Alert, Awake Assessment/Plan Assessment Summary: NANCY/Acute Renal Failure Electrolyte Assessment: Metabolic Acidosis Problem List: (1) Hemorrhagic stroke (2) Diabetes (3) Paroxysmal a-fib (4) Anemia (5) Obesity (6) Hematemesis (7) Encephalopathy (8) NANCY (acute kidney injury) Plan Patient has low urine out put. Not much response to Bumex, now on infusion. Creatinine increase slightly. BP is better, decrease IVF. Results of MRI noted. No urgent need for Dialysis. If no improvement, will need Dialysis. Most likely has ATN causing NANCY. Problem Qualifiers (1) Hematemesis: Qualified Code: K92.0 - Hematemesis without nausea Sachin Winters MD Sep 06, 2016 12:16
--- NOTE | 2016-09-06 13:29 | HHI.GIFU ---
Subjective Remarks Pt lethargic today. Per RN she is to be transferred to [place]. She is tolerating clears and some grits. No bleeding since initial episode hematemesis. (Shanthi Mckoy) Objective Vitals I&O Vital Signs Date Time Temp Pulse Resp B/P Pulse Ox O2 Delivery O2 Flow Rate FiO2 09/06/16 12:28 94 Nasal Cannula 5.00 09/06/16 12:00 91 09/06/16 12:00 97.8 87 18 112/57 100 09/06/16 10:00 90 09/06/16 08:00 89 09/06/16 08:00 97.9 82 26 118/54 09/06/16 06:00 92 09/06/16 04:00 98.0 91 20 119/61 94 09/06/16 04:00 91 09/06/16 02:00 97 09/06/16 00:00 97.9 94 22 156/65 96 09/06/16 00:00 94 09/05/16 22:00 82 09/05/16 20:35 95 Nasal Cannula 4.00 09/05/16 20:00 97.7 84 22 106/51 96 09/05/16 20:00 84 09/05/16 18:00 82 09/05/16 16:00 82 09/05/16 16:00 97.9 88 21 86/47 98 I/O 09/05/16 09/05/16 09/05/16 09/06/16 09/06/16 09/06/16 07:00 15:00 23:00 07:00 15:00 23:00 Intake Total 1105 ml 1530 ml 971 ml 1068 ml Output Total 50 ml 30 ml 75 ml 75 ml Balance 1055 ml 1500 ml 896 ml 993 ml Intake Oral 200 ml 300 ml IV Total 1105 ml 1530 ml 771 ml 768 ml Output Urine Total 50 ml 30 ml 75 ml 75 ml Stool Total 0 ml # Bowel Movements 0 0 Laboratory Laboratory Tests Test 09/05/16 09/05/16 09/06/16 18:50 21:00 04:07 Lactic Acid Level 1.0 Sodium Level 134 133 Potassium Level 5.0 5.1 Chloride Level 103 102 Carbon Dioxide Level 20.0 19.2 Anion Gap 11 12 Blood Urea Nitrogen 36 36 Creatinine 1.92 2.01 Estimat Glomerular Filtration 26 24 Rate Random Glucose 168 179 Calcium Level 7.3 7.7 Protein Corrected Calcium 8.5 Total Protein 4.9 5.2 White Blood Count 6.5 Red Blood Count 3.00 Hemoglobin 9.1 Hematocrit 27.8 Mean Corpuscular Volume 92.9 Mean Corpuscular Hemoglobin 30.3 Mean Corpuscular Hemoglobin 32.6 Concent Red Cell Distribution Width 21.8 Platelet Count 158 Mean Platelet Volume 8.3 Neutrophils (%) (Auto) 82.4 Lymphocytes (%) (Auto) 13.3 Monocytes (%) (Auto) 3.6 Eosinophils (%) (Auto) 0.1 Basophils (%) (Auto) 0.6 Neutrophils # (Auto) 5.4 Lymphocytes # (Auto) 0.9 Monocytes # (Auto) 0.2 Eosinophils # (Auto) 0.0 Basophils # (Auto) 0.0 CBC Comment DIFF FINAL Differential Comment Total Bilirubin 1.0 Aspartate Amino Transf 19 (AST/SGOT) Alanine Aminotransferase 11 (ALT/SGPT) Alkaline Phosphatase 179 Albumin 1.7 Random Vancomycin Level 23.1 Date/Time Procedure Status Source Growth 09/04/16 16:00 Gram Stain - Final Resulted Fluid Pleural Fluid 09/04/16 16:00 Body Fluid Culture - Preliminary Resulted Fluid Pleural Fluid NO GROWTH IN 48 HOURS. 09/04/16 11:57 Aerobic Blood Culture - Preliminary Resulted Blood Peripheral NO GROWTH IN 2 DAYS 09/04/16 11:57 Anaerobic Blood Culture - Preliminary Resulted Blood Peripheral NO GROWTH IN 2 DAYS 09/04/16 05:50 MRSA Surveillance Culture - Preliminary Resulted Nasopharyngeal 09/03/16 20:40 Urine Culture - Preliminary Resulted Urine Catheterized Urine Yeast Species 09/03/16 16:00 Gram Stain Received Fluid Pleural Fluid Pending 09/03/16 16:00 Body Fluid Culture Received Fluid Pleural Fluid Pending Imaging Last Impressions Thoracentesis 09/04/16 1540 Signed Impressions: Service Date/Time: Sunday, September 04, 2016 15:34 - CONCLUSION: 1. Uncomplicated right thoracentesis with removal of 600 mL of clear yellow fluid. There is only a minimal amount of right pleural fluid remaining. 2. Small left pleural effusion. There is also bilateral lower lobe atelectasis and patchy consolidation in the lungs bilaterally. Julian Lua MD Lower Extremity Ultrasound 09/04/16 0000 Signed Impressions: Service Date/Time: Sunday, September 04, 2016 09:34 - CONCLUSION: No evidence of DVT. Rohith Gibson MD Head CT 09/04/16 0000 Signed Impressions: Service Date/Time: Sunday, September 04, 2016 15:22 - CONCLUSION: 1. There appears to be an intracranial mass measuring 1.3 cm surrounded by vasogenic edema high along the right cerebral vertex. In a patient with a previous history of breast cancer, metastatic disease is the primary consideration. Recommend MRI of the brain with and without contrast further evaluation. Rohith Gibson MD Lung Scan-VQ Nuclear Medicine 09/03/16 0000 Signed Impressions: Service Date/Time: Saturday, September 03, 2016 22:02 - CONCLUSION: Low probability for pulmonary embolism. Mikel Ross MD Physical Exam HEENT: normocephalic; atraumatic; no jaundice. CHEST: rhonchi CARDIAC: Regular rate and rhythm with click ABDOMEN: Soft, distended, nontender; no hepatosplenomegaly; bowel sounds hypoactive in all four quadrants. EXTREMITIES: No clubbing, cyanosis, generalized edema. SKIN: Normal; no rash; no jaundice. COMPUTATIONAL GENETICIST: lethargic. (Shanthi Mckoy) Assessment and Plan Plan ASSESSMENT - abdominal pain - seems improved. pt unable to contribute history ? ileus CT --> relatively diffuse distention small bowel and colon, poss representing ileus. there are few decompressed segments of small bowel but no clear pattern is present to indicate small bowel obstruction, small volume free fluid abd and pelvis KUB 09-03-16 --> abnormal bowel gas pattern with mild diffuse distention of small bowel and colon, no transition point appreciated suggesting ileus as potential cause - hematemesis - none currently. episode of 2 d of coffee ground appearance. pos hemoccult. HH stable. Has hx GIB and had EGD/colonoscopy last month? and no source bleeding found per EMR. - abnormal CT head- intracranial mass PLAN - continue protonix - LISANDRA - monitor HH - transfuse if necessary - supportive care - Pt being transferred to [place], GI will sign off. This pt seen by myself and Dr Eduardo and this note is written on his behalf. ( Shanthi Mckoy) Physician Comments Seen and examined, plan as above, please notify us if needed. (Ingrid Eduardo MD) Shanthi Mckoy Sep 06, 2016 13:28 Ingrid Eduardo MD Sep 06, 2016 21:56
--- NOTE | 2016-09-06 15:14 | HHI.IDPN ---
Subjective Subjective Remarks Patient is a 70-year-old female, transferred from [facility] to the [facility] after she had coffee ground emesis, and hypoxemia. Patient was initially at [facility] with an acute GI bleed back in July 2016. She had a very high pro-time, and she had been on Coumadin for her atrial fibrillation and aVR. GI workup at that time did not reveal any active source of bleeding. 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 She was started on anticoagulation, and had hemorrhagic conversion of her stroke. She underwent CTA and finding showed suggestion of mycotic aneurysm. She apparently developed sepsis at that time and required pressors for shock, she was intubated. She was subsequently transferred to the [facility] on August 12, and underwent coiling. 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 RADHA however did not show any vegetation in any of her valves. She subsequently improved and got extubated. She was transferred to [facility] for comprehensive rehabilitation on August 28, 2016. Infectious disease recommendation at that time is for her to complete Rocephin and rifampin September. While at [place], she was doing rehabilitation. She's had some problem with lethargy. On the day of admission she apparently had nausea and vomiting and had some abdominal pain and some chest pain. She had coffee ground emesis. Her O2 saturation at that time was in the 70s, and she appeared dyspneic. She was therefore admitted to the [facility] hospital for closer monitoring and further evaluation and treatment. While at [place] she had 2 units of packed RBC that was transfused. Her hemoglobin was staying around 10, and on the day of admission it was down to 8. She's had some low-grade temps. According to the nurse she's been very lethargic this morning. Patient just came back from the radiology department for she had thoracenteses as well as CT of the head. Patient currently is on nasal O2. She is not on any pressors. Monitor shows atrial fibrillation. CT of the abdomen and pelvis showed possible ileus, and she had evidence of bilateral pleural effusion and consolidation. She also had a urinalysis which showed some pyuria. Patient's urine output has been low, and her creatinine had gone up to 1.44. It was 0.8 previously. Infectious disease consultation has been requested to evaluate patient with multiple problems including sepsis, UTI, possible pneumonia. Notes reviewed Temps ok She is awake and alert - states she is just waking up Wants a cup of coffee Not SOB UO low Neurosurgery notes reviewed - CT head with ?mass; wants patient to go to [facility] working on it UC with yeast BC negative Pleural fluid C/S negative Antibiotics Vanco - on hold Zosyn Rifampin Past Medical History Reviewed Allergies: Coded Allergies: Codeine (Verified Allergy, Unknown, 08/27/16) Haldol (Verified Allergy, Unknown, 08/27/16) Objective . Vital Signs Date Time Temp Pulse Resp B/P Pulse Ox O2 Delivery O2 Flow Rate FiO2 09/06/16 14:00 95 09/06/16 12:28 94 Nasal Cannula 5.00 09/06/16 12:00 91 09/06/16 12:00 97.8 87 18 112/57 100 09/06/16 10:00 90 09/06/16 08:00 89 09/06/16 08:00 97.9 82 26 118/54 09/06/16 06:00 92 09/06/16 04:00 98.0 91 20 119/61 94 09/06/16 04:00 91 09/06/16 02:00 97 09/06/16 00:00 97.9 94 22 156/65 96 09/06/16 00:00 94 09/05/16 22:00 82 09/05/16 20:35 95 Nasal Cannula 4.00 09/05/16 20:00 97.7 84 22 106/51 96 09/05/16 20:00 84 09/05/16 18:00 82 09/05/16 16:00 82 09/05/16 16:00 97.9 88 21 86/47 98 09/05/16 09/05/16 09/06/16 15:00 23:00 07:00 Intake Total 1530 ml 971 ml 1068 ml Output Total 30 ml 75 ml 75 ml Balance 1500 ml 896 ml 993 ml Intake Oral 200 ml 300 ml IV Total 1530 ml 771 ml 768 ml Output Urine Total 30 ml 75 ml 75 ml Stool Total 0 ml # Bowel Movements 0 . Laboratory Tests Test 09/04/16 09/05/16 09/06/16 19:10 04:30 04:07 White Blood Count 7.6 TH/MM3 5.7 TH/MM3 6.5 TH/MM3 Red Blood Count 2.80 MIL/MM3 2.70 MIL/MM3 3.00 MIL/MM3 Hemoglobin 8.2 GM/DL 7.8 GM/DL 9.1 GM/DL Hematocrit 25.6 % 25.0 % 27.8 % Mean Corpuscular Volume 91.5 FL 92.8 FL 92.9 FL Mean Corpuscular Hemoglobin 29.4 PG 28.8 PG 30.3 PG Mean Corpuscular Hemoglobin 32.1 % 31.0 % 32.6 % Concent Red Cell Distribution Width 21.0 % 21.4 % 21.8 % Platelet Count 149 TH/MM3 133 TH/MM3 158 TH/MM3 Mean Platelet Volume 7.9 FL 8.1 FL 8.3 FL Neutrophils (%) (Auto) 84.5 % 82.4 % Lymphocytes (%) (Auto) 12.4 % 13.3 % Monocytes (%) (Auto) 2.4 % 3.6 % Eosinophils (%) (Auto) 0.1 % 0.1 % Basophils (%) (Auto) 0.6 % 0.6 % Neutrophils # (Auto) 4.8 TH/MM3 5.4 TH/MM3 Lymphocytes # (Auto) 0.7 TH/MM3 0.9 TH/MM3 Monocytes # (Auto) 0.1 TH/MM3 0.2 TH/MM3 Eosinophils # (Auto) 0.0 TH/MM3 0.0 TH/MM3 Basophils # (Auto) 0.0 TH/MM3 0.0 TH/MM3 CBC Comment DIFF FINAL DIFF FINAL Differential Comment Laboratory Tests Test 09/04/16 09/05/16 09/05/16 09/05/16 19:10 04:30 18:50 21:00 Sodium Level 133 MEQ/L 135 MEQ/L 134 MEQ/L Potassium Level 5.1 MEQ/L 5.4 MEQ/L 5.0 MEQ/L Chloride Level 104 MEQ/L 104 MEQ/L 103 MEQ/L Carbon Dioxide Level 18.4 MEQ/L 19.0 MEQ/L 20.0 MEQ/L Anion Gap 11 MEQ/L 12 MEQ/L 11 MEQ/L Blood Urea Nitrogen 34 MG/DL 35 MG/DL 36 MG/DL Creatinine 1.53 MG/DL 1.66 MG/DL 1.92 MG/DL Estimat Glomerular Filtration 33 ML/MIN 30 ML/MIN 26 ML/MIN Rate Random Glucose 113 MG/DL 133 MG/DL 168 MG/DL Calcium Level 7.2 MG/DL 7.3 MG/DL 7.3 MG/DL Protein Corrected Calcium 8.5 MG/DL 8.6 MG/DL 8.5 MG/DL Total Bilirubin 1.1 MG/DL 0.9 MG/DL Aspartate Amino Transf 18 U/L 18 U/L (AST/SGOT) Alanine Aminotransferase 10 U/L 10 U/L (ALT/SGPT) Alkaline Phosphatase 187 U/L 177 U/L Troponin I 0.05 NG/ML Total Protein 4.8 GM/DL 4.8 GM/DL 4.9 GM/DL Albumin 1.6 GM/DL 1.6 GM/DL Phosphorus Level 4.0 MG/DL Magnesium Level 1.6 MG/DL Lactic Acid Level 1.0 mmol/L Test 09/06/16 04:07 Sodium Level 133 MEQ/L Potassium Level 5.1 MEQ/L Chloride Level 102 MEQ/L Carbon Dioxide Level 19.2 MEQ/L Anion Gap 12 MEQ/L Blood Urea Nitrogen 36 MG/DL Creatinine 2.01 MG/DL Estimat Glomerular Filtration 24 ML/MIN Rate Random Glucose 179 MG/DL Calcium Level 7.7 MG/DL Total Bilirubin 1.0 MG/DL Aspartate Amino Transf 19 U/L (AST/SGOT) Alanine Aminotransferase 11 U/L (ALT/SGPT) Alkaline Phosphatase 179 U/L Total Protein 5.2 GM/DL Albumin 1.7 GM/DL Microbiology Date/Time Procedure Status Source Growth 09/03/16 16:00 Gram Stain Received Fluid Pleural Fluid Pending 09/03/16 16:00 Body Fluid Culture Received Fluid Pleural Fluid Pending 09/03/16 20:40 Urine Culture - Final Complete Urine Catheterized Urine Lauren Species 09/04/16 05:50 MRSA Surveillance Culture - Preliminary Resulted Nasopharyngeal 09/04/16 11:52 Aerobic Blood Culture - Preliminary Resulted Blood Peripheral NO GROWTH IN 2 DAYS 09/04/16 11:52 Anaerobic Blood Culture - Preliminary Resulted Blood Peripheral NO GROWTH IN 2 DAYS 09/04/16 11:57 Aerobic Blood Culture - Preliminary Resulted Blood Peripheral NO GROWTH IN 2 DAYS 09/04/16 11:57 Anaerobic Blood Culture - Preliminary Resulted Blood Peripheral NO GROWTH IN 2 DAYS 09/04/16 16:00 Gram Stain - Final Resulted Fluid Pleural Fluid 09/04/16 16:00 Body Fluid Culture - Preliminary Resulted Fluid Pleural Fluid NO GROWTH IN 48 HOURS. Imaging Last Impressions Thoracentesis 09/04/16 1540 Signed Impressions: Service Date/Time: Sunday, September 04, 2016 15:34 - CONCLUSION: 1. Uncomplicated right thoracentesis with removal of 600 mL of clear yellow fluid. There is only a minimal amount of right pleural fluid remaining. 2. Small left pleural effusion. There is also bilateral lower lobe atelectasis and patchy consolidation in the lungs bilaterally. Julian Lua MD Lower Extremity Ultrasound 09/04/16 0000 Signed Impressions: Service Date/Time: Sunday, September 04, 2016 09:34 - CONCLUSION: No evidence of DVT. Rohith Gibson MD Head CT 09/04/16 0000 Signed Impressions: Service Date/Time: Sunday, September 04, 2016 15:22 - CONCLUSION: 1. There appears to be an intracranial mass measuring 1.3 cm surrounded by vasogenic edema high along the right cerebral vertex. In a patient with a previous history of breast cancer, metastatic disease is the primary consideration. Recommend MRI of the brain with and without contrast further evaluation. Rohith Gibson MD Lung Scan- Nuclear Medicine 09/03/16 0000 Signed Impressions: Service Date/Time: Saturday, September 03, 2016 22:02 - CONCLUSION: Low probability for pulmonary embolism. Mikel Ross MD Physical Exam GENERAL: awake and alert, not in respiratory distress. SKIN: Warm and dry. No generalized rash, no ecchymoses and no evidence of embolic lesions. HEAD: Atraumatic. Normocephalic. No temporal wasting, or tenderness. EYES: [place] conjunctiva. Has scleral hemorrhage on R, and has scleral edema. Pupils equal, round and reactive to light. Moist oral mucosa EARS, NOSE AND THROAT: Nose without bleeding or purulent nasal discharge. Moist oral mucosa. NECK: Trachea midline. Supple and not tender, no meningeal signs CARDIOVASCULAR: Irregular rate and rhythm. Has a harsh systolic murmur heard at base of the heart, no rub. RESPIRATORY: Coarse breath sounds bilaterally. No rales, wheezing or rhonchi. Decreased at bases ABDOMEN: Globular and distended, has a large incisional/ventral hernia, has diffuse tenderness, no guarding or rebound, bowel sounds present and hypoactive. EXTREMITIES: No clubbing, cyanosis. Both feet cool to touch, no mottling. , Skin tight both LE. No calf tenderness. NEUROLOGICAL: No facial asymmetry, full EOM, tongue midline. Equal motor strength PSYCHIATRIC: Calm and cooperative LINE: No evidence of infection : Ruiz in place, clear yellow urine Assessment & Plan Remarks IMPRESSION Sepsis, source? - has UTI - ?new PNA, ?aspiration - on Rx for MSSA sepsis, and presumed PVE, AVR, RADHA negative - has ileus Recurrent GIB CVA, S/P coiling of aneurysm Chronic atrial fib S/P AVR 2006 Renal insufficiency, ?due to sepsis RECOMMENDATION Continue Vanco - depending on levels Continue Zosyn Continue Diflucan Follow C/S Monitor progress CM working on possible transfer to [place] per neurosurgery D/W Mary Kelley MD Sep 06, 2016 15:14
[2016-09-06] MEDS ORDERED: PHARMACY ORDERED LAB ONE (19:45)
[2016-09-07] VITALS (24 sets, daily range): BP systolic 114–167; BP diastolic 55–110; PULSE 81–104; RESP 12–36; TEMP 97.7–98.9; O2SAT 83–100
[2016-09-07] MEDS: DEXAMETHASONE SOD PHOS 4 MG/ML VIAL IV PUSH SCH ×5 (00:43→23:56)
[2016-09-07] MEDS: SODIUM BICARBONATE 8.4% INJ 150 MEQ in DEXTROSE 5% IN WATE 1000ML INJ 1,000 ML IV SCH ×4 (02:22→23:56)
[2016-09-07] MEDS: PIPERACIL-TAZO 4.5 GM PREMIX 100 ML IV SCH ×3 (02:57→21:11)
[2016-09-07 04:19] LABS: REVIEW FLAG FINAL
[2016-09-07 04:51] LABS: BICARBONATE 22.9 MEQ/L (21.0-32.0); POTASSIUM 4.7 MEQ/L (3.5-5.1)
[2016-09-07] MEDS: RIFAMPIN INJ 300 MG in SODIUM CHLORIDE 0.9% INJ 100 ML IV SCH ×2 (05:02→17:17)
[2016-09-07 05:16] LABS: CALCIUM-PROTEIN CORRECTED 8.3 MG/DL (8.5-10.1)
[2016-09-07] MEDS: INSULIN ASPART SUPPLEMENTAL SCALE SQ SCH ×4 (06:30→21:00)
[2016-09-07] MEDS: PANTOPRAZOLE SODIUM 40 MG VIAL IV PUSH SCH ×2 (08:37→21:10)
[2016-09-07] MEDS: FLUCONAZOLE 100 MG TAB PO SCH (08:37)
--- NOTE | 2016-09-07 11:05 | HHI.NPPN ---
Subjective History of Present Illness 70-year-old female with a past medical history of atrial fibrillation, history of GI bleeding, hypertension, ischemic heart disease, congestive heart failure, history of breast cancer with post mastectomy, colon cancer, was transferred here from [facility]. I was called for elevated BUN/Creatinine and decrease urine out put. Additional Remarks Patient is awake, remain confused, with nasal cannula, not in distress, clinically same. Objective Data Data 09/06/16 09/07/16 19:00 07:00 Intake Total 1400 ml 1419 ml Output Total 75 ml 250 ml Balance 1325 ml 1169 ml Intake Oral 375 ml IV Total 1400 ml 1044 ml Output Urine Total 75 ml 250 ml Stool Total 0 ml # Bowel Movements 0 Vital Signs Date Time Temp Pulse Resp B/P Pulse Ox O2 Delivery O2 Flow Rate FiO2 09/07/16 09:00 82 09/07/16 09:00 82 19 126/56 97 09/07/16 08:00 81 09/07/16 08:00 97.8 81 15 116/55 97 09/07/16 07:00 82 09/07/16 06:00 84 09/07/16 04:00 88 09/07/16 04:00 98.3 88 20 114/56 99 09/07/16 02:00 86 09/07/16 00:00 98.9 85 20 134/65 99 09/07/16 00:00 85 09/06/16 22:00 92 09/06/16 20:35 95 Nasal Cannula 1.00 09/06/16 20:00 98 09/06/16 20:00 98.9 98 20 123/67 93 09/06/16 18:00 101 09/06/16 17:18 92 1.00 09/06/16 16:00 97.3 86 15 110/53 100 09/06/16 16:00 91 09/06/16 14:00 95 09/06/16 12:28 94 Nasal Cannula 5.00 09/06/16 12:00 91 09/06/16 12:00 97.8 87 18 112/57 100 -: 09/07/16 0346 09/07/16 0346 Physical Exam General Appearance: No Acute Distress, Anxious Eyes Eye Exam: Pupils Equal Throat Throat Exam: Oral Mucosa [place] & Moist Neck Neck Exam: Neck Supple Pulmonary Resp Exam: No Distress, Rhonchi, Decreased Bases, Diminished Breath Sounds Cardiology CV Exam: Regular, Normal Sinus Rhythm Gastrointestinal/Abdomen GI Exam: Soft, Non-Tender, Distended Extremeties Extremities Exam: Moderate Edema, Pitting Edema Neurologic Neuro Exam: Alert, Awake Assessment/Plan Assessment Summary: NANCY/Acute Renal Failure Electrolyte Assessment: Metabolic Acidosis Problem List: (1) Hemorrhagic stroke (2) Diabetes (3) Paroxysmal a-fib (4) Anemia (5) Obesity (6) Hematemesis (7) Encephalopathy (8) NANCY (acute kidney injury) Plan Patient has some improvement in the urine out put. On Bumex infusion. Creatinine almost same. BP is better, on IVF with NaHco3. Results of MRI noted. No urgent need for Dialysis. Most likely has ATN causing NANCY. Continue Bumex, follow urine out put and BMP. Given Vanco. today, follow the level. Problem Qualifiers (1) Diabetes: (2) Hematemesis: Qualified Code: K92.0 - Hematemesis without nausea Sachin Winters MD Sep 07, 2016 11:05
--- NOTE | 2016-09-07 14:06 | HHI.PR ---
Subjective Remarks Pt states she feels ok today. back pain improved. no nausea or vomiting. daughter in law at the time was not in the room Objective Vitals Vital Signs Date Time Temp Pulse Resp B/P Pulse Ox O2 Delivery O2 Flow Rate FiO2 09/07/16 13:00 86 09/07/16 12:00 84 09/07/16 12:00 97.7 84 22 120/56 95 09/07/16 11:00 88 23 128/58 95 09/07/16 11:00 88 09/07/16 10:00 86 12 125/74 99 09/07/16 10:00 86 09/07/16 09:29 99 Nasal Cannula 4.00 09/07/16 09:00 82 09/07/16 09:00 82 19 126/56 97 09/07/16 09:00 82 19 126/56 97 09/07/16 08:00 81 09/07/16 08:00 97.8 81 15 116/55 97 09/07/16 07:00 82 09/07/16 06:00 84 09/07/16 04:00 88 09/07/16 04:00 98.3 88 20 114/56 99 09/07/16 02:00 86 09/07/16 00:00 98.9 85 20 134/65 99 09/07/16 00:00 85 09/06/16 22:00 92 09/06/16 20:35 95 Nasal Cannula 1.00 09/06/16 20:00 98 09/06/16 20:00 98.9 98 20 123/67 93 09/06/16 18:00 101 09/06/16 17:18 92 1.00 09/06/16 16:00 97.3 86 15 110/53 100 09/06/16 16:00 91 I/O 09/06/16 09/06/16 09/06/16 09/07/16 09/07/16 09/07/16 07:00 15:00 23:00 07:00 15:00 23:00 Intake Total 1068 ml 1400 ml 792 ml 627 ml Output Total 75 ml 75 ml 100 ml 150 ml Balance 993 ml 1325 ml 692 ml 477 ml Intake Oral 300 ml 300 ml 75 ml IV Total 768 ml 1400 ml 492 ml 552 ml Output Urine Total 75 ml 75 ml 100 ml 150 ml Stool Total 0 ml # Bowel Movements 0 0 Result Diagram: 09/07/16 0346 09/07/16 0346 Imaging Last Impressions Brain MRI 09/05/16 0000 Signed Impressions: Service Date/Time: Monday, September 05, 2016 16:39 - CONCLUSION: At least three small areas of abnormal contrast enhancement as described above that would be consistent with metastatic disease. Findings are also suspicious for scattered dural enhancement that could be indicative of leptomeningeal disease. Lumbar puncture could be used to confirm. Demetrio Lowery MD FACR Thoracentesis 09/04/16 1540 Signed Impressions: Service Date/Time: Sunday, September 04, 2016 15:34 - CONCLUSION: 1. Uncomplicated right thoracentesis with removal of 600 mL of clear yellow fluid. There is only a minimal amount of right pleural fluid remaining. 2. Small left pleural effusion. There is also bilateral lower lobe atelectasis and patchy consolidation in the lungs bilaterally. Julian Lua MD Lower Extremity Ultrasound 09/04/16 0000 Signed Impressions: Service Date/Time: Sunday, September 04, 2016 09:34 - CONCLUSION: No evidence of DVT. Rohith Gibson MD Head CT 09/04/16 0000 Signed Impressions: Service Date/Time: Sunday, September 04, 2016 15:22 - CONCLUSION: 1. There appears to be an intracranial mass measuring 1.3 cm surrounded by vasogenic edema high along the right cerebral vertex. In a patient with a previous history of breast cancer, metastatic disease is the primary consideration. Recommend MRI of the brain with and without contrast further evaluation. Rohith Gibson MD Lung Scan- Nuclear Medicine 09/03/16 0000 Signed Impressions: Service Date/Time: Saturday, September 03, 2016 22:02 - CONCLUSION: Low probability for pulmonary embolism. Mikel Ross MD Objective Remarks GENERAL: This is a well-nourished, well-developed patient, nad. CARDIOVASCULAR: Regular rate and rhythm without murmurs RESPIRATORY: Clear to auscultation. Breath sounds equal bilaterally but decreased at the bases. No wheezes GASTROINTESTINAL: Abdomen soft, non-tender, nondistended. No guarding. MUSCULOSKELETAL: Extremities with 1+ edema. able to move her arms and feet, motion limited on her lower extremities due to protective padded boots. NEUROLOGICAL: awake and alert but confused. thinks the year is 2116, but she knows she is in [facility] today. follows commands 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 Status: Resolved (8) HTN (hypertension) ICD Code: I10 Status: Chronic (9) HLD (hyperlipidemia) ICD Code: E78.5 Status: Chronic (10) MSSA (methicillin susceptible Staphylococcus aureus) septicemia ICD Code: A41.01 Status: Chronic (11) NANCY (acute kidney injury) ICD Code: N17.9 Status: Acute (12) HCAP (healthcare-associated pneumonia) ICD Code: J18.9 Status: Acute (13) S/P AVR ICD Code: Z95.2 Status: Chronic (14) Anasarca ICD Code: R60.1 Status: Acute (15) Acute hypoxemic respiratory failure ICD Code: J96.01 Status: Acute (16) Lower extremity pain, bilateral ICD Code: M79.604 Status: Acute (17) Diabetes ICD Code: E11.9 Status: Acute (18) Ileus ICD Code: K56.7 Status: Acute Assessment and Plan (1) Sepsis Present on admission - patient with hr > 93 and RR > 20, now has elevated temp 100.3 F Patient previously on Rocephin and Azithromycin for treatment of HCAP. Continue IV Vancomycin and IV Zosyn, diflucan UA (+), Urine culture - yeast species. ID following, pt on vanco, zosyn and diflucan Blood culture negative x3 (2) Encephalopathy Likely metabolic encephalopathy from sepsis. 09/05 CT showed possible mass. Neurosurgery consulted, recommended MRI of the brain. MRI of the brain showed at least 3 small areas of abnormal contrast enhancement that would be consistent w metastatic disease. ? leptomeningeal disease. Patient is much more awake and alert today, encephalopathy seems to be resolving although she is still pleasantly confused, i.e knows she is in [place] but tells me the year is 2116 (3) Hematemesis CT abdomen and pelvis is suggestive of ileus, no BMs recorded. EGD to be done by GI. Hb 8.6 today. Transfuse for hemoglobin less than 7, or less than 8 if the patient is actively bleeding. Goal hemoglobin more than 9. (4) Metabolic acidosis Bicarbonate was very low on admission. Continue bicarbonate drip. (5) Bilateral pleural effusion IR consulted for right-sided the therapeutic thoracentesis. 2-D echo shows mild LVH. Estimated ejection fractions in the range of 55-60%. There is no regional wall motion abnormality. Bileaflet aortic valve prosthesis present. Hold diuretics given worsening creatinine. (6) Paroxysmal a-fib metoprolol placed on hold initially given borderline hypotension. but now resumed with parameters (7) Mycotic aneurysm Sp coiling. (8) HTN (hypertension) monitor. on BB (9) HLD (hyperlipidemia) Lipid profile shows a cholesterol of 68 and LDL cholesterol 26, while under control. Continue statin. (10) MSSA (methicillin susceptible Staphylococcus aureus) septicemia Previously on Rocephin and Azithromycin. Continue IV antibiotics as per ID, now on vancomycin and IV Zosyn fu blood cultures - negative so far fu infectious disease recommendations (11) NANCY (acute kidney injury) Patient's creatinine seems to be worsening. Up to 2.01 Continue IV fluids nephrology following Monitor BUN/creatinine, strict I's and O's, avoid nephrotoxins ct abd and pelvis done on 09/03 did not show hydronephrosis. (12) HCAP (healthcare-associated pneumonia) Antibiotics as above. fu Id recommendations (13) S/P AVR To the echocardiogram as mentioned above. Mechanical aVR 13 years ago. per cards, pt is not a good anticoagulation candidate and this makes her long- term prognosis very poor. (14) Anasarca Follow-up strict input and output. Continue to hold diuretics (15) Acute hypoxemic respiratory failure Likely due to PNA and HCAP. Patient on ventimask 09/03 down to 4 liters nasal canula. VQ scan low probability for PE. 09/05 Improving respiratory failure - Patient now on 4 liters nasal canula. (16) Lower extremity pain, bilateral DVT ruled out with bilat venous doppler. (17) Diabetes Continue to hold metformin. Blood sugars seem to be stable. Continue SSI with insulin novolog, continue to monitor accuchecks. (18) Ileus As shown on CT described above. GI following. Placed on liquid diet Patient is passing gas, stool softeners in place Assessment and Plan GI prophylaxis - continue protonix drip dvt prophylaxis - SCD's Discharge Planning CM working on transferring pt back to [place] discussed w Daughter in law who was at bedside. She tells me that Pt's sons really want to get a second opinion from the neurosurgeon at [facility] prior to making decisions and are hopeful she can be transferred there soon. She doesn 't think that they would like a palliative care consult at this time. Problem Qualifiers (1) Hematemesis: Qualified Code: K92.0 - Hematemesis without nausea (2) HTN (hypertension): Qualified Code: I10 - Essential hypertension (3) Diabetes: Qualified Code: E11.9 - Type 2 diabetes mellitus without complication, unspecified assisted insulin use status Grisel Thurman MD Sep 07, 2016 14:06
--- NOTE | 2016-09-07 14:28 | PD.CARD.PN ---
Subjective Subjective Remarks No chest pain, still with confusion Objective Medications Current Medications Medications (Trade) Dose Ordered Sig/Randy Route Start Time Stop Time Status Last Admin Sodium Bicarbonate 150 meq/Dextrose 1,150 ml @ 50 mls/hr Q23H IV 09/03/16 17:00 09/07/16 02:22 Ceftriaxone Sodium 2000 mg/ Sodium Chloride 100 ml @ 200 mls/hr Q12H IV 09/03/16 16:00 Hold 09/04/16 06:11 (Rifampin Inj/NS Inj) 100 ml @ 100 mls/hr Q12H IV 09/03/16 18:00 09/07/16 05:02 (Bumex Inj) 1 mg BID@09,18 IV PUSH 09/03/16 18:00 Hold 09/04/16 08:22 (Lopressor) 12.5 mg Q12HR PO 09/03/16 21:00 Hold 09/04/16 08:22 (Pill Splitter) 1 ea UNSCH PRN OTHER 09/03/16 19:00 (D50w (Vial) Inj) 50 ml UNSCH PRN IV 09/03/16 19:30 Glucagon 1 mg 1 mg UNSCH PRN OTHER 09/03/16 19:30 Pharmacy Profile Note 0 ml @ 0 mls/hr UNSCH OTHER 09/04/16 11:15 Piperacillin Sod/ Tazobactam Sod 100 ml @ 200 mls/hr Q8H IV 09/04/16 12:00 09/07/16 11:14 (Vancomycin Inj/ NS 500 ml Inj) 517.5 ml @ 250 mls/hr Q18H IV 09/04/16 14:00 Hold 09/05/16 08:20 (Decadron Inj) 4 mg Q6HR IV PUSH 09/04/16 18:00 09/07/16 11:14 Fluconazole 100 mg 100 mg DAILY PO 09/05/16 15:00 09/12/16 14:59 09/07/16 08:37 (Bumex Inj) 100 ml @ 2 mls/hr CONTINUOUS IV 09/05/16 20:00 09/05/16 21:56 (Protonix Inj) 40 mg Q12HR IV PUSH 09/06/16 11:15 09/07/16 08:37 Vital Signs / I&O Vital Signs Date Time Temp Pulse Resp B/P Pulse Ox O2 Delivery O2 Flow Rate FiO2 09/07/16 13:00 86 09/07/16 12:00 84 09/07/16 12:00 97.7 84 22 120/56 95 09/07/16 11:00 88 23 128/58 95 09/07/16 11:00 88 09/07/16 10:00 86 12 125/74 99 09/07/16 10:00 86 09/07/16 09:29 99 Nasal Cannula 4.00 09/07/16 09:00 82 09/07/16 09:00 82 19 126/56 97 09/07/16 09:00 82 19 126/56 97 09/07/16 08:00 81 09/07/16 08:00 97.8 81 15 116/55 97 09/07/16 07:00 82 09/07/16 06:00 84 09/07/16 04:00 88 09/07/16 04:00 98.3 88 20 114/56 99 09/07/16 02:00 86 09/07/16 00:00 98.9 85 20 134/65 99 09/07/16 00:00 85 09/06/16 22:00 92 09/06/16 20:35 95 Nasal Cannula 1.00 09/06/16 20:00 98 09/06/16 20:00 98.9 98 20 123/67 93 09/06/16 18:00 101 09/06/16 17:18 92 1.00 09/06/16 16:00 97.3 86 15 110/53 100 09/06/16 16:00 91 I/O 09/06/16 09/06/16 09/06/16 09/07/16 09/07/16 09/07/16 07:00 15:00 23:00 07:00 15:00 23:00 Intake Total 1068 ml 1400 ml 792 ml 627 ml Output Total 75 ml 75 ml 100 ml 150 ml Balance 993 ml 1325 ml 692 ml 477 ml Intake Oral 300 ml 300 ml 75 ml IV Total 768 ml 1400 ml 492 ml 552 ml Output Urine Total 75 ml 75 ml 100 ml 150 ml Stool Total 0 ml # Bowel Movements 0 0 Physical Exam GENERAL: NAD, awake and alert, oriented to person and place SKIN: Warm and dry. HEAD: Atraumatic. Normocephalic. EYES: Pupils equal and round. No scleral icterus. No injection or drainage. ENT: No nasal bleeding or discharge. Mucous membranes pink and moist. NECK: Trachea midline. No JVD. CARDIOVASCULAR: Irregularly irregular RESPIRATORY: No accessory muscle use. Decreased breath sounds bilaterally GASTROINTESTINAL: Abdomen soft, non-tender, nondistended. Hepatic and splenic margins not palpable. MUSCULOSKELETAL: Extremities without clubbing, cyanosis, or edema. No obvious deformities. NEUROLOGICAL: Awake and alert, confused. Appears to move extremities Laboratory Laboratory Tests Test 09/07/16 09/07/16 03:46 07:30 Hemoglobin 8.6 GM/DL Hematocrit 27.0 % Sodium Level 135 MEQ/L Potassium Level 4.7 MEQ/L Chloride Level 101 MEQ/L Carbon Dioxide Level 22.9 MEQ/L Anion Gap 11 MEQ/L Blood Urea Nitrogen 37 MG/DL Creatinine 1.97 MG/DL Estimat Glomerular Filtration 25 ML/MIN Rate Random Glucose 171 MG/DL Calcium Level 7.4 MG/DL Protein Corrected Calcium 8.3 MG/DL Total Protein 5.4 GM/DL Random Vancomycin Level 21.6 COMMENT Urine Eosinophils NONE SEEN /HPF Urine Osmolality 276 MOSM/KG Urine Random Sodium 71 MEQ/L Assessment and Plan Problem List: (1) Sepsis (2) Encephalopathy (3) Metabolic acidosis (4) Mycotic aneurysm (5) Hemorrhagic cerebrovascular accident (CVA) (6) Ischemic stroke of frontal lobe (7) S/P AVR (8) Diabetes (9) Acute hypoxemic respiratory failure (10) HCAP (healthcare-associated pneumonia) (11) Paroxysmal a-fib (12) NANCY (acute kidney injury) (13) Bilateral pleural effusion (14) MSSA (methicillin susceptible Staphylococcus aureus) septicemia (15) HLD (hyperlipidemia) (16) HTN (hypertension) (17) Anasarca (18) Hematemesis Assessment and Plan 1) History of mechanical aortic valve replacement, previously on Coumadin Had GI bleed with INR 5.8 CVA off Coumadin with hemorrhagic conversion once placed on heparin Hematemesis off anticoagulation with drop in Hgb of 3g Not an anticoagulation candidate, would consider ASA 81mg once ok with neurosurgery/GI... will hold off for now with concern for METs 2) Acute confusion, discussed with primary team 3) CHF, will continue diuresis s/p right sided thoracentesis 4) Not a cardiac catheterization candidate, so would not plan on ischemic evaluation 5) Discussed with the family (2 sons and daughter) extensively about not being an anticoagulation candidate and my overall concern for her health with long hospitalization. They understand and agree. They understand that she has been on a down turn for a long period of time Eventually if not turning around, will need palliative care consult to help with decisions 6) Possible metastatic disease noted on the MRI 7) Possible transfer to [place], will see PRN, call with questions Problem Qualifiers (1) Diabetes: Qualified Code: E11.9 - Type 2 diabetes mellitus without complication, unspecified meterman insulin use status (2) HTN (hypertension): Qualified Code: I10 - Essential hypertension (3) Hematemesis: Qualified Code: K92.0 - Hematemesis without nausea Jacky Reyes DO Sep 07, 2016 14:28
--- NOTE | 2016-09-07 14:53 | HHI.IDPN ---
Subjective Subjective Remarks Patient is a 70-year-old female, transferred from [facility] to the [facility] after she had coffee ground emesis, and hypoxemia. Patient was initially at [facility] with an acute GI bleed back in July 2016. She had a very high pro-time, and she had been on Coumadin for her atrial fibrillation and aVR. GI workup at that time did not reveal any active source of bleeding. 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 She was started on anticoagulation, and had hemorrhagic conversion of her stroke. She underwent CTA and finding showed suggestion of mycotic aneurysm. She apparently developed sepsis at that time and required pressors for shock, she was intubated. She was subsequently transferred to the [facility] on August 12, and underwent coiling. 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 RADHA however did not show any vegetation in any of her valves. She subsequently improved and got extubated. She was transferred to [facility] for comprehensive rehabilitation on August 28, 2016. Infectious disease recommendation at that time is for her to complete Rocephin and rifampin September. While at [facility], she was doing rehabilitation. She's had some problem with lethargy. On the day of admission she apparently had nausea and vomiting and had some abdominal pain and some chest pain. She had coffee ground emesis. Her O2 saturation at that time was in the 70s, and she appeared dyspneic. She was therefore admitted to the [facility] for closer monitoring and further evaluation and treatment. While at [facility] she had 2 units of packed RBC that was transfused. Her hemoglobin was staying around 10, and on the day of admission it was down to 8. She's had some low-grade temps. According to the nurse she's been very lethargic this morning. Patient just came back from the radiology department for she had thoracenteses as well as CT of the head. Patient currently is on nasal O2. She is not on any pressors. Monitor shows atrial fibrillation. CT of the abdomen and pelvis showed possible ileus, and she had evidence of bilateral pleural effusion and consolidation. She also had a urinalysis which showed some pyuria. Patient's urine output has been low, and her creatinine had gone up to 1.44. It was 0.8 previously. Infectious disease consultation has been requested to evaluate patient with multiple problems including sepsis, UTI, possible pneumonia. Notes reviewed D/W RN Temps ok She is awake and alert; usually lethargic in the mornings Waiting for [facility] - if patient will be accepted Not SOB UO low, on bumex May need HD per renal if not improving UC with yeast BC negative Pleural fluid C/S negative Antibiotics Vanco - on hold Zosyn Rifampin Past Medical History Reviewed Allergies: Coded Allergies: Codeine (Verified Allergy, Unknown, 08/27/16) Haldol (Verified Allergy, Unknown, 08/27/16) Objective . Vital Signs Date Time Temp Pulse Resp B/P Pulse Ox O2 Delivery O2 Flow Rate FiO2 09/07/16 14:15 93 09/07/16 14:00 91 09/07/16 13:00 86 09/07/16 12:00 84 09/07/16 12:00 97.7 84 22 120/56 95 09/07/16 11:00 88 23 128/58 95 09/07/16 11:00 88 09/07/16 10:00 86 12 125/74 99 09/07/16 10:00 86 09/07/16 09:29 99 Nasal Cannula 4.00 09/07/16 09:00 82 09/07/16 09:00 82 19 126/56 97 09/07/16 09:00 82 19 126/56 97 09/07/16 08:00 81 09/07/16 08:00 97.8 81 15 116/55 97 09/07/16 07:00 82 09/07/16 06:00 84 09/07/16 04:00 88 09/07/16 04:00 98.3 88 20 114/56 99 09/07/16 02:00 86 09/07/16 00:00 98.9 85 20 134/65 99 09/07/16 00:00 85 09/06/16 22:00 92 09/06/16 20:35 95 Nasal Cannula 1.00 09/06/16 20:00 98 09/06/16 20:00 98.9 98 20 123/67 93 09/06/16 18:00 101 09/06/16 17:18 92 1.00 09/06/16 16:00 97.3 86 15 110/53 100 09/06/16 16:00 91 09/06/16 09/06/16 09/07/16 15:00 23:00 07:00 Intake Total 1400 ml 792 ml 627 ml Output Total 75 ml 100 ml 150 ml Balance 1325 ml 692 ml 477 ml Intake Oral 300 ml 75 ml IV Total 1400 ml 492 ml 552 ml Output Urine Total 75 ml 100 ml 150 ml Stool Total 0 ml # Bowel Movements 0 0 . Laboratory Tests Test 09/06/16 09/07/16 04:07 03:46 White Blood Count 6.5 TH/MM3 Red Blood Count 3.00 MIL/MM3 Hemoglobin 9.1 GM/DL 8.6 GM/DL Hematocrit 27.8 % 27.0 % Mean Corpuscular Volume 92.9 FL Mean Corpuscular Hemoglobin 30.3 PG Mean Corpuscular Hemoglobin 32.6 % Concent Red Cell Distribution Width 21.8 % Platelet Count 158 TH/MM3 Mean Platelet Volume 8.3 FL Neutrophils (%) (Auto) 82.4 % Lymphocytes (%) (Auto) 13.3 % Monocytes (%) (Auto) 3.6 % Eosinophils (%) (Auto) 0.1 % Basophils (%) (Auto) 0.6 % Neutrophils # (Auto) 5.4 TH/MM3 Lymphocytes # (Auto) 0.9 TH/MM3 Monocytes # (Auto) 0.2 TH/MM3 Eosinophils # (Auto) 0.0 TH/MM3 Basophils # (Auto) 0.0 TH/MM3 CBC Comment DIFF FINAL Differential Comment Laboratory Tests Test 09/05/16 09/05/16 09/06/16 09/07/16 18:50 21:00 04:07 03:46 Lactic Acid Level 1.0 mmol/L Sodium Level 134 MEQ/L 133 MEQ/L 135 MEQ/L Potassium Level 5.0 MEQ/L 5.1 MEQ/L 4.7 MEQ/L Chloride Level 103 MEQ/L 102 MEQ/L 101 MEQ/L Carbon Dioxide Level 20.0 MEQ/L 19.2 MEQ/L 22.9 MEQ/L Anion Gap 11 MEQ/L 12 MEQ/L 11 MEQ/L Blood Urea Nitrogen 36 MG/DL 36 MG/DL 37 MG/DL Creatinine 1.92 MG/DL 2.01 MG/DL 1.97 MG/DL Estimat Glomerular Filtration 26 ML/MIN 24 ML/MIN 25 ML/MIN Rate Random Glucose 168 MG/DL 179 MG/DL 171 MG/DL Calcium Level 7.3 MG/DL 7.7 MG/DL 7.4 MG/DL Protein Corrected Calcium 8.5 MG/DL 8.3 MG/DL Total Protein 4.9 GM/DL 5.2 GM/DL 5.4 GM/DL Total Bilirubin 1.0 MG/DL Aspartate Amino Transf 19 U/L (AST/SGOT) Alanine Aminotransferase 11 U/L (ALT/SGPT) Alkaline Phosphatase 179 U/L Albumin 1.7 GM/DL Microbiology Date/Time Procedure Status Source Growth 09/04/16 16:00 Gram Stain - Final Complete Fluid Pleural Fluid 09/04/16 16:00 Body Fluid Culture - Final Complete Fluid Pleural Fluid NO GROWTH IN 72 HRS.--AEROBICALLY OR ... Imaging Last Impressions Thoracentesis 09/04/16 1540 Signed Impressions: Service Date/Time: Sunday, September 04, 2016 15:34 - CONCLUSION: 1. Uncomplicated right thoracentesis with removal of 600 mL of clear yellow fluid. There is only a minimal amount of right pleural fluid remaining. 2. Small left pleural effusion. There is also bilateral lower lobe atelectasis and patchy consolidation in the lungs bilaterally. Julian Lua MD Lower Extremity Ultrasound 09/04/16 0000 Signed Impressions: Service Date/Time: Sunday, September 04, 2016 09:34 - CONCLUSION: No evidence of DVT. Rohith Gibson MD Head CT 09/04/16 0000 Signed Impressions: Service Date/Time: Sunday, September 04, 2016 15:22 - CONCLUSION: 1. There appears to be an intracranial mass measuring 1.3 cm surrounded by vasogenic edema high along the right cerebral vertex. In a patient with a previous history of breast cancer, metastatic disease is the primary consideration. Recommend MRI of the brain with and without contrast further evaluation. Rohith Gibson MD Lung Scan- Nuclear Medicine 09/03/16 0000 Signed Impressions: Service Date/Time: Saturday, September 03, 2016 22:02 - CONCLUSION: Low probability for pulmonary embolism. Mikel Ross MD Physical Exam GENERAL: awake and alert, not in respiratory distress. SKIN: Warm and dry. No generalized rash, no evidence of embolic lesions. HEENT: [place] conjunctiva. Has scleral hemorrhage on R, and has improving scleral edema. Pupils equal, round and reactive to light. Moist oral mucosa EARS, NOSE AND THROAT: Nose without bleeding or purulent nasal discharge. Moist oral mucosa. NECK: Trachea midline. Supple and not tender, no meningeal signs CARDIOVASCULAR: Irregular rate and rhythm. Has harsh systolic murmur at base of the heart. RESPIRATORY: Coarse breath sounds bilaterally. No rales, wheezing or rhonchi. Decreased at bases ABDOMEN: Globular and distended, has a large incisional/ventral hernia, has diffuse mild tenderness, no guarding or rebound, bowel sounds present and hypoactive. EXTREMITIES: No clubbing, cyanosis. Both feet cool to touch, no mottling. Skin tight both LE. No calf tenderness. NEUROLOGICAL: No facial asymmetry, full EOM, tongue midline. Equal motor strength PSYCHIATRIC: Calm and cooperative LINE: No evidence of infection : Ruiz in place, clear yellow urine Assessment & Plan Remarks IMPRESSION Sepsis, source? - has UTI - ?new PNA, ?aspiration - on Rx for MSSA sepsis, and presumed PVE, AVR, RADHA negative - has ileus Recurrent GIB CVA, S/P coiling of aneurysm Chronic atrial fib S/P AVR 2006 Renal insufficiency, ?due to sepsis RECOMMENDATION Continue Vanco - give dose tomorrow and check level on Saturday Continue Zosyn Continue Diflucan Follow C/S Monitor progress CM working on possible transfer to [place] per neurosurgery D/W RN Dr Jose Miguel Ellsworth available if needed this weekend Mary Valadez MD Sep 07, 2016 14:53
[2016-09-07] MEDS ORDERED: MAGNESIUM HYDROXIDE SUSP 30 ML CUP PO PRN (17:45)
[2016-09-07] MEDS ORDERED: DOCUSATE SODIUM 50 MG/SENNA 8.6 MG TAB PO PRN (17:45)
[2016-09-07] MEDS: BUMETANIDE INJ 100 ML IV SCH (23:57)
[2016-09-08] VITALS (19 sets, daily range): BP systolic 85–140; BP diastolic 46–93; PULSE 87–101; RESP 16–31; TEMP 97.6–98.5; O2SAT 83–100
[2016-09-08] MEDS ORDERED: RESP: ALBUTEROL 2.5 MG/IPRATROPIUM 0.5 MG NEB (PRN) NEB (01:30)
[2016-09-08] MEDS ORDERED: MORPHINE SULFATE 4 MG/ML INJ IV PUSH ONE (01:30)
[2016-09-08] MEDS: PIPERACIL-TAZO 4.5 GM PREMIX 100 ML IV SCH ×3 (04:14→22:30)
[2016-09-08] MEDS: RIFAMPIN INJ 300 MG in SODIUM CHLORIDE 0.9% INJ 100 ML IV SCH ×2 (04:14→17:59)
[2016-09-08] MEDS: DEXAMETHASONE SOD PHOS 4 MG/ML VIAL IV PUSH SCH ×3 (04:15→17:59)
[2016-09-08 06:17] LABS: AUTOMATED NEUTROPHIL # 4.4 TH/MM3 (1.8-7.7); BASOPHIL % 0.2 % (0.0-2.0); HEMATOCRIT 26.8 % (35.0-46.0); HEMO FLAGS DIFF FINAL; LYMPH % 9.9 % (9.0-44.0); LYMPHOCYTE # 0.5 TH/MM3 (1.0-4.8); MEAN CELL VOLUME 91.6 FL (80.0-100.0); MEAN CORPUSCULAR HEMOGLOBIN 29.6 PG (27.0-34.0); MEAN CORPUSCULAR HGB CONC 32.3 % (32.0-36.0); MONO % 3.9 % (0.0-8.0); PLATELET COUNT 137 TH/MM3 (150-450); RED BLOOD COUNT 2.93 MIL/MM3 (4.00-5.30); RED CELL DISTRIBUTION WIDTH 21.4 % (11.6-17.2); WHITE BLOOD COUNT 5.1 TH/MM3 (4.0-11.0)
[2016-09-08 06:38] LABS: BICARBONATE 23.8 MEQ/L (21.0-32.0); POTASSIUM 4.5 MEQ/L (3.5-5.1)
[2016-09-08] MEDS: INSULIN ASPART SUPPLEMENTAL SCALE SQ SCH ×4 (06:41→21:00)
[2016-09-08 07:02] LABS: CALCIUM-PROTEIN CORRECTED 8.1 MG/DL (8.5-10.1)
[2016-09-08] MEDS ORDERED: VANCOMYCIN INJ 1,000 MG in SODIUM CHLOR 0.9% 250 ML INJ 250 ML IV ONE (08:00)
[2016-09-08] MEDS: PANTOPRAZOLE SODIUM 40 MG VIAL IV PUSH SCH ×2 (08:22→22:29)
[2016-09-08] MEDS: FLUCONAZOLE 100 MG TAB PO SCH (08:22)
[2016-09-08] MEDS: POLYETHYLENE GLYCOL 17 GM PKG PO SCH (08:23)
--- NOTE | 2016-09-08 09:58 | HHI.PR ---
Subjective Remarks Follow-up for lethargy, bacteremia Patient denies any headache, chest pain, fever but complains of mild abdominal pain. Alert, awake, oriented to place her birthday. Discussed with daughter-in -law. Objective Vitals Vital Signs Date Time Temp Pulse Resp B/P Pulse Ox O2 Delivery O2 Flow Rate FiO2 09/08/16 07:45 96 Nasal Cannula 4.00 09/08/16 06:00 87 09/08/16 04:00 91 09/08/16 04:00 98.0 91 19 105/55 92 09/08/16 02:00 95 09/08/16 00:00 97.8 91 26 136/46 98 09/08/16 00:00 91 09/07/16 22:00 97 09/07/16 20:00 91 09/07/16 20:00 97.9 104 20 136/71 96 09/07/16 19:51 100 Nasal Cannula 3.00 09/07/16 18:00 87 09/07/16 17:01 92 09/07/16 17:00 87 21 94 09/07/16 17:00 87 09/07/16 16:43 89 19 143/58 99 09/07/16 16:43 89 09/07/16 16:01 92 24 167/110 91 09/07/16 16:01 92 09/07/16 16:00 98 09/07/16 16:00 97.9 98 21 90 09/07/16 15:00 86 09/07/16 15:00 86 19 127/67 100 09/07/16 14:15 93 09/07/16 14:00 91 36 121/68 83 09/07/16 14:00 91 09/07/16 13:00 86 09/07/16 13:00 86 32 137/62 98 09/07/16 12:00 84 09/07/16 12:00 84 22 120/56 95 09/07/16 12:00 97.7 84 22 120/56 95 09/07/16 11:00 88 23 128/58 95 09/07/16 11:00 88 09/07/16 10:00 86 12 125/74 99 09/07/16 10:00 86 I/O 09/07/16 09/07/16 09/07/16 09/08/16 09/08/16 09/08/16 07:00 15:00 23:00 07:00 15:00 23:00 Intake Total 627 ml 691 ml 171 ml 320 ml Output Total 150 ml 500 ml 175 ml 450 ml Balance 477 ml 191 ml -4 ml -130 ml Intake Oral 75 ml 75 ml 0 ml 0 ml IV Total 552 ml 616 ml 171 ml 320 ml Output Urine Total 150 ml 500 ml 175 ml 450 ml # Bowel Movements 0 0 0 0 Result Diagram: 09/08/1640909/08/16409 Objective Remarks GENERAL: Not in distress, coherent. CARDIOVASCULAR: Regular rate and rhythm without murmurs RESPIRATORY: Clear to auscultation. Breath sounds equal bilaterally but decreased at the bases. No wheezes GASTROINTESTINAL: Abdomen soft, non-tender, nondistended. No guarding. MUSCULOSKELETAL: Extremities with 1+ edema. able to move her arms and feet, motion limited on her lower extremities due to protective padded boots. Positive for generalized weakness. NEUROLOGICAL: awake and alert, oriented to place but not to time,her birthday. Follows commands. 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 Status: Resolved (8) HTN (hypertension) ICD Code: I10 Status: Chronic (9) HLD (hyperlipidemia) ICD Code: E78.5 Status: Chronic (10) MSSA (methicillin susceptible Staphylococcus aureus) septicemia ICD Code: A41.01 Status: Chronic (11) NANCY (acute kidney injury) ICD Code: N17.9 Status: Acute (12) HCAP (healthcare-associated pneumonia) ICD Code: J18.9 Status: Acute (13) S/P AVR ICD Code: Z95.2 Status: Chronic (14) Anasarca ICD Code: R60.1 Status: Acute (15) Acute hypoxemic respiratory failure ICD Code: J96.01 Status: Acute (16) Lower extremity pain, bilateral ICD Code: M79.604 Status: Acute (17) Diabetes ICD Code: E11.9 Status: Acute (18) Ileus ICD Code: K56.7 Status: Acute Assessment and Plan This is a 70-year-old female with history of stroke with hemorrhagic transformation status post coiling of mycotic aneurysm, GI bleeding, recent 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 MECHANICAL TEST TECHNICIAN infection, UTI, healthcare associated pneumonia - Infectious disease following, continue vancomycin, Zosyn and Diflucan. Urine culture positive for yeast. Blood culture negative to date. - Discussed with [id number], allegedly, neurosurgery from [place] thinks that the patient may have MECHANICAL TEST TECHNICIAN infection MSSA bacteremia. Toxic metabolic encephalopathy-09/05 CT showed possible mass, possible metastatic disease. Neurosurgery consulted, MRI of the brain showed at least 3 small areas of abnormal contrast enhancement that would be consistent w metastatic disease. ? leptomeningeal disease. Initial plan was to transfer back to [facility] neurosurgery to talk to Dr. Briceno. Allegedly per patient's [id number], Dr. Barney [facility] thinks that the patient may have MECHANICAL TEST TECHNICIAN infection. Hematemesis-CT abdomen and pelvis is suggestive of ileus, no BMs recorded. Transfuse as needed, GI following. Acute renal failure-secondary to ATN, nephrology following, bicarbonate drip and Bumex per nephrology. No hydronephrosis is CT scan of the abdomen. Creatinine improving Bilateral pleural effusion-status post recent therapeutic thoracenteses.2-D echo shows mild LVH. Estimated ejection fractions in the range of 55-60%. There is no regional wall motion abnormality. Bileaflet aortic valve prosthesis present. Paroxysmal a-fib, hypertension, status post previous aVR-metoprolol on hold, anticoagulation on hold, cardiology following, aspirin once neurosurgery clears patient. No anticoagulation. Due to history of GI bleed and intracranial hemorrhage, hold anticoagulation. Per cardiology, poor prognosis, consider palliative care if no improvement. Mycotic aneurysm -Sp coiling. Acute hypoxemic respiratory failure - Likely due to HCAP.VQ scan low probability for PE. Positive nasal cannula 4 L. Lower extremity pain, bilateral -DVT ruled out with bilat venous doppler. Diabetes- hold metformin, sliding scale insulin with NovoLog. Ileus, constipation-GI following, diet as tolerated, GI has signed off, check abdominal x-ray, no bowel movement for several days. I need an enema. GI prophylaxis - continue protonix drip dvt prophylaxis - SCD's, pharmacological prophylaxis contraindicated because of recent hemorrhage. Discharge Planning Back to [facility] when ready Problem Qualifiers (1) Hematemesis: Qualified Code: K92.0 - Hematemesis without nausea (2) HTN (hypertension): Qualified Code: I10 - Essential hypertension (3) Diabetes: Qualified Code: E11.9 - Type 2 diabetes mellitus without complication, unspecified terminal manager insulin use status Ricardo Del Real MD Sep 08, 2016 09:58
--- NOTE | 2016-09-08 10:29 | HHI.NPPN ---
Subjective History of Present Illness 70-year-old female with a past medical history of atrial fibrillation, history of GI bleeding, hypertension, ischemic heart disease, congestive heart failure, history of breast cancer with post mastectomy, colon cancer, was transferred here from [facility]. I was called for elevated BUN/Creatinine and decrease urine out put. Additional Remarks she remains confused. Daughter is at the bedside. She tells me that patient's neurosurgeon at [facility] reviewed MRI and thinks that she has infection and not metastatic disease. On Bumex drip. Objective Data Data 09/07/16 09/08/16 19:00 07:00 Intake Total 691 ml 491 ml Output Total 500 ml 625 ml Balance 191 ml -134 ml Intake Oral 75 ml 0 ml IV Total 616 ml 491 ml Output Urine Total 500 ml 625 ml # Bowel Movements 0 0 Vital Signs Date Time Temp Pulse Resp B/P Pulse Ox O2 Delivery O2 Flow Rate FiO2 09/08/16 07:45 96 Nasal Cannula 4.00 09/08/16 06:00 87 09/08/16 04:00 91 09/08/16 04:00 98.0 91 19 105/55 92 09/08/16 02:00 95 09/08/16 00:00 97.8 91 26 136/46 98 09/08/16 00:00 91 09/07/16 22:00 97 09/07/16 20:00 91 09/07/16 20:00 97.9 104 20 136/71 96 09/07/16 19:51 100 Nasal Cannula 3.00 09/07/16 18:00 87 09/07/16 17:01 92 09/07/16 17:00 87 21 94 09/07/16 17:00 87 09/07/16 16:43 89 19 143/58 99 09/07/16 16:43 89 09/07/16 16:01 92 24 167/110 91 09/07/16 16:01 92 09/07/16 16:00 98 09/07/16 16:00 97.9 98 21 90 09/07/16 15:00 86 09/07/16 15:00 86 19 127/67 100 09/07/16 14:15 93 09/07/16 14:00 91 36 121/68 83 09/07/16 14:00 91 09/07/16 13:00 86 09/07/16 13:00 86 32 137/62 98 09/07/16 12:00 84 09/07/16 12:00 84 22 120/56 95 09/07/16 12:00 97.7 84 22 120/56 95 09/07/16 11:00 88 23 128/58 95 09/07/16 11:00 88 -: 09/08/16 0410 09/08/16 0410 Physical Exam General Appearance: No Acute Distress, Anxious Eyes Eye Exam: Pupils Equal Throat Throat Exam: Oral Mucosa [place] & Moist Neck Neck Exam: Neck Supple Pulmonary Resp Exam: No Distress, Rhonchi, Decreased Bases, Diminished Breath Sounds Cardiology CV Exam: Regular, Normal Sinus Rhythm Gastrointestinal/Abdomen GI Exam: Soft, Non-Tender, Distended Extremeties Extremities Exam: Moderate Edema, Pitting Edema Neurologic Neuro Exam: Alert, Awake Assessment/Plan Assessment Summary: NANCY/Acute Renal Failure Electrolyte Assessment: Metabolic Acidosis Problem List: (1) Hemorrhagic stroke (2) Diabetes (3) Paroxysmal a-fib (4) Anemia (5) Obesity (6) Hematemesis (7) Encephalopathy (8) NANCY (acute kidney injury) Plan patient's urine output improved with Bumex drip. I will stop Sodium bicarbonate drip and continue Bumex. She continues to have significant lower extremity swelling. Results of MRI noted: discussed with patient's daughter. She is being followed by ID. Notes were reviewed. She is now on Vancomycin and Zosyn. Possible transfer to [facility]. No urgent need for Dialysis. Avoid nephrotoxic agents. Problem Qualifiers (1) Diabetes: (2) Hematemesis: Qualified Code: K92.0 - Hematemesis without nausea Fortino Roy MD Sep 08, 2016 10:29
--- NOTE | 2016-09-08 10:47 | RADRPT ---
EXAM DATE/TIME: 09/08/2016 10:03 [place] COMPARISON: ABDOMEN KUB ONLY, September 03, 2016, 9:06. INDICATIONS : Constipation and abdominal pain. MEDICAL HISTORY : Hypertension. Cardiovascular disease Diabetes mellitus type 2. SURGICAL HISTORY : Appendectomy. ENCOUNTER: Initial ACUITY: 1 day PAIN SCORE: 10/10 LOCATION: Bilateral abdomen. FINDINGS: 3 supine AP views of the abdomen. Multiple air-filled distended loops of small bowel in the left ion abdomen. Scattered gas in the colon. CONCLUSION: Nonspecific bowel gas pattern again seen with multiple dilated air-filled loops of small bowel, now p redominantly located in the left hemiabdomen. Decrease in the amount of air in the colon. Migue Lockett MD on September 08, 2016 at 10:43 Board Certified Radiologist. This report was verified electronically.
[2016-09-08] MEDS ORDERED: VANCOMYCIN INJ 1,750 MG in SODIUM CHLORID 0.9% 500 ML INJ 500 ML IV ONE (11:00)
[2016-09-08] MEDS ORDERED: SODIUM CHLOR 0.9% 250 ML INJ 250 ML IV ONE (19:45)
[2016-09-08] MEDS ORDERED: SODIUM CHLOR 0.9% 1000 ML INJ 1,000 ML IV SCH (20:00)
[2016-09-09] VITALS (27 sets, daily range): BP systolic 135–178; BP diastolic 58–106; PULSE 80–111; RESP 17–36; TEMP 97.5–98; O2SAT 82–100
[2016-09-09] MEDS: DEXAMETHASONE SOD PHOS 4 MG/ML VIAL IV PUSH SCH ×4 (01:39→17:12)
[2016-09-09] MEDS: PIPERACIL-TAZO 4.5 GM PREMIX 100 ML IV SCH ×3 (01:40→21:31)
[2016-09-09 05:56] LABS: AUTOMATED NEUTROPHIL # 3.6 TH/MM3 (1.8-7.7); BASOPHIL % 0.1 % (0.0-2.0); HEMATOCRIT 27.6 % (35.0-46.0); LYMPHOCYTE # 0.4 TH/MM3 (1.0-4.8); MEAN CELL VOLUME 91.7 FL (80.0-100.0); MEAN CORPUSCULAR HEMOGLOBIN 29.2 PG (27.0-34.0); MEAN CORPUSCULAR HGB CONC 31.9 % (32.0-36.0); MONO % 2.7 % (0.0-8.0); NEUT % 88.2 % (16.0-70.0); PLATELET COUNT 129 TH/MM3 (150-450); RED BLOOD COUNT 3.02 MIL/MM3 (4.00-5.30); RED CELL DISTRIBUTION WIDTH 21.7 % (11.6-17.2); WHITE BLOOD COUNT 4.1 TH/MM3 (4.0-11.0)
[2016-09-09 06:04] LABS: HEMO FLAGS AUTO DIFF
[2016-09-09 06:10] LABS: POTASSIUM 4.1 MEQ/L (3.5-5.1)
[2016-09-09 06:23] LABS: CALCIUM-PROTEIN CORRECTED 8.2 MG/DL (8.5-10.1)
[2016-09-09] MEDS: INSULIN ASPART SUPPLEMENTAL SCALE SQ SCH ×4 (06:25→21:00)
[2016-09-09] MEDS: RIFAMPIN INJ 300 MG in SODIUM CHLORIDE 0.9% INJ 100 ML IV SCH ×2 (06:25→17:12)
[2016-09-09 08:27] LABS: BANDS 9 % (0-6); METAMYELOCYTES 1 % (0-1); MYELOCYTES 1 % (0-0); NEUTROPHIL # MANUAL DIFF 3.7 TH/MM3 (1.8-7.7); POLYS (SEG NEUTROPHILS) 79 % (16-70); WBC DIFF SAMPLE 100
[2016-09-09 08:28] LABS: PLATELET ESTIMATE SMEAR LOW (NORMAL)
[2016-09-09 08:29] LABS: ACANTHOCYTES OCC (NORMAL); KERATOCYTES OCC (NORMAL); PLATELET MORPHOLOGY ENLARGED (NORMAL)
[2016-09-09 08:30] LABS: OVALOCYTES 1+ (NORMAL); SCAN/DIFF FINAL DIFF MANUAL
[2016-09-09] MEDS ORDERED: MINERAL OIL ENEMA 118 ML BTL RECTAL PRN (08:45)
[2016-09-09] MEDS: PANTOPRAZOLE SODIUM 40 MG VIAL IV PUSH SCH ×2 (09:00→21:32)
[2016-09-09] MEDS: LACTULOSE SYRUP 20 GM/30 ML CUP PO SCH (09:00)
[2016-09-09] MEDS: POLYETHYLENE GLYCOL 17 GM PKG PO SCH (09:00)
--- NOTE | 2016-09-09 10:19 | HHI.NPPN ---
Subjective History of Present Illness 70-year-old female with a past medical history of atrial fibrillation, history of GI bleeding, hypertension, ischemic heart disease, congestive heart failure, history of breast cancer with post mastectomy, colon cancer, was transferred here from [facility]. I was called for elevated BUN/Creatinine and decrease urine out put. Additional Remarks She is confused. On Bumex drip. Excellent diuresis, renal function has improved. Objective Data Data 09/08/16 09/09/16 19:00 07:00 Intake Total 1361 ml 1810 ml Output Total 1050 ml 3050 ml Balance 311 ml -1240 ml Intake Oral 240 ml 240 ml IV Total 1121 ml 1570 ml Output Urine Total 1050 ml 3050 ml # Bowel Movements 0 Vital Signs Date Time Temp Pulse Resp B/P Pulse Ox O2 Delivery O2 Flow Rate FiO2 09/09/16 10:00 86 09/09/16 08:00 80 09/09/16 08:00 97.8 80 17 155/64 95 09/09/16 07:31 98 Nasal Cannula 2.00 09/09/16 06:00 87 09/09/16 05:01 86 09/09/16 05:00 86 09/09/16 04:06 90 22 138/73 97 09/09/16 04:06 90 09/09/16 04:00 89 09/09/16 04:00 97.7 89 19 138/73 98 09/09/16 03:00 85 09/09/16 03:00 85 24 135/58 97 09/09/16 02:00 111 09/09/16 02:00 111 36 148/95 82 09/09/16 01:00 91 146/88 100 09/09/16 01:00 91 09/09/16 00:30 87 146/70 84 09/09/16 00:30 87 09/09/16 00:08 111 09/09/16 00:08 111 36 167/71 86 09/09/16 00:01 99 09/09/16 00:01 99 23 149/106 97 09/09/16 00:00 97.5 94 27 93 09/09/16 00:00 94 09/08/16 23:30 97 09/08/16 23:30 97 23 140/81 83 09/08/16 23:00 91 09/08/16 23:00 91 16 137/74 96 6/3/17 22:30 91 26 127/52 94 09/08/16 22:00 101 31 133/80 84 09/08/16 22:00 101 09/08/16 21:30 92 30 134/93 95 09/08/16 21:00 95 27 129/78 95 09/08/16 20:00 98.5 95 17 133/70 97 09/08/16 20:00 95 09/08/16 19:28 100 Nasal Cannula 4.00 09/08/16 18:00 87 09/08/16 16:00 92 09/08/16 16:00 97.8 92 28 85/53 91 09/08/16 14:00 97 09/08/16 12:00 89 09/08/16 12:00 97.6 89 29 138/68 92 -: 09/09/16 0335 09/09/16 0335 Physical Exam General Appearance: No Acute Distress Eyes Eye Exam: Pupils Equal Throat Throat Exam: Oral Mucosa [place] & Moist Neck Neck Exam: Neck Supple Pulmonary Resp Exam: No Distress, Rhonchi, Decreased Bases, Diminished Breath Sounds Cardiology CV Exam: Regular, Normal Sinus Rhythm Gastrointestinal/Abdomen GI Exam: Soft, Non-Tender, Distended Extremeties Extremities Exam: Moderate Edema, Pitting Edema Neurologic Neuro Exam: Alert, Awake Assessment/Plan Assessment Summary: NANCY/Acute Renal Failure Electrolyte Assessment: Metabolic Acidosis Problem List: (1) Hemorrhagic stroke (2) Diabetes (3) Paroxysmal a-fib (4) Anemia (5) Obesity (6) Hematemesis (7) Encephalopathy (8) NANCY (acute kidney injury) Plan patient's urine output improved with Bumex drip. . She continues to have significant lower extremity swelling. Continue Bumex. She is now on Vancomycin and Zosyn. Possible transfer to [place]. Avoid nephrotoxic agents. Problem Qualifiers (1) Diabetes: (2) Hematemesis: Qualified Code: K92.0 - Hematemesis without nausea Fortino Roy MD Sep 09, 2016 10:19
--- NOTE | 2016-09-09 13:17 | HHI.PR ---
Subjective Remarks Follow-up for constipation, bacteremia. Afebrile, still without any bowel movements. X-ray showed nonspecific bowel gas pattern. Patient is refusing Diflucan. Patient still disoriented. Objective Vitals Vital Signs Date Time Temp Pulse Resp B/P Pulse Ox O2 Delivery O2 Flow Rate FiO2 09/09/16 10:00 86 09/09/16 08:00 80 09/09/16 08:00 97.8 80 17 155/64 95 09/09/16 07:31 98 Nasal Cannula 2.00 09/09/16 06:00 87 09/09/16 05:01 86 09/09/16 05:00 86 09/09/16 04:06 90 22 138/73 97 09/09/16 04:06 90 09/09/16 04:00 89 09/09/16 04:00 97.7 89 19 138/73 98 09/09/16 03:00 85 09/09/16 03:00 85 24 135/58 97 09/09/16 02:00 111 09/09/16 02:00 111 36 148/95 82 09/09/16 01:00 91 146/88 100 09/09/16 01:00 91 09/09/16 00:30 87 146/70 84 09/09/16 00:30 87 09/09/16 00:08 111 09/09/16 00:08 111 36 167/71 86 09/09/16 00:01 99 09/09/16 00:01 99 23 149/106 97 09/09/16 00:00 97.5 94 27 93 09/09/16 00:00 94 09/08/16 23:30 97 09/08/16 23:30 97 23 140/81 83 09/08/16 23:00 91 09/08/16 23:00 91 16 137/74 96 09/08/16 22:30 91 26 127/52 94 09/08/16 22:00 101 31 133/80 84 09/08/16 22:00 101 09/08/16 21:30 92 30 134/93 95 09/08/16 21:00 95 27 129/78 95 09/08/16 20:00 98.5 95 17 133/70 97 09/08/16 20:00 95 09/08/16 19:28 100 Nasal Cannula 4.00 09/08/16 18:00 87 09/08/16 16:00 92 09/08/16 16:00 97.8 92 28 85/53 91 09/08/16 14:00 97 I/O 09/08/16 09/08/16 09/08/16 09/09/16 09/09/16 09/09/16 07:00 15:00 23:00 07:00 15:00 23:00 Intake Total 320 ml 1361 ml 876 ml 934 ml Output Total 450 ml 1050 ml 1200 ml 1850 ml Balance -130 ml 311 ml -324 ml -916 ml Intake Oral 0 ml 240 ml 0 ml 240 ml IV Total 320 ml 1121 ml 876 ml 694 ml Output Urine Total 450 ml 1050 ml 1200 ml 1850 ml # Bowel Movements 0 0 0 Result Diagram: 09/09/1633409/09/16334 Objective Remarks GENERAL: Not in distress, coherent. CARDIOVASCULAR: Regular rate and rhythm without murmurs RESPIRATORY: Clear to auscultation. Breath sounds equal bilaterally but decreased at the bases. No wheezes GASTROINTESTINAL: Abdomen soft, non-tender, nondistended. No guarding. MUSCULOSKELETAL: Extremities with 1+ edema. able to move her arms and feet, motion limited on her lower extremities due to protective padded boots. Positive for generalized weakness. NEUROLOGICAL: awake and alert, oriented to place but not to time, she knows her birthday. Follows simple commands. 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 Status: Resolved (8) HTN (hypertension) ICD Code: I10 Status: Chronic (9) HLD (hyperlipidemia) ICD Code: E78.5 Status: Chronic (10) MSSA (methicillin susceptible Staphylococcus aureus) septicemia ICD Code: A41.01 Status: Chronic (11) NANCY (acute kidney injury) ICD Code: N17.9 Status: Acute (12) HCAP (healthcare-associated pneumonia) ICD Code: J18.9 Status: Acute (13) S/P AVR ICD Code: Z95.2 Status: Chronic (14) Anasarca ICD Code: R60.1 Status: Acute (15) Acute hypoxemic respiratory failure ICD Code: J96.01 Status: Acute (16) Lower extremity pain, bilateral ICD Code: M79.604 Status: Acute (17) Diabetes ICD Code: E11.9 Status: Acute (18) Ileus ICD Code: K56.7 Status: Acute Assessment and Plan This is a 70-year-old female with history of stroke with hemorrhagic transformation status post coiling of mycotic aneurysm, GI bleeding, recent 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 [employer] infection, UTI, healthcare associated pneumonia - Infectious disease following, continue vancomycin, Zosyn, patient refusing Diflucan. Urine culture positive for yeast. Blood culture negative to date. Monitor urine. - Discussed with [id number], allegedly, neurosurgery from [place] [facility] thinks that the patient may have BU[employer] GRA[employer] infection from MSSA bacteremia. Patient is already on vancomycin. Toxic metabolic encephalopathy-09/05 CT showed possible mass, possible metastatic disease. Neurosurgery consulted, MRI of the brain showed at least 3 small areas of abnormal contrast enhancement that would be consistent w/ metastatic disease, he also have? leptomeningeal disease. Initial plan was to transfer back to [facility], [facility] neurosurgery to talk to Dr. Briceno. Allegedly per patient's [id number], Dr. Barney from [facility] thinks that the patient may have BU[employer]ER GRAIN infection. Awaiting input from neurosurgery. Hematemesis-CT abdomen and pelvis is suggestive of ileus, no BMs recorded. Transfuse as needed, GI following. Acute renal failure-secondary to ATN, nephrology following, continue Bumex drip , start bicarbonate drip. No hydronephrosis is CT scan of the abdomen. Creatinine improving Bilateral pleural effusion-status post recent therapeutic thoracenteses.2-D echo shows mild LVH. Estimated ejection fractions in the range of 55-60%. There is no regional wall motion abnormality. Bileaflet aortic valve prosthesis present. Paroxysmal a-fib, hypertension, status post previous AVR-metoprolol on hold, anticoagulation on hold, cardiology following, aspirin once neurosurgery clears patient. Due to history of GI bleed and intracranial hemorrhage, hold anticoagulation. Per cardiology, poor prognosis, consider palliative care if no improvement. Mycotic aneurysm -S/p coiling. Acute hypoxemic respiratory failure - Likely due to HCAP.VQ scan low probability for PE. Positive nasal cannula 4 L. Lower extremity pain, bilateral -DVT ruled out with bilat venous doppler. Diabetes- hold metformin, sliding scale insulin with NovoLog. Ileus, constipation-GI following, diet as tolerated, GI has signed off, abdominal x-ray showed nonspecific bowel gas pattern, start lactulose, continue other laxatives. Enema today. GI prophylaxis - continue protonix drip dvt prophylaxis - SCD's, pharmacological prophylaxis contraindicated because of recent hemorrhage. Discharge Planning Back to [facility] when ready Problem Qualifiers (1) Hematemesis: Qualified Code: K92.0 - Hematemesis without nausea (2) HTN (hypertension): Qualified Code: I10 - Essential hypertension (3) Diabetes: Qualified Code: E11.9 - Type 2 diabetes mellitus without complication, unspecified chcf insulin use status Ricardo Del Real MD Sep 09, 2016 13:17
[2016-09-09] MEDS ORDERED: MINERAL OIL ENEMA 118 ML BTL RECTAL ONE (14:00)
[2016-09-10] VITALS (17 sets, daily range): BP systolic 101–180; BP diastolic 52–99; PULSE 80–94; RESP 16–26; TEMP 97.6–98.6; O2SAT 9–98
[2016-09-10] MEDS: PIPERACIL-TAZO 4.5 GM PREMIX 100 ML IV SCH ×2 (02:28→14:09)
[2016-09-10] MEDS: DEXAMETHASONE SOD PHOS 4 MG/ML VIAL IV PUSH SCH ×5 (02:30→22:26)
[2016-09-10] MEDS: INSULIN ASPART SUPPLEMENTAL SCALE SQ SCH ×4 (06:30→21:00)
[2016-09-10] MEDS: RIFAMPIN INJ 300 MG in SODIUM CHLORIDE 0.9% INJ 100 ML IV SCH ×2 (06:30→18:00)
[2016-09-10] MEDS: PANTOPRAZOLE SODIUM 40 MG VIAL IV PUSH SCH ×2 (08:08→22:23)
[2016-09-10] MEDS: LACTULOSE SYRUP 20 GM/30 ML CUP PO SCH (08:08)
[2016-09-10] MEDS: POLYETHYLENE GLYCOL 17 GM PKG PO SCH (08:08)
--- NOTE | 2016-09-10 11:31 | HHI.PR ---
Subjective Remarks Since seen in follow-up for sepsis, ?MSSA bacteremia/AVE, metabolic encephalopathy. Discussed with RN and Neurosurgery Dr. Briceno. Patient is more awake and alert but remains confused. She believes she is in [place] and did not know the year or month. She denies any shortness of breath or pain. Objective Vitals Vital Signs Date Time Temp Pulse Resp B/P Pulse Ox O2 Delivery O2 Flow Rate FiO2 09/10/16 10:00 85 09/10/16 08:00 85 09/10/16 08:00 98.0 93 18 180/99 95 09/10/16 07:40 92 Nasal Cannula 2.00 09/10/16 06:00 85 18 166/70 95 09/10/16 06:00 85 09/10/16 05:00 86 16 153/72 94 09/10/16 05:00 86 09/10/16 04:00 89 09/10/16 04:00 97.6 89 17 158/70 93 09/10/16 03:00 89 09/10/16 03:00 89 18 155/71 92 09/10/16 02:00 92 18 161/70 94 09/10/16 02:00 92 09/10/16 01:01 87 18 155/58 98 09/10/16 01:01 87 09/10/16 01:00 88 17 98 09/10/16 01:00 88 09/10/16 00:00 97.7 94 26 148/80 98 09/10/16 00:00 94 09/09/16 23:00 103 09/09/16 23:00 103 25 145/81 94 09/09/16 22:00 100 25 141/83 92 09/09/16 22:00 100 09/09/16 21:00 95 22 148/64 96 09/09/16 21:00 95 09/09/16 20:00 97.8 93 29 171/64 93 09/09/16 20:00 93 09/09/16 19:05 95 Nasal Cannula 2.00 09/09/16 19:00 96 09/09/16 19:00 96 20 178/96 92 09/09/16 18:01 84 25 139/63 91 09/09/16 18:00 88 09/09/16 18:00 88 19 90 09/09/16 17:00 94 25 164/78 94 09/09/16 16:00 97.9 97 25 141/94 83 09/09/16 16:00 97 09/09/16 14:00 95 09/09/16 12:00 98.0 83 18 164/96 93 09/09/16 12:00 83 I/O 09/09/16 09/09/16 09/09/16 09/10/16 09/10/16 09/10/16 07:00 15:00 23:00 07:00 15:00 23:00 Intake Total 934 ml 587 ml 219 ml 437 ml Output Total 1850 ml 2550 ml 1515 ml 1700 ml Balance -916 ml -1963 ml -1296 ml -1263 ml Intake Oral 240 ml 240 ml 0 ml 120 ml IV Total 694 ml 347 ml 219 ml 317 ml Output Urine Total 1850 ml 2550 ml 1515 ml 1700 ml # Bowel Movements 0 0 0 0 Result Diagram: 09/09/16 0335 09/09/16 0335 Imaging Last Impressions Abdomen X-Ray 09/08/16 0000 Signed Impressions: Service Date/Time: Thursday, September 08, 2016 10:03 - CONCLUSION: Nonspecific bowel gas pattern again seen with multiple dilated air-filled loops of small bowel, now predominantly located in the left hemiabdomen. Decrease in the amount of air in the colon. Migue Lockett MD Brain MRI 09/05/16 0000 Signed Impressions: Service Date/Time: Monday, September 05, 2016 16:39 - CONCLUSION: At least three small areas of abnormal contrast enhancement as described above that would be consistent with metastatic disease. Findings are also suspicious for scattered dural enhancement that could be indicative of leptomeningeal disease. Lumbar puncture could be used to confirm. Demetrio Lowery MD FACR Thoracentesis 09/04/16 1540 Signed Impressions: Service Date/Time: Sunday, September 04, 2016 15:34 - CONCLUSION: 1. Uncomplicated right thoracentesis with removal of 600 mL of clear yellow fluid. There is only a minimal amount of right pleural fluid remaining. 2. Small left pleural effusion. There is also bilateral lower lobe atelectasis and patchy consolidation in the lungs bilaterally. Julian Lua MD Lower Extremity Ultrasound 09/04/16 0000 Signed Impressions: Service Date/Time: Sunday, September 04, 2016 09:34 - CONCLUSION: No evidence of DVT. Rohith Gibson MD Head CT 09/04/16 0000 Signed Impressions: Service Date/Time: Sunday, September 04, 2016 15:22 - CONCLUSION: 1. There appears to be an intracranial mass measuring 1.3 cm surrounded by vasogenic edema high along the right cerebral vertex. In a patient with a previous history of breast cancer, metastatic disease is the primary consideration. Recommend MRI of the brain with and without contrast further evaluation. Rohith Gibson MD Lung Scan-V Nuclear Medicine 09/03/16 0000 Signed Impressions: Service Date/Time: Saturday, September 03, 2016 22:02 - CONCLUSION: Low probability for pulmonary embolism. Mikel Ross MD Objective Remarks GENERAL: Obese female in no acute distress CARDIOVASCULAR: Normal rate and irregular rhythm. 2/6 GERARDO murmur heard all over the precordium. RESPIRATORY: Clear to auscultation. Breath sounds equal bilaterally but decreased at the bases. No wheezes GASTROINTESTINAL: Abdomen soft, non-tender, nondistended. No guarding. MUSCULOSKELETAL: Extremities with 1+ edema. able to move her arms and feet. Generalized weakness. NEUROLOGICAL: awake and alert, oriented to self only. Follows simple commands. 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 Status: Resolved (8) HTN (hypertension) ICD Code: I10 Status: Chronic (9) HLD (hyperlipidemia) ICD Code: E78.5 Status: Chronic (10) MSSA (methicillin susceptible Staphylococcus aureus) septicemia ICD Code: A41.01 Status: Chronic (11) NANCY (acute kidney injury) ICD Code: N17.9 Status: Acute (12) HCAP (healthcare-associated pneumonia) ICD Code: J18.9 Status: Acute (13) S/P AVR ICD Code: Z95.2 Status: Chronic (14) Anasarca ICD Code: R60.1 Status: Acute (15) Acute hypoxemic respiratory failure ICD Code: J96.01 Status: Acute (16) Lower extremity pain, bilateral ICD Code: M79.604 Status: Acute (17) Diabetes ICD Code: E11.9 Status: Acute (18) Ileus ICD Code: K56.7 Status: Acute Assessment and Plan 70-year-old female with history of stroke with hemorrhagic transformation status post coiling of mycotic aneurysm, GI bleeding, recent 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 Sepsis secondary to MSSA bacteremia secondary to prosthetic valve endocarditis, [employer] infection, small brain abscesses, UTI, healthcare associated pneumonia - Infectious disease following, continue vancomycin, Zosyn, rifampin. - Case discussed with neurosurgery, Dr. Briceno. Initial plan was to transfer to [facility]. Neurosurgeon at the [facility] reviewed the records and suggests the brain findings are more consistent with small abscesses that cannot be surgically drained at this time. The recommendation is to continue IV antibiotics and repeat MRI in 6-8 weeks. This was communicated to the family. - ID following Brain lesions: Per MRI findings. See above. Toxic metabolic encephalopathy-09/05 CT showed possible mass, MRI concerning for metastatic lesions. Per Neurosurgery findings more consistent with small brain abscess. - Encephalopathy improving. Continue to monitor. Hematemesis-CT abdomen and pelvis is suggestive of ileus, no BMs recorded. Transfuse as needed, GI following. Acute renal failure-secondary to ATN, nephrology following, continue Bumex drip, bicarbonate drip. No hydronephrosis is CT scan of the abdomen. Creatinine improving Bilateral pleural effusion-status post recent therapeutic thoracenteses.2-D echo shows mild LVH. Estimated ejection fractions in the range of 55-60%. There is no regional wall motion abnormality. Bileaflet aortic valve prosthesis present. Paroxysmal a-fib, hypertension, status post previous AVR-metoprolol on hold, anticoagulation on hold, cardiology following, aspirin once neurosurgery clears patient. Due to history of GI bleed and intracranial hemorrhage, hold anticoagulation. Per cardiology, poor prognosis, consider palliative care if no improvement. Mycotic aneurysm -S/p coiling. Acute hypoxemic respiratory failure - Likely due to HCAP.VQ scan low probability for PE. Positive nasal cannula 4 L. Lower extremity pain, bilateral -DVT ruled out with bilat venous doppler. Diabetes- hold metformin, sliding scale insulin with NovoLog. Ileus, constipation-GI following, diet as tolerated, GI has signed off, abdominal x-ray showed nonspecific bowel gas pattern, start lactulose, continue other laxatives. GI prophylaxis - continue protonix drip dvt prophylaxis - SCD's, pharmacological prophylaxis contraindicated because of recent hemorrhage. Case [facility] Neurosurgery Dr. Briceno. Discharge Planning Continue care in the ICU, on Bumex drip. If continues to improve, may consider transfer to floor in the next couple of days. Problem Qualifiers (1) Hematemesis: Qualified Code: K92.0 - Hematemesis without nausea (2) HTN (hypertension): Qualified Code: I10 - Essential hypertension (3) Diabetes: Qualified Code: E11.9 - Type 2 diabetes mellitus without complication, unspecified long-term insulin use status Violetta Diego MD Sep 10, 2016 11:31
[2016-09-10 14:47] LABS: BICARBONATE 27.8 MEQ/L (21.0-32.0); POTASSIUM 3.5 MEQ/L (3.5-5.1)
[2016-09-10 15:18] LABS: CALCIUM-PROTEIN CORRECTED 8.1 MG/DL (8.5-10.1)
--- NOTE | 2016-09-10 15:38 | HHI.NPPN ---
Subjective History of Present Illness 70-year-old female with a past medical history of atrial fibrillation, history of GI bleeding, hypertension, ischemic heart disease, congestive heart failure, history of breast cancer with post mastectomy, colon cancer, was transferred here from [facility]. I was called for elevated BUN/Creatinine and decrease urine out put. Additional Remarks Patient is more alert, and oriented times 2, not in distress. Objective Data Data 09/09/16 09/10/16 19:00 07:00 Intake Total 587 ml 656 ml Output Total 2550 ml 3215 ml Balance -1963 ml -2559 ml Intake Oral 240 ml 120 ml IV Total 347 ml 536 ml Output Urine Total 2550 ml 3215 ml # Bowel Movements 0 0 Vital Signs Date Time Temp Pulse Resp B/P Pulse Ox O2 Delivery O2 Flow Rate FiO2 09/10/16 14:00 93 09/10/16 12:00 98.0 90 18 173/71 95 09/10/16 12:00 88 09/10/16 10:00 85 09/10/16 08:00 85 09/10/16 08:00 98.0 93 18 180/99 95 09/10/16 07:40 92 Nasal Cannula 2.00 09/10/16 06:00 85 18 166/70 95 09/10/16 06:00 85 09/10/16 05:00 86 16 153/72 94 09/10/16 05:00 86 09/10/16 04:00 89 09/10/16 04:00 97.6 89 17 158/70 93 09/10/16 03:00 89 09/10/16 03:00 89 18 155/71 92 09/10/16 02:00 92 18 161/70 94 09/10/16 02:00 92 09/10/16 01:01 87 18 155/58 98 09/10/16 01:01 87 09/10/16 01:00 88 17 98 09/10/16 01:00 88 09/10/16 00:00 97.7 94 26 148/80 98 09/10/16 00:00 94 09/09/16 23:00 103 09/09/16 23:00 103 25 145/81 94 09/09/16 22:00 100 25 141/83 92 09/09/16 22:00 100 09/09/16 21:00 95 22 148/64 96 09/09/16 21:00 95 09/09/16 20:00 97.8 93 29 171/64 93 09/09/16 20:00 93 09/09/16 19:05 95 Nasal Cannula 2.00 09/09/16 19:00 96 09/09/16 19:00 96 20 178/96 92 09/09/16 18:01 84 25 139/63 91 09/09/16 18:00 88 09/09/16 18:00 88 19 90 09/09/16 17:00 94 25 164/78 94 09/09/16 16:00 97.9 97 25 141/94 83 09/09/16 16:00 97 -: 09/09/16 0335 09/10/16 1330 Physical Exam General Appearance: No Acute Distress, Comfortable Eyes Eye Exam: Pupils Equal Throat Throat Exam: Oral Mucosa [place] & Moist Neck Neck Exam: Neck Supple Pulmonary Resp Exam: No Distress, Rhonchi, Decreased Bases, Diminished Breath Sounds Cardiology CV Exam: Regular, Normal Sinus Rhythm Gastrointestinal/Abdomen GI Exam: Soft, Non-Tender, Distended Extremeties Extremities Exam: Moderate Edema, Pitting Edema Neurologic Neuro Exam: Alert, Awake Psychiatric Psych Exam: Appropriate Responses Assessment/Plan Assessment Summary: NANCY/Acute Renal Failure Electrolyte Assessment: Metabolic Acidosis Problem List: (1) Hemorrhagic stroke (2) Diabetes (3) Paroxysmal a-fib (4) Anemia (5) Obesity (6) Hematemesis (7) Encephalopathy (8) NANCY (acute kidney injury) Plan patient's urine output improved with Bumex drip. She continues to have significant lower extremity swelling. Continue Bumex. She is now on Rifampin and Zosyn. Avoid nephrotoxic agents. Creatinine is slightly better. Continue Bumex. Problem Qualifiers (1) Diabetes: (2) Hematemesis: Qualified Code: K92.0 - Hematemesis without nausea Sachin Winters MD Sep 10, 2016 15:38
--- NOTE | 2016-09-10 16:20 | HHI.IDPN ---
Subjective Subjective Remarks Patient is a 70-year-old female, transferred from [facility] to the [facility] after she had coffee ground emesis, and hypoxemia. Patient was initially at [facility] with an acute GI bleed back in July 2016. She had a very high pro-time, and she had been on Coumadin for her atrial fibrillation and aVR. GI workup at that time did not reveal any active source of bleeding. 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 She was started on anticoagulation, and had hemorrhagic conversion of her stroke. She underwent CTA and finding showed suggestion of mycotic aneurysm. She apparently developed sepsis at that time and required pressors for shock, she was intubated. She was subsequently transferred to the [facility] on August 12, and underwent coiling. 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 RADHA however did not show any vegetation in any of her valves. She subsequently improved and got extubated. She was transferred to [facility] for comprehensive rehabilitation on August 28, 2016. Infectious disease recommendation at that time is for her to complete Rocephin and rifampin September. While at [place], she was doing rehabilitation. She's had some problem with lethargy. On the day of admission she apparently had nausea and vomiting and had some abdominal pain and some chest pain. She had coffee ground emesis. Her O2 saturation at that time was in the 70s, and she appeared dyspneic. She was therefore admitted to the [facility] for closer monitoring and further evaluation and treatment. While at [place] she had 2 units of packed RBC that was transfused. Her hemoglobin was staying around 10, and on the day of admission it was down to 8. She's had some low-grade temps. According to the nurse she's been very lethargic this morning. Patient just came back from the radiology department for she had thoracenteses as well as CT of the head. Patient currently is on nasal O2. She is not on any pressors. Monitor shows atrial fibrillation. CT of the abdomen and pelvis showed possible ileus, and she had evidence of bilateral pleural effusion and consolidation. She also had a urinalysis which showed some pyuria. Patient's urine output has been low, and her creatinine had gone up to 1.44. It was 0.8 previously. Infectious disease consultation has been requested to evaluate patient with multiple problems including sepsis, UTI, possible pneumonia. Notes reviewed D/W RN Temps ok She is awake and alert; confused Per RN, [place] did not think transfer needed Not SOB UO good On bumex drip Creatinine improving All BC negative Pleural fluid C/S negative Reviewed records from [place] Her CVA was R frontal; has coling of MCA aneurysm BC with MSSA Plans to complete Rx 09/29 Antibiotics Vanco Zosyn Rifampin Lines LUE PICC - no evidence of infection Past Medical History Reviewed Allergies: Coded Allergies: Codeine (Verified Allergy, Unknown, 08/27/16) Haldol (Verified Allergy, Unknown, 08/27/16) Objective . Vital Signs Date Time Temp Pulse Resp B/P Pulse Ox O2 Delivery O2 Flow Rate FiO2 09/10/16 14:00 93 09/10/16 12:00 98.0 90 18 173/71 95 09/10/16 12:00 88 09/10/16 10:00 85 09/10/16 08:00 85 09/10/16 08:00 98.0 93 18 180/99 95 09/10/16 07:40 92 Nasal Cannula 2.00 09/10/16 06:00 85 18 166/70 95 09/10/16 06:00 85 09/10/16 05:00 86 16 153/72 94 09/10/16 05:00 86 09/10/16 04:00 89 09/10/16 04:00 97.6 89 17 158/70 93 09/10/16 03:00 89 09/10/16 03:00 89 18 155/71 92 09/10/16 02:00 92 18 161/70 94 09/10/16 02:00 92 09/10/16 01:01 87 18 155/58 98 09/10/16 01:01 87 09/10/16 01:00 88 17 98 09/10/16 01:00 88 09/10/16 00:00 97.7 94 26 148/80 98 09/10/16 00:00 94 09/09/16 23:00 103 09/09/16 23:00 103 25 145/81 94 09/09/16 22:00 100 25 141/83 92 09/09/16 22:00 100 09/09/16 21:00 95 22 148/64 96 09/09/16 21:00 95 09/09/16 20:00 97.8 93 29 171/64 93 09/09/16 20:00 93 09/09/16 19:05 95 Nasal Cannula 2.00 09/09/16 19:00 96 09/09/16 19:00 96 20 178/96 92 09/09/16 18:01 84 25 139/63 91 09/09/16 18:00 88 09/09/16 18:00 88 19 90 09/09/16 17:00 94 25 164/78 94 09/09/16 09/09/16 09/10/16 15:00 23:00 07:00 Intake Total 587 ml 219 ml 437 ml Output Total 2550 ml 1515 ml 1700 ml Balance -1963 ml -1296 ml -1263 ml Intake Oral 240 ml 0 ml 120 ml IV Total 347 ml 219 ml 317 ml Output Urine Total 2550 ml 1515 ml 1700 ml # Bowel Movements 0 0 0 . Laboratory Tests Test 09/09/16 03:35 White Blood Count 4.1 TH/MM3 Red Blood Count 3.02 MIL/MM3 Hemoglobin 8.8 GM/DL Hematocrit 27.6 % Mean Corpuscular Volume 91.7 FL Mean Corpuscular Hemoglobin 29.2 PG Mean Corpuscular Hemoglobin 31.9 % Concent Red Cell Distribution Width 21.7 % Platelet Count 129 TH/MM3 Mean Platelet Volume 8.5 FL Neutrophils (%) (Auto) 88.2 % Lymphocytes (%) (Auto) 9.0 % Monocytes (%) (Auto) 2.7 % Eosinophils (%) (Auto) 0.0 % Basophils (%) (Auto) 0.1 % Neutrophils # (Auto) 3.6 TH/MM3 Lymphocytes # (Auto) 0.4 TH/MM3 Monocytes # (Auto) 0.1 TH/MM3 Eosinophils # (Auto) 0.0 TH/MM3 Basophils # (Auto) 0.0 TH/MM3 CBC Comment AUTO DIFF Differential Total Cells 100 Counted Neutrophils % (Manual) 79 % Band Neutrophils % 9 % Lymphocytes % 9 % Monocytes % 1 % Neutrophils # (Manual) 3.7 TH/MM3 Metamyelocytes 1 % Myelocytes 1 % Differential Comment FINAL DIFF MANUAL Platelet Estimate LOW Platelet Morphology Comment ENLARGED Ovalocytes 1+ Acanthocytes OCC Keratocytes OCC Laboratory Tests Test 09/09/16 09/10/16 03:35 13:30 Sodium Level 137 MEQ/L 136 MEQ/L Potassium Level 4.1 MEQ/L 3.5 MEQ/L Chloride Level 100 MEQ/L 99 MEQ/L Carbon Dioxide Level 27.0 MEQ/L 27.8 MEQ/L Anion Gap 10 MEQ/L 9 MEQ/L Blood Urea Nitrogen 36 MG/DL 33 MG/DL Creatinine 1.52 MG/DL 1.37 MG/DL Estimat Glomerular Filtration 34 ML/MIN 38 ML/MIN Rate Random Glucose 171 MG/DL 250 MG/DL Calcium Level 7.2 MG/DL 7.4 MG/DL Protein Corrected Calcium 8.2 MG/DL 8.1 MG/DL Total Protein 5.3 GM/DL 5.8 GM/DL Imaging Abdomen X-Ray 09/08/16 0000 Signed Impressions: Service Date/Time: Thursday, September 08, 2016 10:03 - CONCLUSION: Nonspecific bowel gas pattern again seen with multiple dilated air-filled loops of small bowel, now predominantly located in the left hemiabdomen. Decrease in the amount of air in the colon. Migue Lockett MD Last Impressions Thoracentesis 09/04/16 1540 Signed Impressions: Service Date/Time: Sunday, September 04, 2016 15:34 - CONCLUSION: 1. Uncomplicated right thoracentesis with removal of 600 mL of clear yellow fluid. There is only a minimal amount of right pleural fluid remaining. 2. Small left pleural effusion. There is also bilateral lower lobe atelectasis and patchy consolidation in the lungs bilaterally. Julian Lua MD Lower Extremity Ultrasound 09/04/16 0000 Signed Impressions: Service Date/Time: Sunday, September 04, 2016 09:34 - CONCLUSION: No evidence of DVT. Rohith Gibson MD Head CT 09/04/16 0000 Signed Impressions: Service Date/Time: Sunday, September 04, 2016 15:22 - CONCLUSION: 1. There appears to be an intracranial mass measuring 1.3 cm surrounded by vasogenic edema high along the right cerebral vertex. In a patient with a previous history of breast cancer, metastatic disease is the primary consideration. Recommend MRI of the brain with and without contrast further evaluation. Rohith Gibson MD Lung Scan- Nuclear Medicine 09/03/16 0000 Signed Impressions: Service Date/Time: Saturday, September 03, 2016 22:02 - CONCLUSION: Low probability for pulmonary embolism. Mikel Ross MD Physical Exam GENERAL: awake and alert, confused, not in respiratory distress. SKIN: Warm and dry. No generalized rash, no evidence of embolic lesions. HEENT: [place] conjunctiva. Has resolving scleral hemorrhage on R, and has improving scleral edema. Pupils equal, round and reactive to light. Moist oral mucosa EARS, NOSE AND THROAT: Nose without bleeding or purulent nasal discharge. Moist oral mucosa. NECK: Trachea midline. Supple and not tender, no meningeal signs CARDIOVASCULAR: Irregular rate and rhythm. Has harsh systolic murmur at base of the heart. RESPIRATORY: Coarse breath sounds bilaterally. No rales, wheezing or rhonchi. Decreased at bases ABDOMEN: Globular and distended, has a large incisional/ventral hernia, has diffuse mild tenderness, no guarding or rebound, bowel sounds present and hypoactive. EXTREMITIES: No clubbing, cyanosis. Both feet cool to touch, no mottling. Skin tight both LE. No calf tenderness. NEUROLOGICAL: No facial asymmetry, full EOM, tongue midline. Equal motor strength PSYCHIATRIC: Calm and cooperative LINE: No evidence of infection : Ruiz in place, clear yellow urine Assessment & Plan Remarks IMPRESSION Sepsis, source? - has UTI - ?new PNA, ?aspiration - on Rx for MSSA sepsis, and presumed PVE, AVR, RADHA negative - has ileus Recurrent GIB CVA, S/P coiling of aneurysm Chronic atrial fib S/P AVR 2006 Renal insufficiency, ?due to sepsis - improving 3 enhancing masses on MRI, etiology, ?mets Candiduria RECOMMENDATION Continue Vanco - give dose tomorrow and check level on Saturday Stop Zosyn Continue Rifampin Restart IV Rocephin Follow C/S Repeat UA and C/S Monitor progress D/W Mary Kelley MD Sep 10, 2016 16:20
[2016-09-10] MEDS: cefTRIAXone INJ 2,000 MG in SODIUM CHLORIDE 0.9% INJ 100 ML IV SCH (17:19)
[2016-09-10 19:22] LABS: BLOOD, URINE TRACE (NEG); COMMENT (UR) CULT NOT INDICATED; CULTURE IF INDICATED CULT NOT INDICATED; GLUCOSE,URINE NEG (NEG); KETONE, URINE NEG (NEG); MUCUS URINE FEW /lpf (OCC); NITRITE,URINE NEG (NEG); URINE COLOR YELLOW (YELLW/STRAW)
[2016-09-11] VITALS (22 sets, daily range): BP systolic 132–199; BP diastolic 61–95; PULSE 91–114; RESP 16–28; TEMP 98.3–98.9; O2SAT 79–97
[2016-09-11] MEDS: cefTRIAXone INJ 2,000 MG in SODIUM CHLORIDE 0.9% INJ 100 ML IV SCH ×2 (06:37→16:38)
[2016-09-11] MEDS: RIFAMPIN INJ 300 MG in SODIUM CHLORIDE 0.9% INJ 100 ML IV SCH ×2 (06:41→18:03)
[2016-09-11] MEDS: DEXAMETHASONE SOD PHOS 4 MG/ML VIAL IV PUSH SCH ×4 (06:42→22:26)
[2016-09-11] MEDS: INSULIN ASPART SUPPLEMENTAL SCALE SQ SCH ×4 (06:48→22:31)
[2016-09-11 07:17] LABS: HEMATOCRIT 30.8 % (35.0-46.0); MEAN CORPUSCULAR HEMOGLOBIN 28.9 PG (27.0-34.0); MEAN CORPUSCULAR HGB CONC 31.8 % (32.0-36.0); PLATELET COUNT 168 TH/MM3 (150-450); RED BLOOD COUNT 3.39 MIL/MM3 (4.00-5.30); RED CELL DISTRIBUTION WIDTH 21.3 % (11.6-17.2); REVIEW FLAG FINAL; WHITE BLOOD COUNT 5.3 TH/MM3 (4.0-11.0)
[2016-09-11 07:49] LABS: BICARBONATE 28.8 MEQ/L (21.0-32.0); POTASSIUM 3.1 MEQ/L (3.5-5.1)
[2016-09-11 07:51] LABS: INDIRECT BILIRUBIN 0.3 MG/DL (0.0-0.8)
[2016-09-11] MEDS ORDERED: POLYETHYLENE GLYCOL 17 GM PKG PO PRN (09:15)
[2016-09-11] MEDS ORDERED: LACTULOSE SYRUP 20 GM/30 ML CUP PO PRN (09:15)
[2016-09-11] MEDS: POTASSIUM CHLOR 20 MEQ PREMIX 100 ML IV SCH ×2 (09:34→10:49)
[2016-09-11] MEDS: PANTOPRAZOLE SODIUM 40 MG VIAL IV PUSH SCH ×2 (09:34→22:26)
--- NOTE | 2016-09-11 09:59 | HHI.PR ---
Subjective Remarks Pt has no complaints other than she has to have a BM. No CP/SOB/N/V Objective Vitals Vital Signs Date Time Temp Pulse Resp B/P Pulse Ox O2 Delivery O2 Flow Rate FiO2 09/11/16 07:56 96 Nasal Cannula 2.00 09/11/16 06:00 95 09/11/16 04:00 98.6 91 16 132/61 96 09/11/16 02:00 95 09/11/16 00:00 95 09/11/16 00:00 98.3 95 19 157/68 95 09/10/16 22:00 94 09/10/16 20:00 98.6 92 19 101/52 97 09/10/16 20:00 92 09/10/16 18:00 93 09/10/16 16:00 93 09/10/16 16:00 97.8 80 18 145/63 9 09/10/16 14:00 93 09/10/16 12:00 98.0 90 18 173/71 95 09/10/16 12:00 88 09/10/16 10:00 85 I/O 09/10/16 09/10/16 09/10/16 09/11/16 09/11/16 09/11/16 07:00 15:00 23:00 07:00 15:00 23:00 Intake Total 437 ml 630 ml 587 ml Output Total 1700 ml 1450 ml 2700 ml Balance -1263 ml -820 ml -2113 ml Intake Oral 120 ml 280 ml IV Total 317 ml 350 ml 587 ml Output Urine Total 1700 ml 1450 ml 2700 ml # Bowel Movements 0 1 Result Diagram: 09/11/16 0645 09/11/16 0645 Imaging Last Impressions Abdomen X-Ray 09/08/16 0000 Signed Impressions: Service Date/Time: Thursday, September 08, 2016 10:03 - CONCLUSION: Nonspecific bowel gas pattern again seen with multiple dilated air-filled loops of small bowel, now predominantly located in the left hemiabdomen. Decrease in the amount of air in the colon. Migue Lockett MD Brain MRI 09/05/16 0000 Signed Impressions: Service Date/Time: Monday, September 05, 2016 16:39 - CONCLUSION: At least three small areas of abnormal contrast enhancement as described above that would be consistent with metastatic disease. Findings are also suspicious for scattered dural enhancement that could be indicative of leptomeningeal disease. Lumbar puncture could be used to confirm. Demetrio Lowery MD FACR Thoracentesis 09/04/16 1540 Signed Impressions: Service Date/Time: Sunday, September 04, 2016 15:34 - CONCLUSION: 1. Uncomplicated right thoracentesis with removal of 600 mL of clear yellow fluid. There is only a minimal amount of right pleural fluid remaining. 2. Small left pleural effusion. There is also bilateral lower lobe atelectasis and patchy consolidation in the lungs bilaterally. Julian Lua MD Lower Extremity Ultrasound 09/04/16 0000 Signed Impressions: Service Date/Time: Sunday, September 04, 2016 09:34 - CONCLUSION: No evidence of DVT. Rohith Gibson MD Head CT 09/04/16 0000 Signed Impressions: Service Date/Time: Sunday, September 04, 2016 15:22 - CONCLUSION: 1. There appears to be an intracranial mass measuring 1.3 cm surrounded by vasogenic edema high along the right cerebral vertex. In a patient with a previous history of breast cancer, metastatic disease is the primary consideration. Recommend MRI of the brain with and without contrast further evaluation. Rohith Gibson MD Lung Scan-V Nuclear Medicine 09/03/16 0000 Signed Impressions: Service Date/Time: Saturday, September 03, 2016 22:02 - CONCLUSION: Low probability for pulmonary embolism. Mikel Ross MD Objective Remarks GENERAL: This is a well-nourished, well-developed patient, nad. CARDIOVASCULAR: Regular rate and rhythm without murmurs RESPIRATORY: Clear to auscultation. Breath sounds equal bilaterally but decreased at the bases. No wheezes GASTROINTESTINAL: Abdomen soft, non-tender, nondistended. No guarding. MUSCULOSKELETAL: Extremities with 1+ edema. able to move her arms and feet, motion limited on her lower extremities due to protective padded boots. NEUROLOGICAL: awake and alert but confused. knows the year is 2016 and that she is at [facility] but thinks the month is december 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 Status: Resolved (8) HTN (hypertension) ICD Code: I10 Status: Chronic (9) HLD (hyperlipidemia) ICD Code: E78.5 Status: Chronic (10) MSSA (methicillin susceptible Staphylococcus aureus) septicemia ICD Code: A41.01 Status: Chronic (11) NANCY (acute kidney injury) ICD Code: N17.9 Status: Acute (12) HCAP (healthcare-associated pneumonia) ICD Code: J18.9 Status: Acute (13) S/P AVR ICD Code: Z95.2 Status: Chronic (14) Anasarca ICD Code: R60.1 Status: Acute (15) Acute hypoxemic respiratory failure ICD Code: J96.01 Status: Acute (16) Lower extremity pain, bilateral ICD Code: M79.604 Status: Acute (17) Diabetes ICD Code: E11.9 Status: Acute (18) Ileus ICD Code: K56.7 Status: Acute Assessment and Plan 70-year-old female with history of stroke with hemorrhagic transformation status post coiling of mycotic aneurysm, GI bleeding, recent MSSA 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 Sepsis secondary to MSSA bacteremia secondary to prosthetic valve endocarditis, [employer] infection, small brain abscesses, UTI, healthcare associated pneumonia - Infectious disease following, continue rifampin, vanco and now rocephin, s/p zosyn - Initial plan was to transfer to [facility]. Neurosurgeon at the [facility] reviewed the records and suggests the brain findings are more consistent with small abscesses that cannot be surgically drained at this time. The recommendation is to continue IV antibiotics and repeat MRI in 6-8 weeks. This was communicated to the family. apparently per CM notes, family requesting transfer to [facility] - ID following. Appreciate assistance. Brain lesions: Per MRI findings. See above. Toxic metabolic encephalopathy-09/05 CT showed possible mass, MRI concerning for metastatic lesions. Per Neurosurgery findings more consistent with small brain abscess. - Encephalopathy improving. Continue to monitor. Hematemesis-CT abdomen and pelvis is suggestive of ileus, Per RN, pt having BMs. Transfuse as needed, GI following. Acute renal failure-secondary to ATN, nephrology following, continue Bumex drip , s/p bicarbonate drip. No hydronephrosis is CT scan of the abdomen. Creatinine improving down to 1.08 Bilateral pleural effusion-status post recent therapeutic thoracenteses.2-D echo shows mild LVH. Estimated ejection fractions in the range of 55-60%. There is no regional wall motion abnormality. Bileaflet aortic valve prosthesis present. Paroxysmal a-fib, hypertension, status post previous AVR-metoprolol on hold, anticoagulation on hold, cardiology following, aspirin once neurosurgery clears patient. Due to history of GI bleed and intracranial hemorrhage, hold anticoagulation. Per cardiology, poor prognosis, consider palliative care if no improvement. Mycotic aneurysm -S/p coiling. Acute hypoxemic respiratory failure - Likely due to HCAP.VQ scan low probability for PE. Positive nasal cannula 4 L. Lower extremity pain, bilateral -DVT ruled out with bilat venous doppler. Diabetes- hold metformin, sliding scale insulin with NovoLog. Ileus, constipation-GI following, diet as tolerated, GI has signed off, abdominal x-ray showed nonspecific bowel gas pattern, start lactulose, continue other laxatives. speech eval to make sure she can tolarate po then advance diet as pt has been on a liquid diet per RN GI prophylaxis - continue protonix drip dvt prophylaxis - SCD's, pharmacological prophylaxis contraindicated because of recent hemorrhage. Discharge Planning Continue care in the ICU, on Bumex drip. If continues to improve, may consider transfer to floor in the next couple of days. CM assisting w transfer Problem Qualifiers (1) Hematemesis: Qualified Code: K92.0 - Hematemesis without nausea (2) HTN (hypertension): Qualified Code: I10 - Essential hypertension (3) Diabetes: Qualified Code: E11.9 - Type 2 diabetes mellitus without complication, unspecified manager terminal insulin use status Grisel Thurman MD Sep 11, 2016 09:59
[2016-09-11] MEDS ORDERED: VANCOMYCIN INJ 1,750 MG in SODIUM CHLORID 0.9% 500 ML INJ 500 ML IV ONE (11:00)
--- NOTE | 2016-09-11 16:12 | HHI.NPPN ---
Subjective History of Present Illness 70-year-old female with a past medical history of atrial fibrillation, history of GI bleeding, hypertension, ischemic heart disease, congestive heart failure, history of breast cancer with post mastectomy, colon cancer, was transferred here from [facility]. I was called for elevated BUN/Creatinine and decrease urine out put. Additional Remarks Patient is more alert, and now oriented,feeling better. Objective Data Data 09/10/16 09/11/16 19:00 07:00 Intake Total 630 ml Output Total 1450 ml Balance -820 ml Intake Oral 280 ml IV Total 350 ml Output Urine Total 1450 ml # Bowel Movements 1 Vital Signs Date Time Temp Pulse Resp B/P Pulse Ox O2 Delivery O2 Flow Rate FiO2 09/11/16 14:00 107 09/11/16 12:00 93 09/11/16 12:00 98.3 93 23 140/84 96 09/11/16 11:00 95 18 143/83 97 09/11/16 10:00 98 09/11/16 10:00 98 22 145/81 95 09/11/16 10:00 98 22 145/81 95 09/11/16 09:00 96 22 162/67 96 09/11/16 09:00 96 22 162/67 96 09/11/16 08:00 95 09/11/16 08:00 98.6 95 19 156/74 96 09/11/16 08:00 95 19 156/74 96 09/11/16 07:56 96 Nasal Cannula 2.00 09/11/16 07:00 97 19 156/75 96 09/11/16 06:00 95 18 155/70 95 09/11/16 06:00 95 09/11/16 05:00 110 21 140/89 79 09/11/16 04:00 91 16 132/61 96 09/11/16 04:00 98.6 91 16 132/61 96 09/11/16 02:00 95 09/11/16 00:00 95 09/11/16 00:00 98.3 95 19 157/68 95 09/10/16 22:00 94 09/10/16 20:00 98.6 92 19 101/52 97 09/10/16 20:00 92 09/10/16 18:00 93 -: 09/11/16 0645 09/11/16 0645 Physical Exam General Appearance: No Acute Distress, Comfortable Eyes Eye Exam: Pupils Equal Throat Throat Exam: Oral Mucosa [place] & Moist Neck Neck Exam: Neck Supple Pulmonary Resp Exam: No Distress, Rhonchi, Decreased Bases, Diminished Breath Sounds Cardiology CV Exam: Regular, Normal Sinus Rhythm Gastrointestinal/Abdomen GI Exam: Soft, Non-Tender, Distended Extremeties Extremities Exam: Moderate Edema, Pitting Edema Neurologic Neuro Exam: Alert, Awake Psychiatric Psych Exam: Appropriate Responses Assessment/Plan Assessment Summary: NANCY/Acute Renal Failure Electrolyte Assessment: Metabolic Acidosis Problem List: (1) Hemorrhagic stroke (2) Diabetes (3) Paroxysmal a-fib (4) Anemia (5) Obesity (6) Hematemesis (7) Encephalopathy (8) NANCY (acute kidney injury) Plan patient's urine output improved with Bumex drip. She continues to have significant lower extremity swelling. Continue Bumex. She is now on Rifampin and Zosyn. Avoid nephrotoxic agents. Creatinine is now 1.0, K was low and replaced. Change Bumex to TID. Follow urine out put and BMP. Problem Qualifiers (1) Diabetes: (2) Hematemesis: Qualified Code: K92.0 - Hematemesis without nausea Sachin Winters MD Sep 11, 2016 16:12
[2016-09-11] MEDS: BUMETANIDE INJ 1 MG/4 ML VIAL IV PUSH SCH (18:03)
[2016-09-11] MEDS ORDERED: cloNIDine HCL 0.1 MG TAB PO PRN (18:30)
[2016-09-11] MEDS ORDERED: hydrALAZINE HCL 20 MG/ML VIAL IV PUSH PRN (18:30)
[2016-09-12] VITALS (32 sets, daily range): BP systolic 98–189; BP diastolic 63–84; PULSE 79–109; RESP 16–32; TEMP 96.2–98.4; O2SAT 90–100
[2016-09-12] MEDS ORDERED: ACETAMINOPHEN 500 MG CPLT PO PRN (02:45)
[2016-09-12] MEDS ORDERED: MENTHOL LOZENGE BUCCAL PRN (02:45)
[2016-09-12] MEDS: RIFAMPIN INJ 300 MG in SODIUM CHLORIDE 0.9% INJ 100 ML IV SCH ×2 (05:51→18:08)
[2016-09-12] MEDS: DEXAMETHASONE SOD PHOS 4 MG/ML VIAL IV PUSH SCH ×4 (05:51→23:54)
[2016-09-12] MEDS: cefTRIAXone INJ 2,000 MG in SODIUM CHLORIDE 0.9% INJ 100 ML IV SCH (05:51)
[2016-09-12] MEDS: INSULIN ASPART SUPPLEMENTAL SCALE SQ SCH ×4 (06:03→22:19)
[2016-09-12 07:08] LABS: HEMATOCRIT 27.7 % (35.0-46.0); REVIEW FLAG FINAL
[2016-09-12] MEDS ORDERED: PROPOFOL 200 MG/20 ML AMP IV ONE (08:21)
[2016-09-12] MEDS: BUMETANIDE INJ 1 MG/4 ML VIAL IV PUSH SCH ×3 (08:33→17:34)
[2016-09-12] MEDS: PANTOPRAZOLE SODIUM 40 MG VIAL IV PUSH SCH ×2 (08:33→22:13)
--- NOTE | 2016-09-12 11:12 | HHI.NPPN ---
Subjective History of Present Illness 70-year-old female with a past medical history of atrial fibrillation, history of GI bleeding, hypertension, ischemic heart disease, congestive heart failure, history of breast cancer with post mastectomy, colon cancer, was transferred here from [facility]. I was called for elevated BUN/Creatinine and decrease urine out put. Additional Remarks Patient is more alert, and again confused, not in distress, oriented times 2. Objective Data Data 09/11/16 09/12/16 19:00 07:00 Intake Total 1794 ml 501 ml Output Total 5775 ml 2350 ml Balance -3981 ml -1849 ml Intake Oral 300 ml 120 ml IV Total 1494 ml 381 ml Output Urine Total 5775 ml 2350 ml # Bowel Movements 3 1 Vital Signs Date Time Temp Pulse Resp B/P Pulse Ox O2 Delivery O2 Flow Rate FiO2 09/12/16 10:00 85 09/12/16 09:00 92 19 154/67 93 09/12/16 08:42 92 Nasal Cannula 2.00 09/12/16 08:00 97.6 85 16 140/63 94 09/12/16 08:00 85 09/12/16 07:00 89 16 148/82 96 09/12/16 06:00 93 09/12/16 06:00 82 24 145/63 92 09/12/16 05:00 90 17 146/68 95 09/12/16 04:00 95 16 147/66 94 09/12/16 04:00 95 09/12/16 04:00 98.2 95 16 147/66 94 09/12/16 02:00 101 09/12/16 00:00 98.4 101 23 170/81 90 09/12/16 00:00 101 09/11/16 22:00 103 09/11/16 20:52 92 Nasal Cannula 2.00 09/11/16 20:00 108 09/11/16 20:00 98.6 108 25 161/81 91 09/11/16 18:00 101 09/11/16 17:01 105 22 199/90 97 09/11/16 17:00 104 21 96 09/11/16 16:00 114 09/11/16 16:00 98.9 98 22 147/95 97 09/11/16 15:00 101 28 153/86 94 09/11/16 14:00 99 22 153/76 97 09/11/16 14:00 107 09/11/16 13:00 95 20 140/72 97 09/11/16 12:00 93 09/11/16 12:00 98.3 93 23 140/84 96 09/11/16 12:00 93 23 140/84 96 -: 09/12/16 0550 09/11/16 0645 Physical Exam General Appearance: No Acute Distress, Comfortable Eyes Eye Exam: Pupils Equal Throat Throat Exam: Oral Mucosa [place] & Moist Neck Neck Exam: Neck Supple Pulmonary Resp Exam: No Distress, Rhonchi, Decreased Bases, Diminished Breath Sounds Cardiology CV Exam: Regular, Normal Sinus Rhythm Gastrointestinal/Abdomen GI Exam: Soft, Non-Tender, Distended Extremeties Extremities Exam: Moderate Edema, Pitting Edema Neurologic Neuro Exam: Alert, Awake Psychiatric Psych Exam: Appropriate Responses Assessment/Plan Assessment Summary: NANCY/Acute Renal Failure Electrolyte Assessment: Metabolic Acidosis Problem List: (1) Hemorrhagic stroke (2) Diabetes (3) Paroxysmal a-fib (4) Anemia (5) Obesity (6) Hematemesis (7) Encephalopathy (8) NANCY (acute kidney injury) Plan She continues to have significant lower extremity swelling. Continue Bumex. She is now on Rifampin and Zosyn. Avoid nephrotoxic agents. On Bumex to TID. Follow urine out put and BMP. No new BMP today. Problem Qualifiers (1) Diabetes: (2) Hematemesis: Qualified Code: K92.0 - Hematemesis without nausea Sachin Winters MD Sep 12, 2016 11:12 Sachin Winters MD Sep 12, 2016 11:12
--- NOTE | 2016-09-12 11:46 | HHI.PR ---
Subjective Remarks Pt refusing PT, states that she didn't even do it at rehab and wants to talk to her daughter in law before doing anything. she is afraid to do anything because of her back which bothers her and states that if she does PT she will get worst. Denies any CP/SOB/N/V Objective Vitals Vital Signs Date Time Temp Pulse Resp B/P Pulse Ox O2 Delivery O2 Flow Rate FiO2 09/12/16 10:00 85 09/12/16 09:00 92 19 154/67 93 09/12/16 08:42 92 Nasal Cannula 2.00 09/12/16 08:00 97.6 85 16 140/63 94 09/12/16 08:00 85 09/12/16 07:00 89 16 148/82 96 09/12/16 06:00 93 09/12/16 06:00 82 24 145/63 92 09/12/16 05:00 90 17 146/68 95 09/12/16 04:00 95 16 147/66 94 09/12/16 04:00 95 09/12/16 04:00 98.2 95 16 147/66 94 09/12/16 02:00 101 09/12/16 00:00 98.4 101 23 170/81 90 09/12/16 00:00 101 09/11/16 22:00 103 09/11/16 20:52 92 Nasal Cannula 2.00 09/11/16 20:00 108 09/11/16 20:00 98.6 108 25 161/81 91 09/11/16 18:00 101 09/11/16 17:01 105 22 199/90 97 09/11/16 17:00 104 21 96 09/11/16 16:00 114 09/11/16 16:00 98.9 98 22 147/95 97 09/11/16 15:00 101 28 153/86 94 09/11/16 14:00 99 22 153/76 97 09/11/16 14:00 107 09/11/16 13:00 95 20 140/72 97 09/11/16 12:00 93 09/11/16 12:00 98.3 93 23 140/84 96 09/11/16 12:00 93 23 140/84 96 I/O 09/11/16 09/11/16 09/11/16 09/12/1617 6/7/17 07:00 15:00 23:00 07:00 15:00 23:00 Intake Total 1794 ml 501 ml Output Total 4775 ml 1000 ml 2350 ml Balance -2981 ml -1000 ml -1849 ml Intake Oral 300 ml 120 ml IV Total 1494 ml 381 ml Output Urine Total 4775 ml 1000 ml 2350 ml # Bowel Movements 3 1 Result Diagram: 09/12/16 0550 09/11/16 0645 Imaging Last Impressions Abdomen X-Ray 09/08/16 0000 Signed Impressions: Service Date/Time: Thursday, September 08, 2016 10:03 - CONCLUSION: Nonspecific bowel gas pattern again seen with multiple dilated air-filled loops of small bowel, now predominantly located in the left hemiabdomen. Decrease in the amount of air in the colon. Migue Lockett MD Brain MRI 09/05/16 0000 Signed Impressions: Service Date/Time: Monday, September 05, 2016 16:39 - CONCLUSION: At least three small areas of abnormal contrast enhancement as described above that would be consistent with metastatic disease. Findings are also suspicious for scattered dural enhancement that could be indicative of leptomeningeal disease. Lumbar puncture could be used to confirm. Demetrio Lowery MD FACR Thoracentesis 09/04/16 1540 Signed Impressions: Service Date/Time: Sunday, September 04, 2016 15:34 - CONCLUSION: 1. Uncomplicated right thoracentesis with removal of 600 mL of clear yellow fluid. There is only a minimal amount of right pleural fluid remaining. 2. Small left pleural effusion. There is also bilateral lower lobe atelectasis and patchy consolidation in the lungs bilaterally. Julian Lua MD Lower Extremity Ultrasound 09/04/16 0000 Signed Impressions: Service Date/Time: Sunday, September 04, 2016 09:34 - CONCLUSION: No evidence of DVT. Rohith Gibson MD Head CT 09/04/16 0000 Signed Impressions: Service Date/Time: Sunday, September 04, 2016 15:22 - CONCLUSION: 1. There appears to be an intracranial mass measuring 1.3 cm surrounded by vasogenic edema high along the right cerebral vertex. In a patient with a previous history of breast cancer, metastatic disease is the primary consideration. Recommend MRI of the brain with and without contrast further evaluation. Rohith Gibson MD Lung Scan-VQ Nuclear Medicine 09/03/16 0000 Signed Impressions: Service Date/Time: Saturday, September 03, 2016 22:02 - CONCLUSION: Low probability for pulmonary embolism. Mikel Ross MD Objective Remarks GENERAL: This is a well-nourished, well-developed patient, nad. CARDIOVASCULAR: Regular rate and rhythm without murmurs RESPIRATORY: Clear to auscultation. Breath sounds equal bilaterally but decreased at the bases. No wheezes GASTROINTESTINAL: Abdomen soft, non-tender, nondistended. No guarding. MUSCULOSKELETAL: Extremities with 1+ edema. able to move her arms and feet, motion limited on her lower extremities due to protective padded boots. NEUROLOGICAL: awake and alert but confused. 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 Status: Resolved (8) HTN (hypertension) ICD Code: I10 Status: Chronic (9) HLD (hyperlipidemia) ICD Code: E78.5 Status: Chronic (10) MSSA (methicillin susceptible Staphylococcus aureus) septicemia ICD Code: A41.01 Status: Chronic (11) NANCY (acute kidney injury) ICD Code: N17.9 Status: Acute (12) HCAP (healthcare-associated pneumonia) ICD Code: J18.9 Status: Acute (13) S/P AVR ICD Code: Z95.2 Status: Chronic (14) Anasarca ICD Code: R60.1 Status: Acute (15) Acute hypoxemic respiratory failure ICD Code: J96.01 Status: Acute (16) Lower extremity pain, bilateral ICD Code: M79.604 Status: Acute (17) Diabetes ICD Code: E11.9 Status: Acute (18) Ileus ICD Code: K56.7 Status: Acute Assessment and Plan 70-year-old female with history of stroke with hemorrhagic transformation status post coiling of mycotic aneurysm, GI bleeding, recent 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 Neurosurgeon at the [facility] reviewed the records and suggests the brain findings are more consistent with small abscesses that cannot be surgically drained at this time. The recommendation is to continue IV antibiotics and repeat MRI in 6-8 weeks. This was communicated to the family. apparently per CM notes, family requesting transfer to [facility] in [facility] but apparently pt's insurance denied transfer - ID following. Appreciate assistance. I discussed w Dr. Valadez regarding Abx recs for d/c planning. Brain lesions: Per MRI findings. See above. Toxic metabolic encephalopathy-09/05 CT showed possible mass, MRI concerning for metastatic lesions. Per Neurosurgery findings more consistent with small brain abscess. - Encephalopathy improving. Continue to monitor. Debility: pt refusing PT. I have encouraged her to work w PT and explained the importance of this. RN at bedside also encouraged her to work w PT. Pt continues to refuse and would like to speak w her daughter in law Hematemesis-CT abdomen and pelvis is suggestive of ileus, Per RN, pt having BMs. Transfuse as needed, GI following. Acute renal failure-secondary to ATN, nephrology following, s/p Bumex drip now on bumex TID, Cr 1.08, s/p bicarbonate drip. No hydronephrosis is CT scan of the abdomen. Bilateral pleural effusion-status post recent therapeutic thoracenteses.2-D echo shows mild LVH. Estimated ejection fractions in the range of 55-60%. There is no regional wall motion abnormality. Bileaflet aortic valve prosthesis present. Paroxysmal a-fib, hypertension, status post previous AVR-metoprolol on hold, anticoagulation on hold, cardiology following, aspirin once neurosurgery clears patient. Due to history of GI bleed and intracranial hemorrhage, hold anticoagulation. Per cardiology, poor prognosis, consider palliative care if no improvement. Mycotic aneurysm -S/p coiling. Acute hypoxemic respiratory failure - Likely due to HCAP.VQ scan low probability for PE. on cannula Lower extremity pain, bilateral -DVT ruled out with bilat venous doppler. Diabetes- hold metformin, sliding scale insulin with NovoLog. Ileus, constipation-GI following, diet as tolerated, GI has signed off, abdominal x-ray showed nonspecific bowel gas pattern, start lactulose, continue other laxatives. speech eval to make sure she can tolarate po then advance diet as pt has been on a liquid diet per RN GI prophylaxis - continue protonix drip dvt prophylaxis - SCD's, pharmacological prophylaxis contraindicated because of recent hemorrhage. Discharge Planning will transfer pt to regular floor continue to encourage pt to work w PT. Awaiting recs from ID CM assisting w d/c planning Problem Qualifiers (1) Hematemesis: Qualified Code: K92.0 - Hematemesis without nausea (2) HTN (hypertension): Qualified Code: I10 - Essential hypertension (3) Diabetes: Qualified Code: E11.9 - Type 2 diabetes mellitus without complication, unspecified shelter insulin use status Grisel Thurman MD Sep 12, 2016 11:46
--- NOTE | 2016-09-12 12:55 | HHI.IDPN ---
Subjective Subjective Remarks Patient is a 70-year-old female, transferred from [facility] to the [facility] after she had coffee ground emesis, and hypoxemia. Patient was initially at [facility] with an acute GI bleed back in July 2016. She had a very high pro-time, and she had been on Coumadin for her atrial fibrillation and aVR. GI workup at that time did not reveal any active source of bleeding. 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 She was started on anticoagulation, and had hemorrhagic conversion of her stroke. She underwent CTA and finding showed suggestion of mycotic aneurysm. She apparently developed sepsis at that time and required pressors for shock, she was intubated. She was subsequently transferred to the [facility] on August 12, and underwent coiling. 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 RADHA however did not show any vegetation in any of her valves. She subsequently improved and got extubated. She was transferred to [facility] for comprehensive rehabilitation on August 28, 2016. Infectious disease recommendation at that time is for her to complete Rocephin and rifampin September. While at [facility], she was doing rehabilitation. She's had some problem with lethargy. On the day of admission she apparently had nausea and vomiting and had some abdominal pain and some chest pain. She had coffee ground emesis. Her O2 saturation at that time was in the 70s, and she appeared dyspneic. She was therefore admitted to the [facility] for closer monitoring and further evaluation and treatment. While at [facility] she had 2 units of packed RBC that was transfused. Her hemoglobin was staying around 10, and on the day of admission it was down to 8. She's had some low-grade temps. According to the nurse she's been very lethargic this morning. Patient just came back from the radiology department for she had thoracenteses as well as CT of the head. Patient currently is on nasal O2. She is not on any pressors. Monitor shows atrial fibrillation. CT of the abdomen and pelvis showed possible ileus, and she had evidence of bilateral pleural effusion and consolidation. She also had a urinalysis which showed some pyuria. Patient's urine output has been low, and her creatinine had gone up to 1.44. It was 0.8 previously. Infectious disease consultation has been requested to evaluate patient with multiple problems including sepsis, UTI, possible pneumonia. RECORDS reviewed from [facility] Patient was initially at [facility] for GIB admitted 07/28 Developed ischemic CVA R frontal, hemorrhagic transformation on anticoagulation She was transferred to [facility] and had CTA which showed an aneurysm, possible mycotic. She had sepsis around that time, and she was transferred to [facility] 08/12 for intervention of her aneurysm Patient had MSSA bacteremia source not clear - RADHA negative (patient had prior AVR), ?PNA She had coiling MCA aneurysm 08/12, ?mycotic aneursym Last (+) BC at [facility] was 08/14 according to the notes Patient was initially on IV vanco and switched to Rocephin 08/17; had been on Rifampin since 08/13 Last ID note recommended Abx Rx until September 29 for presumed MSSA AVR Notes reviewed D/W RN Temps ok She is awake and alert; some occ confused Per RN, [facility] did not think transfer needed Brain MRI with 3 enhancing lesions, ?abscess, ? mets Could not find any imaging studies from [facility], but 3 lesions prob new Not SOB UO good Creatinine improving All BC negative Pleural fluid C/S negative Antibiotics Vanco Rocephin Rifampin Lines LUE PICC - no evidence of infection Past Medical History Reviewed Allergies: Coded Allergies: Codeine (Verified Allergy, Unknown, 08/27/16) Haldol (Verified Allergy, Unknown, 08/27/16) Objective . Vital Signs Date Time Temp Pulse Resp B/P Pulse Ox O2 Delivery O2 Flow Rate FiO2 09/12/16 12:00 79 09/12/16 12:00 98.0 79 17 159/68 93 09/12/16 11:00 93 21 171/69 93 09/12/16 10:00 85 09/12/16 10:00 94 18 156/67 93 09/12/16 09:00 92 19 154/67 93 09/12/16 09:00 92 19 154/67 93 09/12/16 08:42 92 Nasal Cannula 2.00 09/12/16 08:00 97.6 85 16 140/63 94 09/12/16 08:00 85 09/12/16 07:00 89 16 148/82 96 09/12/16 06:00 93 09/12/16 06:00 82 24 145/63 92 09/12/16 05:00 90 17 146/68 95 09/12/16 04:00 95 16 147/66 94 09/12/16 04:00 95 09/12/16 04:00 98.2 95 16 147/66 94 09/12/16 02:00 101 09/12/16 00:00 98.4 101 23 170/81 90 09/12/16 00:00 101 09/11/16 22:00 103 09/11/16 20:52 92 Nasal Cannula 2.00 09/11/16 20:00 108 09/11/16 20:00 98.6 108 25 161/81 91 09/11/16 18:00 101 09/11/16 17:01 105 22 199/90 97 09/11/16 17:00 104 21 96 09/11/16 16:00 114 09/11/16 16:00 98.9 98 22 147/95 97 09/11/16 15:00 101 28 153/86 94 09/11/16 14:00 99 22 153/76 97 09/11/16 14:00 107 09/11/16 13:00 95 20 140/72 97 09/11/16 09/11/16 09/12/16 15:00 23:00 07:00 Intake Total 1794 ml 501 ml Output Total 4775 ml 1000 ml 2350 ml Balance -2981 ml -1000 ml -1849 ml Intake Oral 300 ml 120 ml IV Total 1494 ml 381 ml Output Urine Total 4775 ml 1000 ml 2350 ml # Bowel Movements 3 1 . Laboratory Tests Test 09/11/16 09/12/16 06:45 05:50 White Blood Count 5.3 TH/MM3 Red Blood Count 3.39 MIL/MM3 Hemoglobin 9.8 GM/DL 9.2 GM/DL Hematocrit 30.8 % 27.7 % Mean Corpuscular Volume 91.0 FL Mean Corpuscular Hemoglobin 28.9 PG Mean Corpuscular Hemoglobin 31.8 % Concent Red Cell Distribution Width 21.3 % Platelet Count 168 TH/MM3 Mean Platelet Volume 8.1 FL Laboratory Tests Test 09/10/16 09/11/16 13:30 06:45 Sodium Level 136 MEQ/L 140 MEQ/L Potassium Level 3.5 MEQ/L 3.1 MEQ/L Chloride Level 99 MEQ/L 101 MEQ/L Carbon Dioxide Level 27.8 MEQ/L 28.8 MEQ/L Anion Gap 9 MEQ/L 10 MEQ/L Blood Urea Nitrogen 33 MG/DL 31 MG/DL Creatinine 1.37 MG/DL 1.08 MG/DL Estimat Glomerular Filtration 38 ML/MIN 50 ML/MIN Rate Random Glucose 250 MG/DL 159 MG/DL Calcium Level 7.4 MG/DL 7.6 MG/DL Protein Corrected Calcium 8.1 MG/DL Total Protein 5.8 GM/DL 5.5 GM/DL Total Bilirubin 1.0 MG/DL Direct Bilirubin 0.7 MG/DL Indirect Bilirubin 0.3 MG/DL Aspartate Amino Transf 14 U/L (AST/SGOT) Alanine Aminotransferase 11 U/L (ALT/SGPT) Alkaline Phosphatase 148 U/L Albumin 2.0 GM/DL Imaging Abdomen X-Ray 09/08/16 0000 Signed Impressions: Service Date/Time: Thursday, September 08, 2016 10:03 - CONCLUSION: Nonspecific bowel gas pattern again seen with multiple dilated air-filled loops of small bowel, now predominantly located in the left hemiabdomen. Decrease in the amount of air in the colon. Migue Lockett MD Last Impressions Thoracentesis 09/04/16 1540 Signed Impressions: Service Date/Time: Sunday, September 04, 2016 15:34 - CONCLUSION: 1. Uncomplicated right thoracentesis with removal of 600 mL of clear yellow fluid. There is only a minimal amount of right pleural fluid remaining. 2. Small left pleural effusion. There is also bilateral lower lobe atelectasis and patchy consolidation in the lungs bilaterally. Julian Lua MD Lower Extremity Ultrasound 09/04/16 0000 Signed Impressions: Service Date/Time: Sunday, September 04, 2016 09:34 - CONCLUSION: No evidence of DVT. Rohith Gibson MD Head CT 09/04/16 0000 Signed Impressions: Service Date/Time: Sunday, September 04, 2016 15:22 - CONCLUSION: 1. There appears to be an intracranial mass measuring 1.3 cm surrounded by vasogenic edema high along the right cerebral vertex. In a patient with a previous history of breast cancer, metastatic disease is the primary consideration. Recommend MRI of the brain with and without contrast further evaluation. Rohith Gibson MD Lung Scan- Nuclear Medicine 09/03/16 0000 Signed Impressions: Service Date/Time: Saturday, September 03, 2016 22:02 - CONCLUSION: Low probability for pulmonary embolism. Mikel Ross MD Physical Exam GENERAL: awake and alert, not in respiratory distress. SKIN: Warm and dry. No generalized rash, no evidence of embolic lesions. HEENT: [place] conjunctiva. R scleral hemorrhage almost gone. Pupils equal, round and reactive to light. Full EOM. Moist oral mucosa EARS, NOSE AND THROAT: Nose without bleeding or purulent nasal discharge. Moist oral mucosa. NECK: Trachea midline. Supple and not tender, no meningeal signs CARDIOVASCULAR: Irregular rate and rhythm. Has harsh systolic murmur at base of the heart. RESPIRATORY: Coarse breath sounds bilaterally. No rales, wheezing or rhonchi. Decreased at bases ABDOMEN: Globular and distended, has a large incisional/ventral hernia, has diffuse mild tenderness, no guarding or rebound, bowel sounds present and hypoactive. EXTREMITIES: No clubbing, cyanosis. Both feet cool to touch, no mottling. Skin tight both LE. No calf tenderness. NEUROLOGICAL: No facial asymmetry, full EOM, tongue midline. Equal motor strength PSYCHIATRIC: Calm and cooperative LINE: No evidence of infection : Ruiz in place, clear yellow urine Assessment & Plan Remarks IMPRESSION Sepsis, source? - has UTI - ?new PNA, ?aspiration - on Rx for MSSA sepsis, and presumed PVE, AVR, RADHA negative - has ileus 3 enhancing lesions in brain, ?abscess, if not present then very worrisome - has been on Rocephin and Rifampin the whple time - BC here are negative so far - ?failed Rx Recurrent GIB, H/H stable CVA, S/P coiling of aneurysm Chronic atrial fib S/P AVR 2006 Renal insufficiency, ?due to sepsis - improving Candiduria - repeat UA better RECOMMENDATION Will not give any further Vanco Continue Rifampin for synergy against MSSA and presumed PVE, ?brain absesses Change to Oxacillin, for MSSA, ?failed Rocephin Will get imaging studies from [facility] and [facility] Monitor progress Duration of Rx will be longer than September 29 as originally planned due to development of multiple enhancing lesions in brain, and ?abscesses Follow new C/S I put in a call to BAILEE BARRETT at [facility] Dr Naun Garcia [phone] to discuss case and patient's course while at [facility]; awaiting his call back D/W RN ADDENDUM: 1:10 PM D/W Dr Cj Lowery, radiology and reviewed Brain MRI She has multiple small ring enhancing lesions in both sides of the brain Not a lot of edema surroinduing the lesions: DDx mets, septic emboli Abscess usually with more surround vasogenic edema I will try to obtain copies of her radiology studies from [facility], [facility] and [facility] ADDENDUM: 1:[address] Jose MOROCHO MD at [facility] Patient was being treated for high grade MSSA bacteremia, no clear source, but being treated for presumed AVR IE RADHA did not show any vegetations in PV or in any of valves Patient was on high dose Rocephin (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 Total time spent with care of this patient - includes reviewing images, review of records, discussion (multiple phone calls) with several MD (radiologist and BAILEE MD at [facility]) and critical thinking for management of this patient is about 1 hour. Mary Valadez MD Sep 12, 2016 12:55
[2016-09-12] MEDS: OXACILLIN INJ 2 GM in SODIUM CHLORIDE 0.9% INJ 100 ML IV SCH ×3 (13:36→22:13)
--- NOTE | 2016-09-12 17:31 | PD.CARD.PN ---
Subjective Subjective Remarks No chest pain, no shortness of breath Asked to see the patient for consideration of RADHA Objective Medications Current Medications Medications (Trade) Dose Ordered Sig/Randy Route Start Time Stop Time Status Last Admin (Rifampin Inj/NS Inj) 100 ml @ 100 mls/hr Q12H IV 09/03/16 18:00 09/12/16 05:51 (Pill Splitter) 1 ea UNSCH PRN OTHER 09/03/16 19:00 (D50w (Vial) Inj) 50 ml UNSCH PRN IV 09/03/16 19:30 (Glucagon Inj) 1 mg UNSCH PRN OTHER 09/03/16 19:30 (Decadron Inj) 4 mg Q6HR IV PUSH 09/04/16 18:00 09/12/16 12:57 (Protonix Inj) 40 mg Q12HR IV PUSH 09/06/16 11:15 09/12/16 08:33 (Milk Of Magnesia Liq) 30 ml DAILY PRN PO 09/07/16 17:45 09/07/16 18:28 (Janette-Colace) 1 tab BID PRN PO 09/07/16 17:45 (Fleet Mineral Oil Enema) 59 ml DAILY PRN RECTAL 09/09/16 08:45 09/09/16 17:13 (Lactulose Liq) 30 ml DAILY PRN PO 09/11/16 09:15 (Miralax) 17 gm DAILY PRN PO 09/11/16 09:15 (Bumex Inj) 1 mg TID IV PUSH 09/11/16 18:00 09/12/16 12:57 (Apresoline Inj) 10 mg Q30M PRN IV PUSH 09/11/16 18:30 09/11/16 19:12 (Catapres) 0.1 mg Q6H PRN PO 09/11/16 18:30 ([place]) 1 lozenge UNSCH PRN BUCCAL 09/12/16 02:45 Acetaminophen 500 mg 500 mg Q6H PRN PO 09/12/16 02:45 09/12/16 02:48 (Prostaphlin Inj/ NS Inj) 100 ml @ 200 mls/hr Q4H IV 09/12/16 14:00 09/12/16 13:36 Vital Signs / I&O Vital Signs Date Time Temp Pulse Resp B/P Pulse Ox O2 Delivery O2 Flow Rate FiO2 09/12/16 12:00 79 09/12/16 12:00 98.0 79 17 159/68 93 09/12/16 11:00 93 21 171/69 93 09/12/16 10:00 85 09/12/16 10:00 94 18 156/67 93 09/12/16 09:00 92 19 154/67 93 09/12/16 09:00 92 19 154/67 93 09/12/16 08:42 92 Nasal Cannula 2.00 09/12/16 08:00 97.6 85 16 140/63 94 09/12/16 08:00 85 09/12/16 07:00 89 16 148/82 96 09/12/16 06:00 93 09/12/16 06:00 82 24 145/63 92 09/12/16 05:00 90 17 146/68 95 09/12/16 04:00 95 16 147/66 94 09/12/16 04:00 95 09/12/16 04:00 98.2 95 16 147/66 94 09/12/16 02:00 101 09/12/16 00:00 98.4 101 23 170/81 90 09/12/16 00:00 101 09/11/16 22:00 103 09/11/16 20:52 92 Nasal Cannula 2.00 09/11/16 20:00 108 09/11/16 20:00 98.6 108 25 161/81 91 09/11/16 18:00 101 I/O 09/11/16 09/11/16 09/11/16 09/12/16 09/12/16 09/12/16 07:00 15:00 23:00 07:00 15:00 23:00 Intake Total 1794 ml 501 ml 461 ml Output Total 4775 ml 1000 ml 2350 ml 1100 ml Balance -2981 ml -1000 ml -1849 ml -639 ml Intake Oral 300 ml 120 ml 200 ml IV Total 1494 ml 381 ml 261 ml Output Urine Total 4775 ml 1000 ml 2350 ml 1100 ml # Bowel Movements 3 1 Physical Exam GENERAL: NAD, awake and alert SKIN: Warm and dry. HEAD: Atraumatic. Normocephalic. EYES: Pupils equal and round. No scleral icterus. No injection or drainage. ENT: No nasal bleeding or discharge. Mucous membranes pink and moist. NECK: Trachea midline. No JVD. CARDIOVASCULAR: Irregularly irregular RESPIRATORY: No accessory muscle use. Decreased breath sounds bilaterally GASTROINTESTINAL: Abdomen soft, non-tender, nondistended. Hepatic and splenic margins not palpable. MUSCULOSKELETAL: Extremities without clubbing, cyanosis, or edema. No obvious deformities. NEUROLOGICAL: Awake and alert, confused. Appears to move extremities Laboratory Laboratory Tests Test 09/12/16 05:50 Hemoglobin 9.2 GM/DL Hematocrit 27.7 % Assessment and Plan Problem List: (1) Sepsis (2) Encephalopathy (3) Metabolic acidosis (4) Mycotic aneurysm (5) Hemorrhagic cerebrovascular accident (CVA) (6) Ischemic stroke of frontal lobe (7) S/P AVR (8) Diabetes (9) Acute hypoxemic respiratory failure (10) HCAP (healthcare-associated pneumonia) (11) Paroxysmal a-fib (12) NANCY (acute kidney injury) (13) Bilateral pleural effusion (14) MSSA (methicillin susceptible Staphylococcus aureus) septicemia (15) HLD (hyperlipidemia) (16) HTN (hypertension) (17) Anasarca (18) Hematemesis Assessment and Plan 1) History of mechanical aortic valve replacement, previously on Coumadin Had GI bleed with INR 5.8 CVA off Coumadin with hemorrhagic conversion once placed on heparin Hematemesis off anticoagulation with drop in Hgb of 3g Not an anticoagulation candidate, would consider ASA 81mg once ok with neurosurgery/GI 2) CHF s/p right sided thoracentesis 3) Not a cardiac catheterization candidate, so would not plan on ischemic evaluation 4) Questionable septic emboli noted on MRI, concern for possible endocarditis especially with mechanical aortic valve Will plan on RADHA, discussed with patient and her [id number] who are in agreement about the procedure Problem Qualifiers (1) Diabetes: Qualified Code: E11.9 - Type 2 diabetes mellitus without complication, unspecified mcc insulin use status (2) HTN (hypertension): Qualified Code: I10 - Essential hypertension (3) Hematemesis: Qualified Code: K92.0 - Hematemesis without nausea Jacky Reyes DO Sep 12, 2016 17:31
--- NOTE | 2016-09-12 18:10 | ECHRPT ---
Indication: septic emboli Indication: septic emboli CONCLUSIONS The left ventricular systolic function is low normal with an estimated ejection fraction in the rang e of 50- 55%. There is a mobile echodensity that is located on the posterior mitral valve leaflet, most likely veg etation vs. possible ruptured chord. There is mild to moderate tricuspid valve regurgitation. Believed to be a [employer] Standard bileaflet mechanical valve in the aortic position. BP: 170 / 77 HR: 95 Rhythm: Atrial fibrillation MEASUREMENTS (Male / Female) Normal Values Technical Quality:Good DOPPLER AV Peak Velocity 231.0 cm/s AV Peak Gradient 21.3 mmHg Medications Complications There were no complications prior to, during or in recovery from the transesophag eal echocardiogram.. Proc. Components The patient was in a fasting state after obtaining an informed consent. The kan ent was premedicated with IV Versed and IV Fentanyl. The posterior pharynx was sprayed with Cetacaine spray and the patient was administered viscous Xylocaine 2%. The RADHA probe was passed into the posterior p harynx , mid- esophagus, distal esophagus, and gastric fundus. RADHA was performed at multiple le vels. The patient tolerated the procedure well and there were no complications. The patient was tra nsferred to the floor in satisfactory condition.. The RADHA probe was passed into the posterior pharynx , mi d-esophagus, distal esophagus, and gastric fundus.. The patient tolerated the procedure well and ther e were no complications.. FINDINGS Left Ventricle Normal left ventricular size. Wall thickness is normal. The left ventricular systolic function is lo w normal with an estimated ejection fraction in the range of 50-55%. There was limited left ventricular wall motion assessment due to poor endocardial visualization. This study was not technically sufficient to allow for evaluation of left ventricular diastolic function. Right Ventricle Normal right ventricular size and systolic function. Left Atrium The left atrial size is normal. Right Atrium The right atrium is not well visualized. Atrial Appendages Normal left atrial appendage size with no evidence of thrombus formation. There is no spontaneous ec ho contrast seen in the left atrial appendage. The velocities in the left atrial appendage are reduced. Atrial Septum Normal atrial septal thickness. No atrial level shunt is demonstrated by color flow Doppler or agita brandi saline imaging. Aorta The aortic root and proximal ascending aorta are normal in size on limited imaging. Mitral Valve Mild thickening of the mitral valve leaflets. Mild mitral valve regurgitation. No mitral valve steno sis. There is a mobile echodensity is located on the posterior mitral valve leaflet, most likely vegetation vs. ruptured chord. Aortic Valve The aortic prosthesis is not well visualized. Believed to be a [employer] bileaflet me chanical. There is mild stenosis of the aortic valve prosthesis, mean gradient 7.6. There is physiologic regu rgitation of the prosthetic aortic valve. Tricuspid Valve Structurally normal tricuspid valve. There is mild to moderate tricuspid valve regurgitation. Pericardium No pulmonary valve regurgitation or stenosis. No pericardial effusion. Pulmonary Valve Jacky Reyes DO (Electronically Signed) Final Date:12 September 2016 18:10
[2016-09-13] VITALS: BP 128/62; PULSE 94; RESP 18; TEMP 97.6; O2SAT 96
[2016-09-13] MEDS: OXACILLIN INJ 2 GM in SODIUM CHLORIDE 0.9% INJ 100 ML IV SCH ×4 (01:11→15:11)
[2016-09-13 04:00] VITALS: BP 160/81; PULSE 99; RESP 20; TEMP 97.2; O2SAT 94
[2016-09-13] MEDS: RIFAMPIN INJ 300 MG in SODIUM CHLORIDE 0.9% INJ 100 ML IV SCH (05:33)
[2016-09-13] MEDS: DEXAMETHASONE SOD PHOS 4 MG/ML VIAL IV PUSH SCH ×2 (05:34→12:32)
[2016-09-13] MEDS: INSULIN ASPART SUPPLEMENTAL SCALE SQ SCH ×2 (06:46→12:38)
[2016-09-13 08:00] VITALS: BP 180/66; PULSE 103; RESP 22; TEMP 97; O2SAT 94
--- NOTE | 2016-09-13 08:37 | HHI.PR ---
Subjective Remarks Pt is frustrated and states that no one comes and helps her get up and out of bed. she wants to sit up to eat her breakfast when it arrives. denies any chest pain, SOB, nausea or vomiting Objective Vitals Vital Signs Date Time Temp Pulse Resp B/P Pulse Ox O2 Delivery O2 Flow Rate FiO2 09/13/16 04:00 97.2 99 20 160/81 94 09/13/16 00:00 97.6 94 18 128/62 96 09/12/16 18:59 96.2 98 20 132/71 93 09/12/16 17:08 102 28 153/68 99 09/12/16 17:06 108 27 147/68 97 09/12/16 17:04 102 23 138/66 93 09/12/16 17:02 104 24 171/81 99 09/12/16 17:00 102 32 189/79 99 09/12/16 16:58 108 31 182/84 96 09/12/16 16:56 107 26 172/78 98 09/12/16 16:54 104 24 178/77 98 09/12/16 16:52 109 24 173/81 97 09/12/16 16:50 98 23 181/77 98 09/12/16 16:48 101 23 181/79 100 09/12/16 16:46 98.4 103 23 189/81 99 09/12/16 16:44 104 24 169/74 99 09/12/16 16:42 101 24 98/70 93 09/12/16 16:00 102 25 168/72 91 09/12/16 16:00 95 09/12/16 15:00 100 19 94 09/12/16 14:01 92 19 171/74 91 09/12/16 14:00 92 19 91 09/12/16 13:00 93 20 157/76 93 09/12/16 12:00 79 09/12/16 12:00 98.0 79 17 159/68 93 09/12/16 12:00 79 17 159/68 93 09/12/16 11:00 93 21 171/69 93 09/12/16 10:00 85 09/12/16 10:00 94 18 156/67 93 09/12/16 09:00 92 19 154/67 93 09/12/16 09:00 92 19 154/67 93 09/12/16 08:42 92 Nasal Cannula 2.00 I/O 09/12/16 09/12/16 09/12/16 09/13/16 09/13/16 09/13/16 07:00 15:00 23:00 07:00 15:00 23:00 Intake Total 501 ml 461 ml Output Total 2350 ml 1100 ml 1730 ml 850 ml Balance -1849 ml -639 ml -1730 ml -850 ml Intake Oral 120 ml 200 ml IV Total 381 ml 261 ml Output Urine Total 2350 ml 1100 ml 1730 ml 850 ml # Bowel Movements 1 1 2 Result Diagram: 09/12/16 0550 09/11/16 0645 Imaging Last Impressions Abdomen X-Ray 09/08/16 0000 Signed Impressions: Service Date/Time: Thursday, September 08, 2016 10:03 - CONCLUSION: Nonspecific bowel gas pattern again seen with multiple dilated air-filled loops of small bowel, now predominantly located in the left hemiabdomen. Decrease in the amount of air in the colon. Migue Lockett MD Brain MRI 09/05/16 0000 Signed Impressions: Service Date/Time: Monday, September 05, 2016 16:39 - CONCLUSION: At least three small areas of abnormal contrast enhancement as described above that would be consistent with metastatic disease. Findings are also suspicious for scattered dural enhancement that could be indicative of leptomeningeal disease. Lumbar puncture could be used to confirm. Demetrio Lowery MD FACR Thoracentesis 09/04/16 1540 Signed Impressions: Service Date/Time: Sunday, September 04, 2016 15:34 - CONCLUSION: 1. Uncomplicated right thoracentesis with removal of 600 mL of clear yellow fluid. There is only a minimal amount of right pleural fluid remaining. 2. Small left pleural effusion. There is also bilateral lower lobe atelectasis and patchy consolidation in the lungs bilaterally. Julian Lua MD Lower Extremity Ultrasound 09/04/16 0000 Signed Impressions: Service Date/Time: Sunday, September 04, 2016 09:34 - CONCLUSION: No evidence of DVT. Rohith Gibson MD Head CT 09/04/16 0000 Signed Impressions: Service Date/Time: Sunday, September 04, 2016 15:22 - CONCLUSION: 1. There appears to be an intracranial mass measuring 1.3 cm surrounded by vasogenic edema high along the right cerebral vertex. In a patient with a previous history of breast cancer, metastatic disease is the primary consideration. Recommend MRI of the brain with and without contrast further evaluation. Rohith Gibson MD Lung Scan-VQ Nuclear Medicine 09/03/16 0000 Signed Impressions: Service Date/Time: Saturday, September 03, 2016 22:02 - CONCLUSION: Low probability for pulmonary embolism. Mikel Ross MD Objective Remarks GENERAL: This is a well-nourished, well-developed patient, nad. CARDIOVASCULAR: Regular rate and rhythm without murmurs RESPIRATORY: Clear to auscultation. Breath sounds equal bilaterally but decreased at the bases. No wheezes GASTROINTESTINAL: Abdomen soft, some discomfort w deep palpation throughout but no guarding or rebound. MUSCULOSKELETAL: Extremities with 1+ edema. able to move her arms and feet NEUROLOGICAL: awake and alert but confused. 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 Status: Resolved (8) HTN (hypertension) ICD Code: I10 Status: Chronic (9) HLD (hyperlipidemia) ICD Code: E78.5 Status: Chronic (10) MSSA (methicillin susceptible Staphylococcus aureus) septicemia ICD Code: A41.01 Status: Chronic (11) NANCY (acute kidney injury) ICD Code: N17.9 Status: Acute (12) HCAP (healthcare-associated pneumonia) ICD Code: J18.9 Status: Acute (13) S/P AVR ICD Code: Z95.2 Status: Chronic (14) Anasarca ICD Code: R60.1 Status: Acute (15) Acute hypoxemic respiratory failure ICD Code: J96.01 Status: Acute (16) Lower extremity pain, bilateral ICD Code: M79.604 Status: Acute (17) Diabetes ICD Code: E11.9 Status: Acute (18) Ileus ICD Code: K56.7 Status: Acute Assessment and Plan 70-year-old female with history of stroke with hemorrhagic transformation status post coiling of mycotic aneurysm, GI bleeding, 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 Neurosurgeon at the [facility] reviewed the records and suggests the brain findings are more consistent with small abscesses that cannot be surgically drained at this time. The recommendation is to continue IV antibiotics and repeat MRI in 6-8 weeks. This was communicated to the family. apparently per notes, family requesting transfer to [facility] in [facility] but apparently pt's insurance denied transfer. - ID following. Appreciate assistance. I discussed w Dr. Valadez regarding Abx recs for d/c planning. Cards reconsulted for RADHA. If with new vegetation in PV, pt will need likely chronic suppression. Brain lesions: Per MRI findings. See above. Toxic metabolic encephalopathy-09/05 CT showed possible mass, MRI concerning for metastatic lesions. Per Neurosurgery findings more consistent with small brain abscess. - Encephalopathy improving. Continue to monitor. Debility: pt refusing PT yesterday, today she is asking to get out of bed. I have encouraged her to work w PT and explained the importance of this. Hematemesis-CT abdomen and pelvis is suggestive of ileus, Per RN, pt having BMs. Transfuse as needed, GI following. Acute renal failure-secondary to ATN, nephrology following, s/p Bumex drip now on bumex TID, Cr 1.08, s/p bicarbonate drip. No hydronephrosis is CT scan of the abdomen. Bilateral pleural effusion-status post recent therapeutic thoracenteses.2-D echo shows mild LVH. Estimated ejection fractions in the range of 55-60%. There is no regional wall motion abnormality. Bileaflet aortic valve prosthesis present. Paroxysmal a-fib, hypertension, status post previous AVR-metoprolol on hold, anticoagulation on hold, cardiology following, aspirin once neurosurgery clears patient. Due to history of GI bleed and intracranial hemorrhage, hold anticoagulation. Per cardiology, poor prognosis, consider palliative care if no improvement. Mycotic aneurysm -S/p coiling. Acute hypoxemic respiratory failure - Likely due to HCAP.VQ scan low probability for PE. on cannula Lower extremity pain, bilateral -DVT ruled out with bilat venous doppler. Diabetes- hold metformin, sliding scale insulin with NovoLog. Ileus, constipation-GI following, diet as tolerated, GI has signed off, abdominal x-ray showed nonspecific bowel gas pattern, start lactulose, continue other laxatives. pt on mechanical soft diet, ADA GI prophylaxis - continue protonix dvt prophylaxis - SCD's, pharmacological prophylaxis contraindicated because of recent hemorrhage. Discharge Planning continue to encourage pt to work w PT. awaiting RADHA results Problem Qualifiers (1) Hematemesis: Qualified Code: K92.0 - Hematemesis without nausea (2) HTN (hypertension): Qualified Code: I10 - Essential hypertension (3) Diabetes: Qualified Code: E11.9 - Type 2 diabetes mellitus without complication, unspecified care home insulin use status Grisel Thurman MD Sep 13, 2016 08:36
[2016-09-13] MEDS: PANTOPRAZOLE SODIUM 40 MG VIAL IV PUSH SCH (09:07)
[2016-09-13] MEDS: BUMETANIDE INJ 1 MG/4 ML VIAL IV PUSH SCH ×2 (09:07→15:12)
--- NOTE | 2016-09-13 10:47 | HHI.NPPN ---
Subjective History of Present Illness 70-year-old female with a past medical history of atrial fibrillation, history of GI bleeding, hypertension, ischemic heart disease, congestive heart failure, history of breast cancer with post mastectomy, colon cancer, was transferred here from [facility]. I was called for elevated BUN/Creatinine and decrease urine out put. Additional Remarks Patient is alert, not fully oriented, oriented times 2, not in distress. Objective Data Data 09/12/16 09/13/16 19:00 07:00 Intake Total 461 ml Output Total 1100 ml 2580 ml Balance -639 ml -2580 ml Intake Oral 200 ml IV Total 261 ml Output Urine Total 1100 ml 2580 ml # Bowel Movements 3 Vital Signs Date Time Temp Pulse Resp B/P Pulse Ox O2 Delivery O2 Flow Rate FiO2 09/13/16 08:00 97.0 103 22 180/66 94 09/13/16 04:00 97.2 99 20 160/81 94 09/13/16 00:00 97.6 94 18 128/62 96 09/12/16 18:59 96.2 98 20 132/71 93 09/12/16 17:08 102 28 153/68 99 09/12/16 17:06 108 27 147/68 97 09/12/16 17:04 102 23 138/66 93 09/12/16 17:02 104 24 171/81 99 09/12/16 17:00 102 32 189/79 99 09/12/16 16:58 108 31 182/84 96 09/12/16 16:56 107 26 172/78 98 09/12/16 16:54 104 24 178/77 98 09/12/16 16:52 109 24 173/81 97 09/12/16 16:50 98 23 181/77 98 09/12/16 16:48 101 23 181/79 100 09/12/16 16:46 98.4 103 23 189/81 99 09/12/16 16:44 104 24 169/74 99 09/12/16 16:42 101 24 98/70 93 09/12/16 16:00 102 25 168/72 91 09/12/16 16:00 95 09/12/16 15:00 100 19 94 09/12/16 14:01 92 19 171/74 91 09/12/16 14:00 92 19 91 09/12/16 13:00 93 20 157/76 93 09/12/16 12:00 79 09/12/16 12:00 98.0 79 17 159/68 93 09/12/16 12:00 79 17 159/68 93 09/12/16 11:00 93 21 171/69 93 -: 09/12/16 0550 09/11/16 0645 Microbiology 09/12/16 Aerobic Blood Culture, Received Pending 09/12/16 Anaerobic Blood Culture, Received Pending 09/12/16 Aerobic Blood Culture, Received Pending 09/12/16 Anaerobic Blood Culture, Received Pending Physical Exam General Appearance: No Acute Distress, Comfortable Eyes Eye Exam: Pupils Equal Throat Throat Exam: Oral Mucosa Ismay & Moist Neck Neck Exam: Neck Supple Pulmonary Resp Exam: No Distress, Rhonchi, Decreased Bases, Diminished Breath Sounds Cardiology CV Exam: Regular, Normal Sinus Rhythm Gastrointestinal/Abdomen GI Exam: Soft, Non-Tender, Distended Extremeties Extremities Exam: Moderate Edema, Pitting Edema Neurologic Neuro Exam: Alert, Awake Psychiatric Psych Exam: Appropriate Responses Assessment/Plan Assessment Summary: NANCY/Acute Renal Failure Electrolyte Assessment: Metabolic Acidosis Problem List: (1) Hemorrhagic stroke (2) Diabetes (3) Paroxysmal a-fib (4) Anemia (5) Obesity (6) Hematemesis (7) Encephalopathy (8) NANCY (acute kidney injury) Plan She continues to have significant lower extremity swelling. Continue Bumex. She is now on Oxacillin. Avoid nephrotoxic agents. On Bumex to TID. Follow urine out put and BMP. Urine out put is good. Edema improving, check BMP in AM. Problem Qualifiers (1) Diabetes: (2) Hematemesis: Qualified Code: K92.0 - Hematemesis without nausea Sachin Winters MD Sep 13, 2016 10:47
[2016-09-13 12:00] VITALS: BP 169/90; PULSE 98; RESP 26; TEMP 97.8; O2SAT 94
--- NOTE | 2016-09-13 12:17 | PD.CARD.PN ---
Subjective Subjective Remarks No chest pain Doing well post-RADHA Objective Medications Current Medications Medications (Trade) Dose Ordered Sig/Randy Route Start Time Stop Time Status Last Admin (Rifampin Inj/NS Inj) 100 ml @ 100 mls/hr Q12H IV 09/03/16 18:00 09/13/16 05:33 (Pill Splitter) 1 ea UNSCH PRN OTHER 09/03/16 19:00 (D50w (Vial) Inj) 50 ml UNSCH PRN IV 09/03/16 19:30 (Glucagon Inj) 1 mg UNSCH PRN OTHER 09/03/16 19:30 (Decadron Inj) 4 mg Q6HR IV PUSH 09/04/16 18:00 09/13/16 05:34 (Protonix Inj) 40 mg Q12HR IV PUSH 09/06/16 11:15 09/13/16 09:07 (Milk Of Magnesia Liq) 30 ml DAILY PRN PO 09/07/16 17:45 09/07/16 18:28 (Janette-Colace) 1 tab BID PRN PO 09/07/16 17:45 (Fleet Mineral Oil Enema) 59 ml DAILY PRN RECTAL 09/09/16 08:45 09/09/16 17:13 (Lactulose Liq) 30 ml DAILY PRN PO 09/11/16 09:15 (Miralax) 17 gm DAILY PRN PO 09/11/16 09:15 (Bumex Inj) 1 mg TID IV PUSH 09/11/16 18:00 09/13/16 09:07 (Apresoline Inj) 10 mg Q30M PRN IV PUSH 09/11/16 18:30 09/11/16 19:12 (Catapres) 0.1 mg Q6H PRN PO 09/11/16 18:30 ([place]) 1 lozenge UNSCH PRN BUCCAL 09/12/16 02:45 Acetaminophen 500 mg 500 mg Q6H PRN PO 09/12/16 02:45 09/12/16 02:48 (Prostaphlin Inj/ NS Inj) 100 ml @ 200 mls/hr Q4H IV 09/12/16 14:00 09/13/16 09:08 Vital Signs / I&O Vital Signs Date Time Temp Pulse Resp B/P Pulse Ox O2 Delivery O2 Flow Rate FiO2 09/13/16 04:00 97.2 99 20 160/81 94 09/13/16 00:00 97.6 94 18 128/62 96 09/12/16 18:59 96.2 98 20 132/71 93 09/12/16 17:08 102 28 153/68 99 09/12/16 17:06 108 27 147/68 97 09/12/16 17:04 102 23 138/66 93 09/12/16 17:02 104 24 171/81 99 09/12/16 17:00 102 32 189/79 99 09/12/16 16:58 108 31 182/84 96 09/12/16 16:56 107 26 172/78 98 09/12/16 16:54 104 24 178/77 98 09/12/16 16:52 109 24 173/81 97 09/12/16 16:50 98 23 181/77 98 09/12/16 16:48 101 23 181/79 100 09/12/16 16:46 98.4 103 23 189/81 99 09/12/16 16:44 104 24 169/74 99 09/12/16 16:42 101 24 98/70 93 09/12/16 16:00 102 25 168/72 91 09/12/16 16:00 95 09/12/16 15:00 100 19 94 09/12/16 14:01 92 19 171/74 91 09/12/16 14:00 92 19 91 09/12/16 13:00 93 20 157/76 93 I/O 09/12/16 09/12/16 09/12/16 09/13/16 09/13/16 09/13/16 07:00 15:00 23:00 07:00 15:00 23:00 Intake Total 501 ml 461 ml Output Total 2350 ml 1100 ml 1730 ml 850 ml 450 ml Balance -1849 ml -639 ml -1730 ml -850 ml -450 ml Intake Oral 120 ml 200 ml IV Total 381 ml 261 ml Output Urine Total 2350 ml 1100 ml 1730 ml 850 ml 450 ml # Bowel Movements 1 1 2 1 Physical Exam GENERAL: NAD, awake and alert SKIN: Warm and dry. HEAD: Atraumatic. Normocephalic. EYES: Pupils equal and round. No scleral icterus. No injection or drainage. ENT: No nasal bleeding or discharge. Mucous membranes pink and moist. NECK: Trachea midline. No JVD. CARDIOVASCULAR: Irregularly irregular RESPIRATORY: No accessory muscle use. Decreased breath sounds bilaterally GASTROINTESTINAL: Abdomen soft, non-tender, nondistended. Hepatic and splenic margins not palpable. MUSCULOSKELETAL: Extremities without clubbing, cyanosis, or edema. No obvious deformities. NEUROLOGICAL: Awake and alert, confused. Appears to move extremities Assessment and Plan Problem List: (1) Sepsis (2) Encephalopathy (3) Metabolic acidosis (4) Mycotic aneurysm (5) Hemorrhagic cerebrovascular accident (CVA) (6) Ischemic stroke of frontal lobe (7) S/P AVR (8) Diabetes (9) Acute hypoxemic respiratory failure (10) HCAP (healthcare-associated pneumonia) (11) Paroxysmal a-fib (12) NANCY (acute kidney injury) (13) Bilateral pleural effusion (14) MSSA (methicillin susceptible Staphylococcus aureus) septicemia (15) HLD (hyperlipidemia) (16) HTN (hypertension) (17) Anasarca (18) Hematemesis Assessment and Plan 1) History of mechanical aortic valve replacement, previously on Coumadin Had GI bleed with INR 5.8 CVA off Coumadin with hemorrhagic conversion once placed on heparin Hematemesis off anticoagulation with drop in Hgb of 3g Not an anticoagulation candidate, would consider ASA 81mg once ok with neurosurgery/GI 2) CHF s/p right sided thoracentesis 3) Not a cardiac catheterization candidate, so would not plan on ischemic evaluation 4) Septic Emboli noted cranially RADHA showing small echodensity on the mitral valve, possible endocarditis vs ruptured chord, mild MR... 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
--- NOTE | 2016-09-13 13:25 | HHI.IDPN ---
Subjective Subjective Remarks Patient is a 70-year-old female, transferred from [facility] to the [facility] after she had coffee ground emesis, and hypoxemia. Patient was initially at [facility] with an acute GI bleed back in July 2016. She had a very high pro-time, and she had been on Coumadin for her atrial fibrillation and aVR. GI workup at that time did not reveal any active source of bleeding. 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 She was started on anticoagulation, and had hemorrhagic conversion of her stroke. She underwent CTA and finding showed suggestion of mycotic aneurysm. She apparently developed sepsis at that time and required pressors for shock, she was intubated. She was subsequently transferred to the [facility] on August 12, and underwent coiling. 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 RADHA however did not show any vegetation in any of her valves. She subsequently improved and got extubated. She was transferred to [facility] for comprehensive rehabilitation on August 28, 2016. Infectious disease recommendation at that time is for her to complete Rocephin and rifampin September. While at [place], she was doing rehabilitation. She's had some problem with lethargy. On the day of admission she apparently had nausea and vomiting and had some abdominal pain and some chest pain. She had coffee ground emesis. Her O2 saturation at that time was in the 70s, and she appeared dyspneic. She was therefore admitted to the [facility] for closer monitoring and further evaluation and treatment. While at [place] she had 2 units of packed RBC that was transfused. Her hemoglobin was staying around 10, and on the day of admission it was down to 8. She's had some low-grade temps. According to the nurse she's been very lethargic this morning. Patient just came back from the radiology department for she had thoracenteses as well as CT of the head. Patient currently is on nasal O2. She is not on any pressors. Monitor shows atrial fibrillation. CT of the abdomen and pelvis showed possible ileus, and she had evidence of bilateral pleural effusion and consolidation. She also had a urinalysis which showed some pyuria. Patient's urine output has been low, and her creatinine had gone up to 1.44. It was 0.8 previously. Infectious disease consultation has been requested to evaluate patient with multiple problems including sepsis, UTI, possible pneumonia. RECORDS from [facility] Patient was initially at [facility] for GIB admitted 07/28 Developed ischemic CVA R frontal, hemorrhagic transformation on anticoagulation She was transferred to [facility] and had CTA which showed an aneurysm, possible mycotic. 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, ?mycotic aneursym Last (+) BC at [facility] was 08/14 according to the notes Patient was initially on IV vanco and switched to Rocephin 08/17; had been on Rifampin since 08/13 Last ID note recommended Abx Rx until September 29 for presumed MSSA AVR Also from conversation with Dr Garcia ID - he read RADHA to me on phone, AVR ok and no other valve abnormality to suggest vegetation 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 All the studies done at [facility] are CT head (which showed abnormality in the R parietal), no brain MRI done Notes reviewed Temps ok Transferred out of [facility] RADHA done - D/W Dr Reyes, has abnormality at MV, could be vegetation, or chordae ruptured Not SOB Not doing much of physical activity BC here have been negative UO good Creatinine improving Pleural fluid C/S negative Antibiotics Oxacillin Rifampin Lines LUE PICC - no evidence of infection Past Medical History Reviewed Allergies: Coded Allergies: Codeine (Verified Allergy, Unknown, 08/27/16) Haldol (Verified Allergy, Unknown, 08/27/16) Objective . Vital Signs Date Time Temp Pulse Resp B/P Pulse Ox O2 Delivery O2 Flow Rate FiO2 09/13/16 12:00 97.8 98 26 169/90 94 09/13/16 08:00 97.0 103 22 180/66 94 09/13/16 04:00 97.2 99 20 160/81 94 09/13/16 00:00 97.6 94 18 128/62 96 09/12/16 18:59 96.2 98 20 132/71 93 09/12/16 17:08 102 28 153/68 99 09/12/16 17:06 108 27 147/68 97 09/12/16 17:04 102 23 138/66 93 09/12/16 17:02 104 24 171/81 99 09/12/16 17:00 102 32 189/79 99 09/12/16 16:58 108 31 182/84 96 09/12/16 16:56 107 26 172/78 98 09/12/16 16:54 104 24 178/77 98 09/12/16 16:52 109 24 173/81 97 09/12/16 16:50 98 23 181/77 98 09/12/16 16:48 101 23 181/79 100 09/12/16 16:46 98.4 103 23 189/81 99 09/12/16 16:44 104 24 169/74 99 09/12/16 16:42 101 24 98/70 93 09/12/16 16:00 102 25 168/72 91 09/12/16 16:00 95 09/12/16 15:00 100 19 94 09/12/16 14:01 92 19 171/74 91 09/12/16 14:00 92 19 91 09/12/16 09/12/16 09/13/16 15:00 23:00 07:00 Intake Total 461 ml Output Total 1100 ml 1730 ml 850 ml Balance -639 ml -1730 ml -850 ml Intake Oral 200 ml IV Total 261 ml Output Urine Total 1100 ml 1730 ml 850 ml # Bowel Movements 1 2 . Laboratory Tests Test 09/12/16 05:50 Hemoglobin 9.2 GM/DL Hematocrit 27.7 % Microbiology Date/Time Procedure Status Source Growth 09/12/16 15:07 Aerobic Blood Culture - Preliminary Resulted Blood Peripheral NO GROWTH IN 1 DAY 09/12/16 15:07 Anaerobic Blood Culture - Preliminary Resulted Blood Peripheral NO GROWTH IN 1 DAY 09/12/16 15:20 Aerobic Blood Culture - Preliminary Resulted Blood Peripheral NO GROWTH IN 1 DAY 09/12/16 15:20 Anaerobic Blood Culture - Preliminary Resulted Blood Peripheral NO GROWTH IN 1 DAY Imaging Abdomen X-Ray 09/08/16 0000 Signed Impressions: Service Date/Time: Thursday, September 08, 2016 10:03 - CONCLUSION: Nonspecific bowel gas pattern again seen with multiple dilated air-filled loops of small bowel, now predominantly located in the left hemiabdomen. Decrease in the amount of air in the colon. Migue Lockett MD Last Impressions Thoracentesis 09/04/16 1540 Signed Impressions: Service Date/Time: Sunday, September 04, 2016 15:34 - CONCLUSION: 1. Uncomplicated right thoracentesis with removal of 600 mL of clear yellow fluid. There is only a minimal amount of right pleural fluid remaining. 2. Small left pleural effusion. There is also bilateral lower lobe atelectasis and patchy consolidation in the lungs bilaterally. Julian Lua MD Lower Extremity Ultrasound 09/04/16 0000 Signed Impressions: Service Date/Time: Sunday, September 04, 2016 09:34 - CONCLUSION: No evidence of DVT. Rohith Gibson MD Head CT 09/04/16 0000 Signed Impressions: Service Date/Time: Sunday, September 04, 2016 15:22 - CONCLUSION: 1. There appears to be an intracranial mass measuring 1.3 cm surrounded by vasogenic edema high along the right cerebral vertex. In a patient with a previous history of breast cancer, metastatic disease is the primary consideration. Recommend MRI of the brain with and without contrast further evaluation. Rohith Gibson MD Lung Scan- Nuclear Medicine 09/03/16 0000 Signed Impressions: Service Date/Time: Saturday, September 03, 2016 22:02 - CONCLUSION: Low probability for pulmonary embolism. Mikel Ross MD Physical Exam GENERAL: awake and alert, not in respiratory distress. SKIN: Warm and dry. No generalized rash, no evidence of embolic lesions. HEENT: [place] conjunctiva. R scleral hemorrhage almost gone. Pupils equal, round and reactive to light. Full EOM. Moist oral mucosa EARS, NOSE AND THROAT: Nose without bleeding or purulent nasal discharge. Moist oral mucosa. NECK: Trachea midline. Supple and not tender, no meningeal signs CARDIOVASCULAR: Irregular rate and rhythm. Has harsh systolic murmur at base of the heart. RESPIRATORY: Coarse breath sounds bilaterally. No rales, wheezing or rhonchi. Decreased at bases ABDOMEN: Globular and distended, has a large incisional/ventral hernia, has diffuse mild tenderness, no guarding or rebound, bowel sounds present and hypoactive. EXTREMITIES: No clubbing, cyanosis. Both feet cool to touch, no mottling. Skin tight both LE. No calf tenderness. NEUROLOGICAL: No facial asymmetry, full EOM, tongue midline. Equal motor strength PSYCHIATRIC: Calm and cooperative LINE: No evidence of infection : Ruiz in place, clear yellow urine Assessment & Plan Remarks IMPRESSION Sepsis, source? resolved - has UTI - ?new PNA, ?aspiration - on Rx for MSSA sepsis, and presumed PVE, AVR, RADHA negative - has ileus MSSA sepsis, with ?mycotic aneurysm, RADHA at [facility] neg, has been on Rx for possible PVE 3 enhancing lesions in brain, looks more of septic embolic lesions - not a lot of edema around the lesions which would be if an abscess - has been on Rocephin 9CNS dosing) and Rifampin the whole time - ?if these were embolic lsions from the aneurysm coiling, not seen because no MRI done at [facility] - BC here are negative so far - ?failed Rx Possible new vegetation in MV - ?failed Rx with Rocephin/Rifampin - here have been negative Recurrent GIB, H/H stable CVA, S/P coiling of aneurysm Chronic atrial fib S/P AVR 2005 Renal insufficiency, ?due to sepsis - improving Candiduria - repeat UA better RECOMMENDATION Continue Oxacillin for MSSA, ?failed Rocephin, has possible new veg on RADHA in MV Continue Rifampin for synergy against MSSA and presumed PVE, with ASSISTANT PASSENGER LOCOMOTIVE ENGINEER septic emboli - ?due to coiling on mycotic aneurysm or from possible new MV vegetation Await imaging studies from [facility] and [facility] Monitor progress Duration of Rx will be longer than September 29 as originally planned due to development of multiple enhancing lesions in brain, possible ASSISTANT PASSENGER LOCOMOTIVE ENGINEER septic amboli, and possible new MV vegetation Follow new C/S Family requesting transfer to [facility] per family request - CM working on it Mary Valadez MD Sep 13, 2016 13:25
--- NOTE | 2016-09-13 14:46 | HHI.DS ---
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 Diagnosis: Principal (8) HTN (hypertension) ICD Code: I10 Diagnosis: Principal (9) HLD (hyperlipidemia) ICD Code: E78.5 Diagnosis: Principal (10) MSSA (methicillin susceptible Staphylococcus aureus) septicemia ICD Code: A41.01 Diagnosis: Principal (11) NANCY (acute kidney injury) ICD Code: N17.9 Diagnosis: Principal (12) HCAP (healthcare-associated pneumonia) ICD Code: J18.9 Diagnosis: Principal (13) S/P AVR ICD Code: Z95.2 Diagnosis: Principal (14) Anasarca ICD Code: R60.1 (15) Acute hypoxemic respiratory failure ICD Code: J96.01 Diagnosis: Principal (16) Lower extremity pain, bilateral ICD Code: M79.604 Diagnosis: Principal (17) Diabetes ICD Code: E11.9 Diagnosis: Principal (18) Ileus ICD Code: K56.7 Diagnosis: Principal Procedures thoracentesis RADHA Brief History - From Admission This is a 70-year-old female with past medical history of paroxysmal atrial fibrillation not on anti-correlation secondary to GI bleed, hypertension, CHF, status post aVR 2005, breast cancer status post mastectomy, colon cancer status post partial ascending colon resection with resultant chronic diarrhea who is being admitted to the intensive care unit as to being transferred from [facility]. The patient was admitted to [facility] on July 28 with GI bleeding from the rectum and he was found to have a supratherapeutic INR 5.8, at that time he was, at that time she was on Coumadin. The patient underwent an EGD and colonoscopy for further evaluation after her hemoglobin dropped however no clear source of bleeding was identified. She was started then on a PPI. On 08/06/16, she complained of diplopia and CT of the brain showed right frontal ischemic CVA. She was anticoagulated with heparin and had a hemorrhagic conversion. Patient had a CTA which was suspicious for mycotic aneurysm. The patient then became septic with a temperature of 104 and at the time requiring intubation and Henrry-Synephrine drip. The patient was transferred to [facility] on 08/12/16 and underwent coiling. As per review of medical records her stay was complicated by sepsis and MSSA bacteremia thought to be related to prosthetic valve endocarditis. However a RADHA was done and it failed to show this. The patient then developed respiratory failure/H And required intubation and mechanical ventilation after which the patient was treated on Rocephin 2 g IV every 12 verified then 300 mg by mouth twice a day with an end date on 09/29/16. The patient was admitted to [facility] for comprehensive rehabilitation evaluation and treatment on 08/27/16. Today the patient had an episode of coffee-ground emesis. The patient is currently complaining of abdominal pain. Has been noted that the patient desats into the high 70s when off oxygen. As per the report of the Leopoldo Means the patient complained of chest pain. The patient states that she does not remember what happened, or vomiting earlier. The patient however does state that she was feeling very nauseous yesterday. Currently denies any shortness of breath, chest pain, fevers, chills, denies any nausea. CT of the abdomen and pelvis was ordered and this showed a relatively diffuse intention of the small bowel and colon, possible representing ileus. There are a few decompressed segments of small bowel. Pattern is present to indicate small bowel obstruction. There is a small amount free fluid in the abdomen and pelvis. Moderate size bilateral pleural effusions with atelectasis and consolidation in the lower lobes as well as anasarca. CBC/BMP: 09/12/16 0550 09/11/16 0645 Significant Findings Laboratory Tests Test 09/10/16 09/11/16 09/12/16 18:10 06:45 05:50 Urine Protein 30 mg/dL (NEG-TRACE) Urine Occult Blood TRACE (NEG) Urine Mucus FEW /lpf (OCC) Red Blood Count 3.39 MIL/MM3 (4.00-5.30) Hemoglobin 9.8 GM/DL 9.2 GM/DL (11.6-15.3) (11.6-15.3) Hematocrit 30.8 % 27.7 % (35.0-46.0) (35.0-46.0) Mean Corpuscular Hemoglobin 31.8 % Concent (32.0-36.0) Red Cell Distribution Width 21.3 % (11.6-17.2) Potassium Level 3.1 MEQ/L (3.5-5.1) Blood Urea Nitrogen 31 MG/DL (7-18) Creatinine 1.08 MG/DL (0.50-1.00) Estimat Glomerular Filtration 50 ML/MIN (>89) Rate Random Glucose 159 MG/DL (74-106) Calcium Level 7.6 MG/DL (8.5-10.1) Direct Bilirubin 0.7 MG/DL (0.0-0.2) Aspartate Amino Transf 14 U/L (15-37) (AST/SGOT) Alkaline Phosphatase 148 U/L (45-117) Total Protein 5.5 GM/DL (6.4-8.2) Albumin 2.0 GM/DL (3.4-5.0) Imaging Last Impressions Abdomen X-Ray 09/08/16 0000 Signed Impressions: Service Date/Time: Thursday, September 08, 2016 10:03 - CONCLUSION: Nonspecific bowel gas pattern again seen with multiple dilated air-filled loops of small bowel, now predominantly located in the left hemiabdomen. Decrease in the amount of air in the colon. Migue Lockett MD Brain MRI 09/05/16 0000 Signed Impressions: Service Date/Time: Monday, September 05, 2016 16:39 - CONCLUSION: At least three small areas of abnormal contrast enhancement as described above that would be consistent with metastatic disease. Findings are also suspicious for scattered dural enhancement that could be indicative of leptomeningeal disease. Lumbar puncture could be used to confirm. Demetrio Lowery MD FACR Thoracentesis 09/04/16 1540 Signed Impressions: Service Date/Time: Sunday, September 04, 2016 15:34 - CONCLUSION: 1. Uncomplicated right thoracentesis with removal of 600 mL of clear yellow fluid. There is only a minimal amount of right pleural fluid remaining. 2. Small left pleural effusion. There is also bilateral lower lobe atelectasis and patchy consolidation in the lungs bilaterally. Julian Lua MD Lower Extremity Ultrasound 09/04/16 0000 Signed Impressions: Service Date/Time: Sunday, September 04, 2016 09:34 - CONCLUSION: No evidence of DVT. Rohith Gibson MD Head CT 09/04/16 0000 Signed Impressions: Service Date/Time: Sunday, September 04, 2016 15:22 - CONCLUSION: 1. There appears to be an intracranial mass measuring 1.3 cm surrounded by vasogenic edema high along the right cerebral vertex. In a patient with a previous history of breast cancer, metastatic disease is the primary consideration. Recommend MRI of the brain with and without contrast further evaluation. Rohith Gibson MD Lung Scan-VQ Nuclear Medicine 09/03/16 0000 Signed Impressions: Service Date/Time: Saturday, September 03, 2016 22:02 - CONCLUSION: Low probability for pulmonary embolism. Mikel Ross MD PE at Discharge GENERAL: This is a well-nourished, well-developed patient, nad. CARDIOVASCULAR: Regular rate and rhythm without murmurs RESPIRATORY: Clear to auscultation. Breath sounds equal bilaterally but decreased at the bases. No wheezes GASTROINTESTINAL: Abdomen soft, some discomfort w deep palpation throughout but no guarding or rebound. MUSCULOSKELETAL: Extremities with 1+ edema. able to move her arms and feet NEUROLOGICAL: awake and alert but confused. Hospital Course Pt admitted for Sepsis secondary to MSSA bacteremia secondary to prosthetic valve endocarditis, HR MANAGER infection, small brain abscesses, UTI, healthcare associated pneumonia - s/p zosyn, vanco, rocephin - Initial plan was to transfer to [facility]. Neurosurgeon at the [facility] reviewed the records and suggests the brain findings were more consistent with small abscesses that cannot be surgically drained at this time. The recommendation was to continue IV antibiotics and repeat MRI in 6-8 weeks. This was communicated to the family. Per notes, family requesting transfer to [facility] in [facility] and pt has been accepted. - ID has been following the patient, recommendations are to Continue Oxacillin for MSSA, ?failed Rocephin, has possible new veg on RADHA in MV per RADHA performed 09/13/16 Continue Rifampin for synergy against MSSA and presumed PVE, with HR MANAGER septic emboli which may possibly be due to coiling on mycotic aneurysm Await imaging studies from [facility], not yet available. Duration of Rx will be longer than September 29 as originally planned due to development of multiple enhancing lesions in brain, possible HR MANAGER septic amboli, and possible new MV vegetation Follow new C/S. Debility: pt has been refusing PT. patient has been encouraged her to work w PT and explained the importance of this. Hematemesis- resolved. Transfuse as needed, GI following. Acute renal failure-secondary to ATN, nephrology following, s/p Bumex drip now on bumex IV TID, Cr 1.08, s/p bicarbonate drip. No hydronephrosis is CT scan of the abdomen. Bilateral pleural effusion-status post recent therapeutic thoracenteses.2-D echo shows mild LVH. Estimated ejection fractions in the range of 55-60%. There is no regional wall motion abnormality. Bileaflet aortic valve prosthesis present. Paroxysmal a-fib, hypertension, status post previous AVR-metoprolol on hold, anticoagulation on hold, cardiology following, aspirin once neurosurgery clears patient. Due to history of GI bleed and intracranial hemorrhage, hold anticoagulation. Per cardiology, poor prognosis, consider palliative care if no improvement. Acute hypoxemic respiratory failure - Likely due to HCAP.VQ scan low probability for PE. on nasal cannula Lower extremity pain, bilateral -DVT ruled out with bilat venous doppler. Diabetes- hold metformin, sliding scale insulin with NovoLog. Ileus, constipation-GI following, diet as tolerated, GI has signed off, pt on mechanical soft diet, ADA Pt Condition on Discharge: Stable Discharge Disposition: Trnsfr to Other Facility Discharge Time: > 30 minutes Discharge Instructions DIET: Follow Instructions for: Diabetic Diet Additional Diet Instructions: mechanical soft, no liquid restrictions Activities you can perform: Regular-No Restrictions Grisel Thurman MD Sep 13, 2016 14:46
[2016-09-13 16:00] VITALS: BP 168/84; PULSE 88; RESP 18; TEMP 98.4; O2SAT 97
== END 2016-09-13 17:56 | disposition short-term general hospital (02) | DRG 871 ==
LOC: HIMN 15:02 → HOCB 09-12 18:40
PROVIDERS: ADMIT Hospitalist; ATTEND Hospitalist
PROC: 0W993ZX Drainage of Right Pleural Cavity, Percutaneous Approach, Diagnostic (ICD-10-PCS; principal; 2016-09-04)
PROC: B246ZZ4 Ultrasonography of Right and Left Heart, Transesophageal (ICD-10-PCS; 2016-09-12)
DX: A41.01 Sepsis due to Methicillin susceptible Staphylococcus aureus (principal); N17.0 Acute kidney failure with tubular necrosis; J96.01 Acute respiratory failure with hypoxia; G93.6 Cerebral edema; G06.0 Intracranial abscess and granuloma; I11.0 Hypertensive heart disease with heart failure; G93.40 Encephalopathy, unspecified; J18.9 Pneumonia, unspecified organism; I33.0 Acute and subacute infective endocarditis; K92.0 Hematemesis; I50.9 Heart failure, unspecified; I76 Septic arterial embolism; E87.2 Acidosis; K56.7 Ileus, unspecified; J98.11 Atelectasis; B37.49 Other urogenital candidiasis; Z85.038 Personal history of other malignant neoplasm of large intestine; Z85.3 Personal history of malignant neoplasm of breast; E78.5 Hyperlipidemia, unspecified; Z86.73 Personal history of transient ischemic attack (TIA), and cerebral infarction without residual deficits; Z87.891 Personal history of nicotine dependence; I48.0 Paroxysmal atrial fibrillation; Z95.2 Presence of prosthetic heart valve; M79.605 Pain in left leg; M79.604 Pain in right leg; E11.9 Type 2 diabetes mellitus without complications; K43.2 Incisional hernia without obstruction or gangrene; Z88.5 Allergy status to narcotic agent; R34 Anuria and oliguria; Y95 Nosocomial condition; E66.9 Obesity, unspecified; I34.0 Nonrheumatic mitral (valve) insufficiency; I66.9 Occlusion and stenosis of unspecified cerebral artery
CPT/HCPCS: 32555; 36600; 70450; 70553; 74000; 76937; 78582; 80048; 80053; 80061; 80076; 80202; 81001; 82150; 82805; 82945; 82948; 83605; 83615; 83735; 83880; 83935; 83986; 84100; 84155; 84157; 84300; 84484; 85007; 85014; 85018; 85025; 85027; 85379; 87040; 87070; 87081; 87086; 87205; 88112; 88305; 89051; 93005; 93306; 93312; 93320; 93325; 93970; A9540; A9567; A9577; C9113; J0360; J0696; J1100; J1815; J2270; J2543; J2700; J3370; J3480; J7030; J7040; J7070